=== PATIENT | female | born 1995 | race Caucasian/White ===

== ENCOUNTER 2016-08-13 12:28 | Outpatient (CLI) | payer OTHER ==
[2016-08-13 13:18] LABS: AMNISURE (ROM) NEGATIVE (NEGATIVE)
[2016-08-13 13:23] LABS: APPEARANCE,URINE CLEAR; BILIRUBIN,URINE NEGATIVE (NEGATIVE); GLUCOSE, URINE NEGATIVE (NEGATIVE); KETONES,URINE NEGATIVE (NEGATIVE); LEUKOCYTE ESTERASE,URINE NEGATIVE (NEGATIVE); NITRITE,URINE NEGATIVE (NEGATIVE); PROTEIN,URINE NEGATIVE (NEGATIVE); URINE SPECIFIC GRAVITY 1.002; UROBILINOGEN,URINE NEGATIVE mg/dL (<2.0)
[2016-08-13 13:41] LABS: URINE BARBITURATES SCREEN NEGATIVE; URINE METHADONE SCREEN NEGATIVE; URINE OPIATES LOW NEGATIVE; URINE PHENCYCLIDINE SCREEN NEGATIVE
--- NOTE | 2016-08-13 14:00 | L&D Flow Sheet ---
LD Flowsheet Datetime Report Generated by CPN: 08/13/2016 14:00 Datetime: 08/13/2016 13:30 Uterine Activity Monitor Mode: External; Palpation (Sydnee Baidy, RN) Frequency (min): none (Sydnee Baidy, RN) Assessment A Monitor Mode: External US (Sydnee Baidy, RN) FHR Baseline Rate : 150 (Sydnee Baidy, RN) Variability: Moderate 6-25 bpm (Sydnee Baidy, RN) Accelerations: 10X10 (Sydnee Baidy, RN) Decelerations: None (Sydnee Baidy, RN) Datetime: 08/13/2016 13:05 Vital Signs NBP Sys/Nikki/Mean (mmHg): 120 (QS system process) : 71 (QS system process) : 89 (QS system process) Pulse: 86 (QS system process) Datetime: 08/13/2016 13:02 Pain Pain Scale: 3 (Sydnee Baidy, RN) Pain Presence: Intermittent (Sydnee Baidy, RN) Pain Type: Cramping (Sydnee Baidy, RN) Pain Location: Abdomen; Back (Sydnee Baidy, RN) Pain Goal: 1 (Sydnee Baidy, RN) Vaginal Exam Vaginal Bleeding: None (Sydnee Baidy, RN) Maternal Assessment Level of Consciousness: Fully Conscious (Sydnee Eller, YUNG) DTR's/Clonus: DTRs 2+; No Clonus (Sydnee Eller, YUNG) Headache: Denies (Sydnee Eller, RN) Breath Sounds, Left: Clear and Equal (Sydnee Eller, RN) Breath Sounds, Right: Clear and Equal (Sydnee Eller, RN) Nausea/Vomiting: Denies (Sydnee Eller, YUNG) RUQ Epigastric Pain: Denies (Sydnee Eller, YUNG) Patient Care Patient Position/Activity: Semi-Fowlers (Sydnee Eller, YUNG) Teaching Instructional Method: Verbal; Patient Instructed; Verbalized Understanding (Sydnee Eller RN) Plan of Care: Plan of Care Discussed (Sydnee Eller RN) Unit Routine: [place] to Room; Call Wilde; Bed; Monitoring (Sydnee lEler RN) Datetime: 08/13/2016 12:51 Communication Communication Comments: Dr Todd notified of pt complaint of urge to push and possible srom. (Sydnee Eller RN)
--- NOTE | 2016-08-13 16:00 | L&D Flow Sheet ---
LD Flowsheet Datetime Report Generated by CPN: 08/13/2016 16:00 Datetime: 08/13/2016 15:26 Patient Care Comments: pt back from US, orders received for only toco to be reapplied. (Sydnee Baidy, RN) Datetime: 08/13/2016 14:37 Patient Care Comments: pt taken off monitor to go to US (Sydnee Baidy, RN) Datetime: 08/13/2016 14:30 Monitor Mode: External; Palpation (Sydnee Baidy, RN) Frequency (min): none (Sydnee Baidy, RN) Monitor Mode: External US (Sydnee Baidy, RN) FHR Baseline Rate : 145 (Sydnee Baidy, RN) Variability: Moderate 6-25 bpm (Sydnee Baidy, RN) Accelerations: 15X15 (Sydnee Baidy, RN) Decelerations: None (Sydnee Baidy, RN) Datetime: 08/13/2016 14:00 Monitor Mode: External; Palpation (Sydnee Baidy, RN) Frequency (min): none (Sydnee Baidy, RN) Monitor Mode: External US (Sydnee Baidy, RN) FHR Baseline Rate : 150 (Sydnee Baidy, RN) Variability: Moderate 6-25 bpm (Sydnee Baidy, RN) Accelerations: 15X15 (Sydnee Baidy, RN) Decelerations: None (Sydnee Baidy, RN)
[2016-08-13 16:02] LABS: CHLAM PCR NOT DETECTED (NOT DETECT)
== END 2016-08-13 17:30 | disposition home or self-care (01) ==
LOC: LC 12:28
PROVIDERS: ATTEND Student in an Organized Health Care Education/Training Program
PROC: 4A1HXCZ Monitoring of Products of Conception, Cardiac Rate, External Approach (ICD-10-PCS; principal; 2016-08-13)
DX: O47.1 False labor at or after 37 completed weeks of gestation (principal); Z3A.39 39 weeks gestation of pregnancy
CPT/HCPCS: 59025; 84112; 87086; 87210; 81001; 87081; 80307; 87491; 87591; 76815; Q0114

== ENCOUNTER 2016-09-03 20:02 | Outpatient (CLI) | payer OTHER ==
[2016-09-03 20:59] LABS: URINE BARBITURATES SCREEN NEGATIVE; URINE METHADONE SCREEN NEGATIVE; URINE OPIATES LOW NEGATIVE; URINE PHENCYCLIDINE SCREEN NEGATIVE
[2016-09-03 21:02] LABS: APPEARANCE,URINE SLIGHTLY-CLOUDY; BILIRUBIN,URINE NEGATIVE (NEGATIVE); CALCIUM OXALATE CRYSTALS,URINE FEW /HPF; GLUCOSE, URINE NEGATIVE (NEGATIVE); KETONES,URINE NEGATIVE (NEGATIVE); LEUKOCYTE ESTERASE,URINE TRACE (NEGATIVE); NITRITE,URINE NEGATIVE (NEGATIVE); PROTEIN,URINE NEGATIVE (NEGATIVE); URINE SPECIFIC GRAVITY 1.011; UROBILINOGEN,URINE NEGATIVE mg/dL (<2.0)
[2016-09-03] MEDS ORDERED: RINGERS SOLUTION,LACTATED 1,000 ML IV PRN (21:35)
[2016-09-03] MEDS ORDERED: ONDANSETRON HCL INJ/PF 4 MG/2 ML SDV IV ONE (21:35)
[2016-09-03] MEDS ORDERED: LOPERAMIDE HCL 2 MG CAPSULE PO ONE (21:35)
[2016-09-03] MEDS ORDERED: ONDANSETRON HCL INJ/PF 4 MG/2 ML SDV ONE (21:53)
[2016-09-03] MEDS ORDERED: LOPERAMIDE HCL 2 MG CAPSULE ONE (21:53)
--- NOTE | 2016-09-04 04:46 | L&D Admission Assessment ---
LD ADM ASMT Datetime Report Generated by CPN: 09/04/2016 04:45 PATIENT ASSESSMENT Assessment Type: Triage (09/03/2016 20:15:Rose Bacon RN) PAIN Pain Scale: patient states pain has improved but still uncomfortable at times especially when baby moves (09/03/2016 22:27:Rose Bacon RN) Pain Scale: 4 (09/03/2016 20:15:Rose Bacon RN) Pain Presence: Intermittent (09/03/2016 20:15:Rose Bacon RN) Pain Type: Contraction (09/03/2016 20:15:Rose Bacon RN) Pain Location: Abdomen; Other (Annotations: pelvis) (09/03/2016 20:15:Rose Bacon RN) Pain Related to Contraction: Yes (09/03/2016 20:15:Rose Bacon RN) CONTRACTIONS Frequency (min): uterine irritability (09/03/2016 22:49:Rose Bacon RN) Frequency (min): x1 with uterine irritability (09/03/2016 22:30:Rose Bacon RN) Frequency (min): none (09/03/2016 21:30:Rose Bacon RN) Frequency (min): irregular (09/03/2016 21:01:Rose Bacon RN) Frequency (min): q 10 minutes (09/03/2016 20:15:Rose Bacon RN) Duration (sec): 50 (09/03/2016 22:30:Rose Bacon RN) Duration (sec): 30-60 (09/03/2016 21:01:Rose Bacon RN) Quality: Mild (09/03/2016 22:30:Rose Bacon RN) Quality: Mild (09/03/2016 21:30:Rose Bacon RN) Quality: Mild (09/03/2016 21:01:Rose Bacon RN) Resting Tone [place]: Relaxed (09/03/2016 22:49:Roes Bacon RN) Resting Tone [place]: Relaxed (09/03/2016 22:30:Rose Bacon RN) Resting Tone Hercules: Relaxed (09/03/2016 21:30:Rose Bacon RN) Resting Tone Hercules: Relaxed (09/03/2016 21:01:Rose Bacon RN) VAGINAL EXAM Membranes Status: Intact (09/03/2016 20:15:Rose Bacon RN) NEURO Level of Consciousness: Fully Conscious (09/03/2016 20:15:Rose Bacon RN) DTR's/Clonus: DTRs 2+; No Clonus (09/03/2016 20:15:Rose Bacon RN) Headache: Denies (09/03/2016 20:15:Rose Bacon RN) Dizziness: No (09/03/2016 20:15:Rose Bacon RN) Blurred Vision: No (09/03/2016 20:15:Rose Bacon RN) Extremity Numbness/Tingling : None (09/03/2016 20:15:Rose Bacon RN) Extremity Movement: Full Range of Motion (09/03/2016 20:15:Rose Bacon RN) CARDIOVASCULAR Heart Rhythm: Regular (Annotations: normal s1s2 on auscultation with no evidence of murmur ) (09/03/2016 20:15:Rose Bacon RN) Nailbeds: [place] (09/03/2016 20:15:Rose Bacon RN) Capillary Refill: Less than 3 Seconds (09/03/2016 20:15:Rose Bacon RN) Lower Extremities Edema: None (09/03/2016 20:15:Rose Bacon RN) Lower Extremities Edema Degree: None (09/03/2016 20:15:Rose Bacon RN) Upper Extremities Edema: None (09/03/2016 20:15:Rose Bacon RN) Upper Extremities Edema Degree: None (09/03/2016 20:15:Rose Bacon RN) Facial Edema: None (09/03/2016 20:15:Rose Bacon RN) Umair's Sign Left Leg: Negative (09/03/2016 20:15:Rose Bacon RN) Umair's Sign Right Leg: Negative (09/03/2016 20:15:Rose Bacon RN) DVT RISK ASSESSMENT DVT Risk Age: Age less than 41 years (09/03/2016 20:15:Rose Bacon RN) DVT Risk BMI: BMI<31 (09/03/2016 20:15:Rose Bacon RN) DVT Risk Surgery: None Applicable (09/03/2016 20:15:Rose Bacon RN) DVT Risk Other: Women Only- or (<1 month) (09/03/2016 20:15:Rose Bacon RN) DVT Risk Total: 1 (09/03/2016 20:15:QS system process) DVT Risk Text: Low Risk (<10%) No specific measures, early ambulation (09/03/2016 20:15:QS system process) RESPIRATORY Respiratory Effort: Unlabored; Regular Rhythm; Equal Expansion (09/03/2016 20:15:Rose Bacon RN) Breath Sounds, Left: Clear and Equal (09/03/2016 20:15:Rose Bacon RN) Breath Sounds, Right: Clear and Equal (09/03/2016 20:15:Rose Bacon RN) Cough Productivity: None (09/03/2016 20:15:Rose Bacon RN) GASTROINTESTINAL Nausea/Vomiting: Present (Annotations: nausea) (09/03/2016 20:15:Rose Bacon RN) Bowel Sounds: Normoactive; All Quadrants (09/03/2016 20:15:Rose Bacon RN) RUQ Epigastric Pain: Denies (09/03/2016 20:15:Rose Bacon RN) Bowel Patterns: Diarrhea (Annotations: mutiple episodes ) (09/03/2016 20:15:Rose Bacon RN) Hemorrhoids: None (09/03/2016 20:15:Rose Bacon RN) Diet Type: Regular diet (09/03/2016 20:15:Rose Bacon RN) GENITOURINARY Bladder: Nondistended (09/03/2016 20:15:Rose Bacon RN) Frequency of Urination: No (09/03/2016 20:15:Rose Bacon RN) Urination Burning: Yes (Annotations: pressure when voiding ) (09/03/2016 20:15:Rose Bacon RN) CVA Tenderness: No (09/03/2016 20:15:Rose Bacon RN) Vaginal Bleeding: None (09/03/2016 20:15:Rose Bacon RN) Vaginal Discharge Amount: Small (09/03/2016 20:15:Rose Bacon RN) Vaginal Discharge Color: White (09/03/2016 20:15:Rose Bacon RN) Vaginal Discharge Odor: Non-Odorous (09/03/2016 20:15:Rose Bacon RN) Vaginal Discharge Character: Thin (09/03/2016 20:15:Rose Bacon RN) INTEGUMENTARY Skin Color: Normal for Race (09/03/2016 20:15:Rose Bacon RN) Skin Temperature: Warm (09/03/2016 20:15:Rose Bacon RN) Skin Moisture: Dry (09/03/2016 20:15:Rose Bacon RN) FRANK SKIN ASSESSMENT Frank Scale Sensory Perception: No Impairment- Responds to verbal commands. Has no sensory deficit which would limit ability to feel or voice pain or discomfort (09/03/2016 20:15:Rose Bacon RN) Frank Scale Moisture: Rarely Moist- Skin is usually dry. Linen only requires changing at routine intervals (09/03/2016 20:15:Rose Bacon RN) Frank Scale Activity: Walks Frequently- Walks outside the room at least twice a day and inside room at least every 2 hours during the day. (09/03/2016 20:15:Rose Bacon RN) Frank Scale Mobility: No Limitations- Makes major and frequent changes in position without assistance (09/03/2016 20:15:Rose Bacon RN) Frank Scale Nutrition: Excellent- Eats most of every meal. Never refuses a meal. Usually eats a total of 4 or more servings of meat and dairy products. Occasionally eats between meals. Does not require supplementation (09/03/2016 20:15:Rose Bacon RN) Frank Scale Friction and Shear: No Apparent Problem- Moves in bed and in chair independently and has sufficient muscle strength to lift up completely during move. Maintains good position in bed or chair at all times (09/03/2016 20:15:Rose Bacon RN) Frank Scale Total: 23 (09/03/2016 20:15:QS system process) Frank Scale Risk: No Risk of Pressure Ulcer Noted at this Time (09/03/2016 20:15:QS system process) SUPPORT Family Support: Significant Other supportive, at bedside frequently (09/03/2016 20:15:Rose Bacon RN) Emotional State: Calm/Relaxed (09/03/2016 20:15:Rose Bacon RN) SAFETY Call [place]de Within Reach: Yes (09/03/2016 20:15:Rose Bacon RN) Side Rails Up: Yes (09/03/2016 20:15:Rose Bacon RN) Bed Wheels Locked: Yes (09/03/2016 20:15:Rose Bacon RN) Arm Bands Present: Yes (09/03/2016 20:15:Rose Bacon RN) Isolation: [place] (09/03/2016 20:15:Rose Bacon RN) FALL SCREEN Fall Risk History of Falling: (0) No (09/03/2016 20:15:Rose Bacon RN) Fall Risk Secondary Diagnosis: (0) No (09/03/2016 20:15:Rose Baocn RN) Fall Risk Ambulatory Aid: (0) None/Bedrest/Wheelchair/Nurse Assist (09/03/2016 20:15:Rose Bacon RN) Fall Risk IV Therapy: (0) No (09/03/2016 20:15:Rose Bacon RN) Fall Risk Gait: (0) Normal/Bedrest/Immobile (09/03/2016 20:15:Rose Bacon RN) Fall Risk Mental Status: (0) Oriented to Own Ability (09/03/2016 20:15:Rose Bacon RN) Fall Risk Score: 0 (09/03/2016 20:15:QS system process) Fall Risk Score Definition: No Risk: No action required (09/03/2016 20:15:QS system process) RECENT TRAVEL/INFECTIOUS DISEASE Recent Exp Communicable Disease: No (09/03/2016 20:15:Rose Bacon RN) Cough or Fever: No (09/03/2016 20:15:Rose Bacon RN) Foreign Travel Past 10 Days: No (09/03/2016 20:15:Rose Bacon RN) Open Wounds or Sores: No (09/03/2016 20:15:Rose Bacon RN) Prior Antibiotic Resistance Tx: No (09/03/2016 20:15:Rose Bacon RN) Cultures Obtained: Not Applicable (09/03/2016 20:15:Rose Bacon RN) Isolation Initiated: No (09/03/2016 20:15:Rose Bacon RN) Pt/Family Education: Handwashing Hygiene (09/03/2016 20:15:Rose Bacon RN) BABY A FHR Baseline Rate (bpm) Baby A: 145 (09/03/2016 22:49:Rose Bacon RN) FHR Baseline Rate (bpm) Baby A: 150 (09/03/2016 22:30:Rose Bacon RN) FHR Baseline Rate (bpm) Baby A: 150 (09/03/2016 21:30:Rose Bacon RN) FHR Baseline Rate (bpm) Baby A: 150 (09/03/2016 21:01:Rose Bacon RN) Variability Baby A: Moderate 6-25 bpm (09/03/2016 22:49:Rose Bacon RN) Variability Baby A: Moderate 6-25 bpm (09/03/2016 22:30:Rose Bacon RN) Variability Baby A: Moderate 6-25 bpm (09/03/2016 21:30:Rose Bacon RN) Variability Baby A: Moderate 6-25 bpm (09/03/2016 21:01:Rose Bacon RN) Accelerations Baby A: 15X15 (09/03/2016 22:49:Rose Bacon RN) Accelerations Baby A: 10X10 (09/03/2016 22:30:Rose Bacon RN) Accelerations Baby A: 15X15 (09/03/2016 21:30:Rose Bacon RN) Decelerations Baby A: None (09/03/2016 22:49:Rose Bacon RN) Decelerations Baby A: None (09/03/2016 22:30:Rose Bacon RN) Decelerations Baby A: None (09/03/2016 21:30:Rose Bacon RN)
--- NOTE | 2016-09-04 04:46 | Antepartum Discharge Summary ---
Antepartum DC Datetime Report Generated by CPN: 09/04/2016 04:45 DIET/ACTIVITY/RESTRICTIONS Diet: Regular (09/03/2016 23:04:Rose Bacon, YUNG) Activity: Normal Activity (09/03/2016 23:04:Rose Bacon, RN) TEACHING/INSTRUCTIONS/REFERRALS Instructions Given To: patient and (09/03/2016 23:04:Rose Bacon RN) Instructions Understood: Patient Verbalized Understanding; Support Person Verbalized Understanding (09/03/2016 23:04:Rose Bacon RN) Referrals: None (09/03/2016 23:04:Rose Bacon RN) Educational Materials- Other: kick counts, labor signs, and wha approved meds (09/03/2016 23:04:Rose Bacon RN) DISCHARGE INFORMATION Discharged AMA: No (09/03/2016 23:04:Rose Bacon RN) Discharge Date/Time: 09/03/2016 23:04 (09/03/2016 23:04:Rose Bacon RN) Discharged To: Home (09/03/2016 23:04:Rose Bacon RN) Discharge Provider Name: Dr. Hines (09/03/2016 23:04:Rose Bacon RN) Accompanied By: (09/03/2016 23:04:Rose Bacon RN) Discharge Method: Ambulatory (09/03/2016 23:04:Rose Bacon RN) Condition: Stable (09/03/2016 23:04:Rose Bacon RN) FOLLOW UP INFORMATION Follow Up With: [facility] (09/03/2016 23:04:Rose Bacon RN) Follow Up On: As Scheduled (09/03/2016 23:04:Rose Bacon RN) Comments: patient has appt scheduled with sousa (09/03/2016 23:04:Rose Bacon RN)
--- NOTE | 2016-09-04 04:46 | L&D Discharge Summary ---
OB Discharge Summary Datetime Report Generated by CPN: 09/04/2016 04:45 DISCHARGE DIAGNOSIS Diagnosis/Symptoms: False Labor; Gastroenteritis Diagnoses/Symptoms Other: cramping Treatment/Procedures Other: cervical length Gestation: 29.2 Number of Babies in Womb: 1 Parity: 0 DIET/ACTIVITY/RESTRICTIONS Diet: Regular Activity: Normal Activity TEACHING/INSTRUCTIONS/REFERRALS Instructions Given To: patient and Instructions Understood: Patient Verbalized Understanding; Support Person Verbalized Understanding Referrals: None Educational Materials- Other: kick counts, labor signs, and wha approved meds DISCHARGE INFORMATION Discharged AMA: No Discharge Date/Time: 09/03/2016 23:04 Discharged To: Home Discharge Provider Name: Dr. Hines Accompanied By: Discharge Method: Ambulatory Condition: Stable FOLLOW UP INFORMATION Follow Up With: [facility] Follow Up On: As Scheduled Follow Up Phone Number: [facility] - Comments: patient has appt scheduled with merry
--- NOTE | 2016-09-04 04:46 | L&D Flow Sheet ---
LD Flowsheet Datetime Report Generated by CPN: 09/04/2016 04:45 Datetime: 09/03/2016 23:04 Communication Additional Nursing Comments: discharged home in stable condition (Rose Kossmann, RN) Datetime: 09/03/2016 22:49 Uterine Activity Monitor Mode: External; Palpation (Rose Bacon RN) Frequency (min): uterine irritability (Rose Bacon RN) Resting Tone (Palpate): Relaxed (Rose Bacon, YUNG) Assessment A Monitor Mode: External US (Rose Bacon RN) FHR Baseline Rate : 145 (Rose Bacon RN) Variability: Moderate 6-25 bpm (Rose Bacon RN) Accelerations: 15X15 (Rose Bacon, YUNG) Decelerations: None (Rose Bacon RN) Comments: AGA (Rose Bacon RN) Datetime: 09/03/2016 22:30 Uterine Activity Monitor Mode: External; Palpation (Rose Isamarann, RN) Frequency (min): x1 with uterine irritability (Rose Bacon, RN) Quality: Mild (Rose Isamarann, RN) Duration (sec): 50 (Rose Isamarann, RN) Resting Tone (Palpate): Relaxed (Rose Jessysmann, RN) Assessment A Monitor Mode: External US (Rose Bacon, RN) FHR Baseline Rate : 150 (Rose Bacon, RN) Variability: Moderate 6-25 bpm (Rose Bacon, RN) Accelerations: 10X10 (Rose Bacon, RN) Decelerations: None (Rose Bacon, RN) Comments: AGA (Rose Bacon, RN) Datetime: 09/03/2016 22:27 NBP Sys/Nikki/Mean (mmHg): 119 (QS system process) : 59 (QS system process) : 82 (QS system process) Pulse: 86 (QS system process) Respirations: 16 (Rose Jessysully, RN) Pain Pain Scale: patient states pain has improved but still uncomfortable at times especially when baby moves (Rose Bacon, YUNG) LaborFlag: Labor (QS system process) Datetime: 09/03/2016 22:25 Communication Comments: Dr. Hines aware of cervical length 2.8cm. Orders received to discharge home to followup in office. (Rose Bacon, RN) Datetime: 09/03/2016 22:03 Medications Antiemetics/Antacids: Zofran IV (mg) @; Other Antiemetic/Antacid @ (Annotations: imodium 2mg po, zofran 4mg sivp) (Rose Bacon RN) Datetime: 09/03/2016 21:58 Patient Care IV/Blood Work: IV Started; IV Infusing per Order (Rose Kossmann, RN) Datetime: 09/03/2016 21:55 Patient Care Comments: arrived back on unit from ultrasound, awaiting results. (Rose Kossmann, RN) Datetime: 09/03/2016 21:33 Patient Care Comments: to ultrasound (Rose Kossmann, RN) Datetime: 09/03/2016 21:31 NBP Sys/Nikki/Mean (mmHg): 110 (QS system process) : 70 (QS system process) : 86 (QS system process) Pulse: 94 (QS system process) LaborFlag: Labor (QS system process) Datetime: 09/03/2016 21:30 Uterine Activity Monitor Mode: External; Palpation (Rose Bacon, RN) Frequency (min): none (Rose Pennann, RN) Quality: Mild (Rose Jessysmann, RN) Resting Tone (Palpate): Relaxed (Rose Jessysmann, RN) Assessment A Monitor Mode: External US (Rose Bacon, RN) FHR Baseline Rate : 150 (Rose Pennann, RN) Variability: Moderate 6-25 bpm (Rose Kossmann, RN) Accelerations: 15X15 (Rose Kossmann, RN) Decelerations: None (Rose Jessysmann, RN) Comments: AGA (Rose Jessysmann, RN) Datetime: 09/03/2016 21:15 Communication Comments: Discussed POC with Dr. Hines regarding patient history, urine results, monitoring. Orders for cervical length, lr bolus x 1 liter, zofran 4mg sivp, and imodium 2mg tab po. (Rose Bacon, RN) Datetime: 09/03/2016 21:01 NBP Sys/Nikki/Mean (mmHg): 122 (QS system process) : 80 (QS system process) : 95 (QS system process) Pulse: 96 (QS system process) Uterine Activity Monitor Mode: External; Palpation (Rose Bacon RN) Frequency (min): irregular (Rose Bacon RN) Quality: Mild (Rose Bacon RN) Duration (sec): 30-60 (Rose Bacon RN) Resting Tone (Palpate): Relaxed (Rose Bacon, YUNG) Assessment A Monitor Mode: External US (Rose Bacon RN) FHR Baseline Rate : 150 (Rose Bacon RN) Variability: Moderate 6-25 bpm (Rose Bacon RN) Comments: broken tracing due to movement that was palpated and audible. scant tracing of heart rate found to be 150 and aga (Rose Bacon RN) LaborFlag: Labor (QS system process) Datetime: 09/03/2016 20:58 Patient Position/Activity: Left Lateral (Dunia Andreas, RN) Datetime: 09/03/2016 20:52 Comments: RN at bedside (Dunia Andreas, RN) Datetime: 09/03/2016 20:31 NBP Sys/Nikki/Mean (mmHg): 119 (QS system process) : 69 (QS system process) : 87 (QS system process) Pulse: 90 (QS system process) LaborFlag: Labor (QS system process) Datetime: 09/03/2016 20:15 Vital Signs Stage of : Labor (Rose Jessysmann, RN) Frequency (min): q 10 minutes (Rose Isamarann, RN) Pain Pain Scale: 4 (Rose Bacon, YUNG) Pain Presence: Intermittent (Rose Bacon, YUNG) Pain Type: Contraction (Rose Bacon, YUNG) Pain Location: Abdomen; Other (Annotations: pelvis) (Rose Bacon, YUNG) Pain Coping: Talking Through Contractions; Breathing Through Contractions (Rose Bacon, YUNG) Vaginal Exam Membrane Status: Intact (Rose Bacon, YUNG) Vaginal Bleeding: None (Rose Bacon, YUNG) Maternal Assessment Level of Consciousness: Fully Conscious (Rose Bacon, YUNG) DTR's/Clonus: DTRs 2+; No Clonus (Rose Bacon, YUNG) Headache: Denies (Rose Bacon RN) Breath Sounds, Left: Clear and Equal (Rose Bacon RN) Breath Sounds, Right: Clear and Equal (Rose Bacon RN) Nausea/Vomiting: Present (Annotations: nausea) (Rose Bacon RN) RUQ Epigastric Pain: Denies (Rose Bacon RN) LaborFlag: Labor (QS system process)
--- NOTE | 2016-09-04 04:46 | L&D Current Admission ---
Current Admit Datetime Report Generated by CPN: 09/04/2016 04:45 ADMISSION INFORMATION Chief Complaint: Contractions; Pain on Urination; Nausea; Other (Annotations: diarrhea frequently ) (09/03/2016 20:15:Rose Bacon RN) Chief Complaint: Uterine Cramping; Other (08/13/2016 13:02:Sydnee Eller RN)
--- NOTE | 2016-09-04 04:46 | L&D General Admission ---
General Admit Datetime Report Generated by CPN: 09/04/2016 04:45 INFORMATION Patient Age: 20 (08/13/2016 12:28:QS system process) EDC: 11/17/2016 00:00 (08/13/2016 12:43:Sydnee Eller RN) : 1 (08/13/2016 12:43:Sydnee Eller RN) Para: 0 (08/13/2016 17:32:Sydnee Eller RN) Para: 0 (08/13/2016 12:43:Sydnee Eller RN) Term: 0 (08/13/2016 12:43:Sydnee Eller RN) : 0 (08/13/2016 12:43:Sydnee Eller RN) Spontaneous Abortions: 0 (08/13/2016 12:43:Sydnee Eller RN) Induced Abortions: 0 (08/13/2016 12:43:Sydnee Eller RN) Livin (08/13/2016 12:43:Sydnee Eller RN) Cesareans: 0 (08/13/2016 12:43:Sydnee Eller RN) VBACs: 0 (08/13/2016 12:43:Sydnee Eller RN) Ectopic: 0 (08/13/2016 12:43:Sydnee Eller RN) Multiple Births: 0 (08/13/2016 12:43:Sydnee Eller RN) Baby, Number in Womb: 1 (08/13/2016 17:32:Sydnee Eller RN) Baby, Number in Womb: 1 (08/13/2016 12:43:Sydnee Eller RN) CARE Primary Design Engineering Specialist: [facility] (08/13/2016 12:43:Sydnee Eller RN) Prepregnancy Weight (lb): 138 (Annotations: Data stored by CPN on behalf of user) (08/13/2016 12:43:Sydnee Eller RN) Prepregnancy Weight (kg): 62.7 (08/13/2016 12:43:QS system process) Height (in): 64 (08/13/2016 12:57:QS system process) ALLERGIES Medication Allergy: No (08/13/2016 12:43:Sydnee Eller RN) Medication Allergies: No Known Allergies (08/13/2016) (08/13/2016 12:56:QS system process) Latex Allergy: No Latex Allergies (08/13/2016 12:43:Sydnee Eller RN) Food Allergies: n/a (08/13/2016 12:43:Sydnee Eller RN) Environmental Allergies: n/a (08/13/2016 12:43:Sydnee Eller RN) COMMUNICATION Primary Language: Swedish (08/13/2016 12:43:Sydnee Eller RN) Medical Tx Preferred Language: Swedish (08/13/2016 12:43:Sydnee Eller RN) Communication Barrier(s): None (08/13/2016 12:43:Sydnee Eller RN) DEMOGRAPHICS Address: [address] [place] [address] (08/13/2016 12:28:QS system process) Zipcode: [address] (08/13/2016 12:28:QS system process) Home (08/13/2016 12:28:QS system process) SSN: [id number] (08/13/2016 12:28:QS system process) Next of Kin Name: REYES STEVE (08/13/2016 12:28:QS system process) Next of Kin (08/13/2016 12:28:QS system process) Next of Kin Relationship: SPO (08/13/2016 12:28:QS system process) Date of : 1995 (08/13/2016 12:28:QS system process) Marital Status: (08/13/2016 12:28:QS system process) Sex: Female (08/13/2016 12:28:QS system process) Race: (08/13/2016 12:28:QS system process) Ethnicity: Non- or (08/13/2016 12:28:QS system process) Worship: None (08/13/2016 12:28:QS system process) DRUG AND ALCOHOL USE Alcohol: No (08/13/2016 12:43:Sydnee Eller RN) Cigarettes: Never Smoker. [id number] (08/13/2016 12:43:Sydnee Eller RN) Marijuana: No (08/13/2016 12:43:Sydnee Eller RN) Cocaine: No (08/13/2016 12:43:Sydnee Eller RN) Other Illicit Drugs: No (08/13/2016 12:43:Sydnee Eller RN) VACCINE HISTORY Influenza Vaccine: Yes (08/13/2016 12:43:Sydnee Eller RN) Influenza Date: 01/2016 (08/13/2016 12:43:Sydnee Eller RN) Pneumococcal Vaccine: No (08/13/2016 12:43:Sydnee Eller RN) Tetanus Vaccine: Uncertain (08/13/2016 12:43:Sydnee Eller RN) Tdap Vaccine: Uncertain (08/13/2016 12:43:Sydnee Eller RN) Hepatitis B Vaccine: Uncertain (08/13/2016 12:43:Sydnee Eller RN) Feeding Preference: Breast (08/13/2016 12:43:Sydnee Eller RN) Circumcision: N/A (08/13/2016 12:43:Rose Bacon RN) Classes Attended: Yes (08/13/2016 12:43:Rose Bacno RN) Tubal Ligation: No (08/13/2016 12:43:Rose Bacon RN) Tubal Authorization Signed: N/A (08/13/2016 12:43:Rose Bacon RN) Consent: N/A (08/13/2016 12:43:Rose Kossmann, RN) Consent Signed: N/A (08/13/2016 12:43:Rose Bacon RN) Pain Management Plans: Spinal (08/13/2016 12:43:Rose Bacon RN) Other Pain Management Plans: scheduled for csection (08/13/2016 12:43:Rose Bacon RN) Plans for Labor and Delivery: None (08/13/2016 12:43:Rose Bacon RN) Support Person: reyes (08/13/2016 12:43:Rose Bacon RN) Support Person Relationship: (08/13/2016 12:43:Rose Bacon RN) Cultural/Spritual Practice: Eliana (08/13/2016 12:43:Rose Bacon RN) Spir/Cult Dietary Needs: No (08/13/2016 12:43:Rose Bacon RN) LIVING SITUATION/DISCHARGE PLAN Living Arrangements: House (08/13/2016 12:43:Rose Bacon RN) Adequate Access to:: Electric; Heat; Refrigeration; Plumbing/Running water; Phone; Transportation (08/13/2016 12:43:Rose Bacon RN) WIC Program: Needs referral (08/13/2016 12:43:Rose aBcon RN) Discharge Vulcanized Fiber Unit Operator Person: reyes (08/13/2016 12:43:Rose Bacon RN) Person to Help after Discharge: reyes (08/13/2016 12:43:Rose Bacon RN) Currently Using Commun Resources: Eliana (08/13/2016 12:43:Rose Bacon RN) Outside Agency/Oceanographic Meteorologist: No (08/13/2016 12:43:Rose Bacon RN) Car Seat for Discharge: Yes (08/13/2016 12:43:Rose Bacon RN) Adoption Requested: No (08/13/2016 12:43:Rose Bacon RN) Pt Contact w/ Post : N/A (08/13/2016 12:43:Rose Bacon RN) LABS Blood Type: O Positive (08/13/2016 12:43:Rose Bacon RN) Group Beta Strep: postive (08/13/2016 13:35:Aisha Encinas RN) Gonorrhea: Negative (08/13/2016 12:43:Aisha Encinas RN) Chlamydia: Negative (08/13/2016 12:43:Aisha Encinas RN) RPR/VDRL: Nonreactive (Annotations: Data stored by N on behalf of user) (08/13/2016 12:43:Rose Bacon RN) HIV Results: negative (08/13/2016 12:43:Rose Bacon RN) Hepatitis B: Negative (08/13/2016 12:43:Rose Bacon RN) Rubella: Immune (08/13/2016 12:43:Rose Bacon RN) OB/PREVIOUS HISTORY Current Procedures: Ultrasound (08/13/2016 12:43:Sydnee Eller RN) History of Previous : No (08/13/2016 12:43:Sydnee Eller RN) History of Gestational Diabetes: No (08/13/2016 12:43:Sydnee Eller RN) History of PIH: No (08/13/2016 12:43:Sydnee Eller RN) History of Incompetent Cervix: No (08/13/2016 12:43:Sydnee Eller RN) History of Placenta Previa/Abrup: No (08/13/2016 12:43:Sydnee Eller RN) History of Macrosomia: No (08/13/2016 12:43:Sydnee Eller RN) History of IUGR: No (08/13/2016 12:43:Sydnee Eller RN) History of Hemorrhage: No (08/13/2016 12:43:Sydnee Eller RN) History of Loss/Stillborn: No (08/13/2016 12:43:Sydnee Eller RN) History of : No (08/13/2016 12:43:Sydnee Eller RN) History of D (Rh) Sensitization: No (08/13/2016 12:43:Sydnee Eller RN) History Recurrent Loss/Stillborn: No (08/13/2016 12:43:Sydnee Eller RN) History Depression/PP Depression: No (08/13/2016 12:43:Sydnee Eller RN) History of Uterine Anomaly/ROSIO: No (08/13/2016 12:43:Sydnee Eller RN) History of Infertility: No (08/13/2016 12:43:Sydnee Eller RN) History of ART Treatment: No (08/13/2016 12:43:Sydnee Eller RN) History of ROSIO: No (08/13/2016 12:43:Sydnee Eller RN) Comments Obstetrical History: G1 current will have to deliver at [place] 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), GDM diet controlled (08/13/2016 12:43:Rose Bacon RN) MEDICAL HISTORY Med Hx Diabetes: Yes (08/13/2016 12:43:Rose Bacon RN) Diabetes Type: Gestational Diabetes (08/13/2016 12:43:Rose Bacon RN) Med Hx Hypertension: No (08/13/2016 12:43:Sydnee Eller RN) Med Hx Heart Disease: No (08/13/2016 12:43:Sydnee Eller RN) Med Hx Autoimmune Disorder: No (08/13/2016 12:43:Sydnee Eller RN) Med Hx Kidney Disease/UTI: No (08/13/2016 12:43:Sydnee Eller RN) Med Hx Neurologic/Epilepsy: No (08/13/2016 12:43:Sydnee Eller RN) Med Hx Psychiatric Disorders: No (08/13/2016 12:43:Sydnee Eller RN) Med Hx Hepatitis/Liver Disease: No (08/13/2016 12:43:Sydnee Eller RN) Med Hx Varicosities/Phlebitis: No (08/13/2016 12:43:Sydnee Eller RN) Med Hx Thyroid Dysfunction: No (08/13/2016 12:43:Sydnee Eller RN) Med Hx Trauma/Violence: No (08/13/2016 12:43:Sydnee Eller RN) Med Hx Blood Transfusion: No (08/13/2016 12:43:Sydnee Eller RN) Med Hx Pulmonary (Asthma,TB): No (08/13/2016 12:43:Sydnee Eller RN) Med Hx Breast: No (08/13/2016 12:43:Sydnee Eller RN) Med Hx SPORTS BOOK SERVER Surgery: No (08/13/2016 12:43:Sydnee Eller RN) Med Hx Hospitalization/Surgery: No (08/13/2016 12:43:Sydnee Eller RN) Med Hx Anesthetic Complications: No (08/13/2016 12:43:Sydnee Eller RN) Med Hx Abnormal Pap Smear: No (08/13/2016 12:43:Sydnee Eller RN) Other Medical Diseases: No (08/13/2016 12:43:Sydnee Eller RN) Med Hx Significant Family Hx: No (08/13/2016 12:43:Sydnee Eller RN) 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 (08/13/2016 12:43:Rose Bacon RN) INFECTIOUS HISTORY Inf Hx Gonorrhea: No (08/13/2016 12:43:Sydnee Eller RN) Inf Hx Chlamydia: No (08/13/2016 12:43:Sydnee Eller RN) Inf Hx Syphilis: No (08/13/2016 12:43:Sydnee Eller RN) Inf Hx HIV/AIDS: No (08/13/2016 12:43:Sydnee Eller RN) Inf Hx Human Papilloma Virus: No (08/13/2016 12:43:Sydnee Eller RN) Inf Hx Pt/Partner Genital Herpes: No (08/13/2016 12:43:Sydnee Eller RN) Inf Hx Tuberculosis/Exposure: No (08/13/2016 12:43:Sydnee Eller RN) Inf Hx Hepatitis B,C: No (08/13/2016 12:43:Sydnee Eller RN) Inf Hx Rash or Viral Illness: No (08/13/2016 12:43:Sydnee Eller RN) GENETIC HISTORY Gen Hx Age >=35 at HAO: No (08/13/2016 12:43:Sydnee Eller RN) Gen Hx Thalassemia: Yes (08/13/2016 12:43:Rose Bacon RN) Gen Hx Congenital Heart Defect: No (08/13/2016 12:43:Sydnee Eller RN) Gen Hx Neural Tube Defect: Yes (08/13/2016 12:43:Sydnee Eller RN) Gen Hx Down's Syndrome: No (08/13/2016 12:43:Sydnee Eller RN) Gen Hx Marcial-Sachs: No (08/13/2016 12:43:Sydnee Eller RN) Gen Hx Abbey: No (08/13/2016 12:43:Sydnee Eller RN) Gen Hx Familial Dysautonomia: No (08/13/2016 12:43:Sydnee Eller RN) Gen Hx Sickle Cell Disease/Trait: No (08/13/2016 12:43:Sydnee Eller RN) Gen Hx Hemophilia/Blood Disorder: No (08/13/2016 12:43:Rose Bacon RN) Gen Hx Muscular Dystrophy: No (08/13/2016 12:43:Sydnee Eller RN) Gen Hx Cystic Fibrosis: No (08/13/2016 12:43:Sydnee Eller RN) Gen Hx Huntingtons Chorea: No (08/13/2016 12:43:Sydnee Eller RN) Gen Hx Mental Retardation/Autism: No (08/13/2016 12:43:Sydnee Eller RN) Gen Hx Tested for Fragile X: No (08/13/2016 12:43:Sydnee Eller RN) Gen Hx Other Inher/Chromosomal: No (08/13/2016 12:43:Sydnee Eller RN) Gen Hx Maternal Metabolic DO: No (08/13/2016 12:43:Sydnee Eller RN) Gen Hx Pt Father or FOB Defect: No (08/13/2016 12:43:Sydnee Eller RN) Gen Hx Other Genetic History: No (08/13/2016 12:43:Sydnee Eller RN) Gen Hx Drugs/Meds since LMP: No (08/13/2016 12:43:Sydnee Eller RN) Gen Hx Medications: vitamins (08/13/2016 12:43:Rose Bacon RN) Details of Genetic History: mother is carrier of SMA, baby has spina bifida, beta thal minor fob has normal electrophoresis (08/13/2016 12:43:Rose Bacon RN)
== END 2016-09-03 23:04 | disposition home or self-care (01) ==
LOC: LC 20:02
PROVIDERS: ATTEND Obstetrics & Gynecology
PROC: 4A1HXCZ Monitoring of Products of Conception, Cardiac Rate, External Approach (ICD-10-PCS; principal; 2016-09-03)
DX: O47.03 False labor before 37 completed weeks of gestation, third trimester (principal); Z3A.29 29 weeks gestation of pregnancy
CPT/HCPCS: 59899; 81001; 80307; 76815; J2405

== ENCOUNTER 2016-09-22 10:50 | Outpatient (CLI) | payer OTHER ==
[2016-09-22] MEDS ORDERED: TERBUTALINE SULFATE INJ/PF 1 MG/1 ML SDV SUBCUT ONE (11:52)
[2016-09-22] MEDS ORDERED: TERBUTALINE SULFATE INJ/PF 1 MG/1 ML SDV ONE (11:53)
--- NOTE | 2016-09-22 12:40 | Non Stress Test Report ---
Non Stress Test Datetime Report Generated by CPN: 09/22/2016 12:40 DEMOGRAPHIC EGA NST: 32.0 INDICATION Indication for Study: Ordered by Provider Indication for Study (NST) Other: repeat NST MONITORING Monitor Explained: Monitor Explained; Test Explained; Patient Verbalized Understanding Time on Monitor: 09/22/2016 11:04 Time off Monitor: 09/22/2016 12:37 NST Duration: 93 NST INTERVENTIONS NST Interventions: Reposition Patient BABY A: [id number] BABY A Movement : Present FHR Baseline : 155 Accelerations : 15X15 Decelerations : None Variability : Moderate 6-25bpm NST Review: Meets Criteria for Reactive NST NST Review and Verified By : D Bellavance RNC NST Results: Reactive NST REPORT Report Trigger: Send Report
--- NOTE | 2016-09-22 15:46 | L&D Discharge Summary ---
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 Treatment/Procedures Other: cervical length Gestation: 31.6 Number of Babies in Womb: 1 Parity: 0 DIET/ACTIVITY/RESTRICTIONS Diet: Regular Activity: Normal Activity TEACHING/INSTRUCTIONS/REFERRALS Instructions Given To: patient Instructions Understood: Patient Verbalized Understanding Referrals: None Educational Materials- Other: kick counts and work note for DISCHARGE INFORMATION Discharged AMA: No Discharge Date/Time: 09/22/2016 12:37 Discharged To: Home Discharge Provider Name: Dr Farrell Accompanied By: self Discharge Method: Ambulatory Condition: Stable FOLLOW UP INFORMATION Follow Up With: [facility] Follow Up On: As Scheduled Follow Up Phone Number: [facility] - Comments: patient has appt scheduled with sousa
== END 2016-09-22 12:46 | disposition home or self-care (01) ==
LOC: LC 10:50
PROVIDERS: ATTEND Obstetrics & Gynecology
PROC: 4A1HXCZ Monitoring of Products of Conception, Cardiac Rate, External Approach (ICD-10-PCS; principal; 2016-09-22)
DX: Z34.93 Encounter for supervision of normal pregnancy, unspecified, third trimester (principal); Z36 Encounter for antenatal screening of mother; Z3A.31 31 weeks gestation of pregnancy
CPT/HCPCS: 59025; J3105

== ENCOUNTER 2016-09-25 11:48 | Outpatient (CLI) | payer OTHER ==
[2016-09-25 13:08] LABS: APPEARANCE,URINE SLIGHTLY-CLOUDY; BILIRUBIN,URINE NEGATIVE (NEGATIVE); GLUCOSE, URINE NEGATIVE (NEGATIVE); KETONES,URINE NEGATIVE (NEGATIVE); LEUKOCYTE ESTERASE,URINE TRACE (NEGATIVE); NITRITE,URINE NEGATIVE (NEGATIVE); PROTEIN,URINE NEGATIVE (NEGATIVE); URINE SPECIFIC GRAVITY 1.006; UROBILINOGEN,URINE NEGATIVE mg/dL (<2.0)
--- NOTE | 2016-09-25 13:10 | Non Stress Test Report ---
Non Stress Test Datetime Report Generated by CPN: 09/25/2016 13:09 DEMOGRAPHIC EGA NST: 32.3 INDICATION Indication for Study: Diabetes Mellitus; Ordered by Provider MONITORING Monitor Explained: Monitor Explained; Test Explained; Patient Verbalized Understanding Time on Monitor: 09/25/2016 12:34 Time off Monitor: 09/25/2016 13:01 NST Duration: 27 NST INTERVENTIONS NST Interventions: PO Hydration; Reposition Patient Physician Notified NST: H MYNOR, CNM BABY A Movement : Present Contraction Frequency : NONE FHR Baseline : 145 Accelerations : 15X15 Decelerations : None Variability : Moderate 6-25bpm NST Review: Meets Criteria for Reactive NST NST Review and Verified By : YUNG Yang Results: Reactive NST REPORT Report Trigger: Send Report
[2016-09-25 13:32] LABS: URINE BARBITURATES SCREEN NEGATIVE; URINE METHADONE SCREEN NEGATIVE; URINE OPIATES LOW NEGATIVE; URINE PHENCYCLIDINE SCREEN NEGATIVE
--- NOTE | 2016-09-25 16:12 | L&D Discharge Summary ---
OB Discharge Summary Datetime Report Generated by CPN: 09/25/2016 16:12 DISCHARGE DIAGNOSIS Diagnosis/Symptoms: Reassuring Surveillance - Annotate Details; Other Diagnoses/Symptoms Other: REACTIVE NST- GDM Treatment/Procedures Other: cervical length Gestation: 32.0 Number of Babies in Womb: 1 Parity: 0 DIET/ACTIVITY/RESTRICTIONS Diet: Regular Activity: Normal Activity TEACHING/INSTRUCTIONS/REFERRALS Instructions Given To: patient Instructions Understood: Patient Verbalized Understanding; Support Person Verbalized Understanding Referrals: None Educational Materials- Other: REVIEWED KICK COUNTS CARE NOTES RECEIVED @ PRIOR VISIT- PT HAD NO QUESTIONS. DISCHARGE INFORMATION Discharged AMA: No Discharge Date/Time: 09/25/2016 13:05 Discharged To: Home Discharge Provider Name: Alfonzo LOWE CNDestiny Accompanied By: FOB Discharge Method: Ambulatory Condition: Stable FOLLOW UP INFORMATION Follow Up With: [facility] Follow Up On: As Scheduled Follow Up Phone Number: [facility] - Comments: patient has appt scheduled with sousa
--- NOTE | 2016-09-27 22:48 | Antepartum Discharge Summary ---
Antepartum DC Datetime Report Generated by CPN: 09/27/2016 22:45 Diet: Regular (09/25/2016 13:05:Cindy Mackay RN) Activity: Normal Activity (09/25/2016 13:05:Cindy Mackay RN) Instructions Understood: Patient Verbalized Understanding; Support Person Verbalized Understanding (09/25/2016 13:05:Cindy Mackay RN) Referrals: None (09/25/2016 13:05:Cindy Mackay RN) Educational Materials- Other: REVIEWED KICK COUNTS CARE NOTES RECEIVED @ PRIOR VISIT- PT HAD NO QUESTIONS. (09/25/2016 13:05:Cindy Mackay RN) Discharged AMA: No (09/25/2016 13:05:Cindy Mackay RN) Discharge Date/Time: 09/25/2016 13:05 (09/25/2016 13:05:Cindy Mackay RN) Discharged To: Home (09/25/2016 13:05:Cindy Mackay RN) Discharge Provider Name: Alfonzo LOWE CNM (09/25/2016 13:05:Cindy Mackay RN) Accompanied By: LENNY (09/25/2016 13:05:Cindy Mackay RN) Discharge Method: Ambulatory (09/25/2016 13:05:Cindy Mackay RN) Condition: Stable (09/25/2016 13:05:Cindy Mackay RN) Follow Up With: [facility] (09/25/2016 13:05:Cindy Mackay RN) Follow Up On: As Scheduled (09/25/2016 13:05:Cindy Mackay RN) Follow Up Phone Number: [facility] - (09/25/2016 13:05:Cindy Mackay RN)
--- NOTE | 2016-09-27 22:48 | L&D General Admission ---
General Admit Datetime Report Generated by CPN: 09/27/2016 22:45 INFORMATION Patient Age: 20 (08/13/2016 12:28:QS system process) EDC: 11/17/2016 00:00 (08/13/2016 12:43:Sydnee Eller RN) : 1 (08/13/2016 12:43:Sydnee Eller RN) Para: 0 (08/13/2016 17:32:Sydnee Eller RN) Para: 0 (08/13/2016 12:43:Sydnee Eller RN) Term: 0 (08/13/2016 12:43:Sydnee Eller RN) : 0 (08/13/2016 12:43:Sydnee Eller RN) Spontaneous Abortions: 0 (08/13/2016 12:43:Sydnee Eller RN) Induced Abortions: 0 (08/13/2016 12:43:Sydnee Eller RN) Livin (08/13/2016 12:43:Sydnee Eller RN) Cesareans: 0 (08/13/2016 12:43:Sydnee Eller RN) VBACs: 0 (08/13/2016 12:43:Sydnee Eller RN) Ectopic: 0 (08/13/2016 12:43:Sydnee Eller RN) Multiple Births: 0 (08/13/2016 12:43:Sydnee Eller RN) Baby, Number in Womb: 1 (08/13/2016 17:32:Sydnee Eller RN) Baby, Number in Womb: 1 (08/13/2016 12:43:Sydnee Eller RN) CARE Primary Voice Writing Reporter: [facility] (08/13/2016 12:43:Sydnee Eller RN) Prepregnancy Weight (lb): 138 (Annotations: Data stored by CPN on behalf of user) (08/13/2016 12:43:Sydnee Eller RN) Prepregnancy Weight (kg): 62.7 (08/13/2016 12:43:QS system process) Height (in): 64 (09/25/2016 11:58:QS system process) Height (in): 64 (09/22/2016 12:44:QS system process) Height (in): 64 (08/13/2016 12:57:QS system process) ALLERGIES Medication Allergy: No (08/13/2016 12:43:Sydnee Eller RN) Medication Allergies: No Known Allergies (08/13/2016) (08/13/2016 12:56:QS system process) Latex Allergy: No Latex Allergies (08/13/2016 12:43:Sydnee Eller RN) Food Allergies: n/a (08/13/2016 12:43:Sydnee Eller RN) Environmental Allergies: n/a (08/13/2016 12:43:Sydnee Eller RN) COMMUNICATION Primary Language: Ivorian (08/13/2016 12:43:Sydnee Eller RN) Medical Tx Preferred Language: Ivorian (08/13/2016 12:43:Sydnee Eller RN) Communication Barrier(s): None (08/13/2016 12:43:Sydnee Eller RN) DEMOGRAPHICS Address: [address] [place] [id number] (08/13/2016 12:28:QS system process) Zipcode: [address] (08/13/2016 12:28:QS system process) Home (08/13/2016 12:28:QS system process) SSN: [id number] (08/13/2016 12:28:QS system process) Next of Kin Name: REYES STEVE (08/13/2016 12:28:QS system process) Next of Kin (08/13/2016 12:28:QS system process) Next of Kin Relationship: SPO (08/13/2016 12:28:QS system process) Date of : 1995 (08/13/2016 12:28:QS system process) Marital Status: (08/13/2016 12:28:QS system process) Sex: Female (08/13/2016 12:28:QS system process) Race: (08/13/2016 12:28:QS system process) Ethnicity: Non- or (08/13/2016 12:28:QS system process) Restorationism: None (08/13/2016 12:28:QS system process) DRUG AND ALCOHOL USE Alcohol: No (08/13/2016 12:43:Sydnee Eller RN) Cigarettes: Never Smoker. [id number] (08/13/2016 12:43:Sydnee Eller RN) Marijuana: No (08/13/2016 12:43:Sydnee Eller RN) Cocaine: No (08/13/2016 12:43:Sydnee Eller RN) Other Illicit Drugs: No (08/13/2016 12:43:Sydnee Eller RN) VACCINE HISTORY Influenza Vaccine: Yes (08/13/2016 12:43:Sydnee Eller RN) Influenza Date: 01/2016 (08/13/2016 12:43:Sydnee Eller RN) Pneumococcal Vaccine: No (08/13/2016 12:43:Sydnee Eller RN) Tetanus Vaccine: Uncertain (08/13/2016 12:43:Sydnee Eller RN) Tdap Vaccine: Uncertain (08/13/2016 12:43:Sydnee Eller RN) Hepatitis B Vaccine: Uncertain (08/13/2016 12:43:Sydnee Eller RN) Feeding Preference: Breast (08/13/2016 12:43:Sydnee Eller RN) Circumcision: N/A (08/13/2016 12:43:Rose Bacon RN) Classes Attended: Yes (08/13/2016 12:43:Rose Bacon RN) Tubal Ligation: No (08/13/2016 12:43:Rose Bacon RN) Tubal Authorization Signed: N/A (08/13/2016 12:43:Rose Bacon RN) Consent: N/A (08/13/2016 12:43:Rose Bacon RN) Consent Signed: N/A (08/13/2016 12:43:Rose Bacon RN) Pain Management Plans: Spinal (08/13/2016 12:43:Rose Bacon RN) Other Pain Management Plans: scheduled for csection (08/13/2016 12:43:Rose Bacon RN) Plans for Labor and Delivery: None (08/13/2016 12:43:Rose Bacon RN) Support Person: reyes (08/13/2016 12:43:Rose Bacon RN) Support Person Relationship: (08/13/2016 12:43:Rose Bacon RN) Cultural/Spritual Practice: No (08/13/2016 12:43:Rose Bacon RN) Spir/Cult Dietary Needs: No (08/13/2016 12:43:Rose Bacon RN) LIVING SITUATION/DISCHARGE PLAN Living Arrangements: House (08/13/2016 12:43:Rose Bacon RN) Adequate Access to:: Electric; Heat; Refrigeration; Plumbing/Running water; Phone; Transportation (08/13/2016 12:43:Rose Bacon RN) WIC Program: Needs referral (08/13/2016 12:43:Rose Bacon RN) Discharge Mold Stacker Person: reyes (08/13/2016 12:43:Rose Bacon RN) Person to Help after Discharge: reyes (08/13/2016 12:43:Rose Bacon RN) Currently Using Commun Resources: No (08/13/2016 12:43:Rose Bacon RN) Outside Agency/Scale Technician: No (08/13/2016 12:43:Rose Bacon RN) Car Seat for Discharge: Yes (08/13/2016 12:43:Rose Bacon RN) Adoption Requested: No (08/13/2016 12:43:Rose Bacon RN) Pt Contact w/ Post : N/A (08/13/2016 12:43:Rose Bacon RN) LABS Blood Type: O Positive (08/13/2016 12:43:Rose Bacon RN) Group Beta Strep: postive (08/13/2016 13:35:Aisha Encinas RN) Gonorrhea: Negative (08/13/2016 12:43:Aisha Encinas RN) Chlamydia: Negative (08/13/2016 12:43:Aisha Encinas RN) RPR/VDRL: Nonreactive (Annotations: Data stored by Patti on behalf of user) (08/13/2016 12:43:Rose Bacon RN) HIV Results: negative (08/13/2016 12:43:Rose Bacon RN) Hepatitis B: Negative (08/13/2016 12:43:Rose Bacon RN) Rubella: Immune (08/13/2016 12:43:Rose Bacon RN) OB/PREVIOUS HISTORY Current Procedures: Ultrasound (08/13/2016 12:43:Sydnee Eller RN) History of Previous : No (08/13/2016 12:43:Sydnee Eller RN) History of Gestational Diabetes: No (08/13/2016 12:43:Sydnee Eller RN) History of PIH: No (08/13/2016 12:43:Sydnee Eller RN) History of Incompetent Cervix: No (08/13/2016 12:43:Sydnee Eller RN) History of Placenta Previa/Abrup: No (08/13/2016 12:43:Sydnee Eller RN) History of Macrosomia: No (08/13/2016 12:43:Sydnee Eller RN) History of IUGR: No (08/13/2016 12:43:Sydnee Eller RN) History of Hemorrhage: No (08/13/2016 12:43:Sydnee Eller RN) History of Loss/Stillborn: No (08/13/2016 12:43:Sydnee Eller RN) History of : No (08/13/2016 12:43:Sydnee Eller RN) History of D (Rh) Sensitization: No (08/13/2016 12:43:Sydnee Eller RN) History Recurrent Loss/Stillborn: No (08/13/2016 12:43:Sydnee Eller RN) History Depression/PP Depression: No (08/13/2016 12:43:Sydnee Eller RN) History of Uterine Anomaly/ROSIO: No (08/13/2016 12:43:Sydnee Eller RN) History of Infertility: No (08/13/2016 12:43:Sydnee Eller RN) History of ART Treatment: No (08/13/2016 12:43:Sydnee Eller RN) History of ROSIO: No (08/13/2016 12:43:Sydnee Eller RN) Comments Obstetrical History: G1 current will have to deliver at [place] 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), GDM diet controlled (08/13/2016 12:43:Rose Bacon RN) MEDICAL HISTORY Med Hx Diabetes: Yes (08/13/2016 12:43:Rose Bacon RN) Diabetes Type: Gestational Diabetes (08/13/2016 12:43:Rose Bacon RN) Med Hx Hypertension: No (08/13/2016 12:43:Sydnee Eller RN) Med Hx Heart Disease: No (08/13/2016 12:43:Sydnee Eller RN) Med Hx Autoimmune Disorder: No (08/13/2016 12:43:Sydnee Eller RN) Med Hx Kidney Disease/UTI: No (08/13/2016 12:43:Sydnee Eller RN) Med Hx Neurologic/Epilepsy: No (08/13/2016 12:43:Sydnee Eller RN) Med Hx Psychiatric Disorders: No (08/13/2016 12:43:Sydnee Eller RN) Med Hx Hepatitis/Liver Disease: No (08/13/2016 12:43:Sydnee Eller RN) Med Hx Varicosities/Phlebitis: No (08/13/2016 12:43:Sydnee Eller RN) Med Hx Thyroid Dysfunction: No (08/13/2016 12:43:Sydnee Eller RN) Med Hx Trauma/Violence: No (08/13/2016 12:43:Sydnee Eller RN) Med Hx Blood Transfusion: No (08/13/2016 12:43:Sydnee Eller RN) Med Hx Pulmonary (Asthma,TB): No (08/13/2016 12:43:Sydnee Eller RN) Med Hx Breast: No (08/13/2016 12:43:Sydnee Eller RN) Med Hx EDUCATIONAL THERAPY TEACHER Surgery: No (08/13/2016 12:43:Sydnee Eller RN) Med Hx Hospitalization/Surgery: No (08/13/2016 12:43:Sydnee Eller RN) Med Hx Anesthetic Complications: No (08/13/2016 12:43:Sydnee Eller RN) Med Hx Abnormal Pap Smear: No (08/13/2016 12:43:Sydnee Eller RN) Other Medical Diseases: No (08/13/2016 12:43:Sydnee Eller RN) Med Hx Significant Family Hx: No (08/13/2016 12:43:Sydnee Eller RN) 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 (08/13/2016 12:43:Rose Bacon RN) INFECTIOUS HISTORY Inf Hx Gonorrhea: No (08/13/2016 12:43:Sydnee Eller RN) Inf Hx Chlamydia: No (08/13/2016 12:43:Sydnee Eller RN) Inf Hx Syphilis: No (08/13/2016 12:43:Sydnee Eller RN) Inf Hx HIV/AIDS: No (08/13/2016 12:43:Sydnee Eller RN) Inf Hx Human Papilloma Virus: No (08/13/2016 12:43:Sydnee Eller RN) Inf Hx Pt/Partner Genital Herpes: No (08/13/2016 12:43:Sydnee Eller RN) Inf Hx Tuberculosis/Exposure: No (08/13/2016 12:43:Sydnee Eller RN) Inf Hx Hepatitis B,C: No (08/13/2016 12:43:Sydnee Eller RN) Inf Hx Rash or Viral Illness: No (08/13/2016 12:43:Sydnee Eller RN) GENETIC HISTORY Gen Hx Age >=35 at HAO: No (08/13/2016 12:43:Sydnee Eller RN) Gen Hx Thalassemia: Yes (08/13/2016 12:43:Rose Bacon RN) Gen Hx Congenital Heart Defect: No (08/13/2016 12:43:Sydnee Eller RN) Gen Hx Neural Tube Defect: Yes (08/13/2016 12:43:Sydnee Eller RN) Gen Hx Down's Syndrome: No (08/13/2016 12:43:Sydnee Eller RN) Gen Hx Marcial-Sachs: No (08/13/2016 12:43:Sydnee Eller RN) Gen Hx Abbey: No (08/13/2016 12:43:Sydnee Eller RN) Gen Hx Familial Dysautonomia: No (08/13/2016 12:43:Sydnee Eller RN) Gen Hx Sickle Cell Disease/Trait: No (08/13/2016 12:43:Sydnee Eller RN) Gen Hx Hemophilia/Blood Disorder: No (08/13/2016 12:43:Rose Bacon RN) Gen Hx Muscular Dystrophy: No (08/13/2016 12:43:Sydnee Eller RN) Gen Hx Cystic Fibrosis: No (08/13/2016 12:43:Sydnee Eller RN) Gen Hx Huntingtons Chorea: No (08/13/2016 12:43:Sydnee Eller RN) Gen Hx Mental Retardation/Autism: No (08/13/2016 12:43:Sydnee Eller RN) Gen Hx Tested for Fragile X: No (08/13/2016 12:43:Sydnee Eller RN) Gen Hx Other Inher/Chromosomal: No (08/13/2016 12:43:Sydnee Eller RN) Gen Hx Maternal Metabolic DO: No (08/13/2016 12:43:Sydnee Eller RN) Gen Hx Pt Father or FOB Defect: No (08/13/2016 12:43:Sydnee Eller RN) Gen Hx Other Genetic History: No (08/13/2016 12:43:Sydnee Eller RN) Gen Hx Drugs/Meds since LMP: No (08/13/2016 12:43:Sydnee Eller RN) Gen Hx Medications: vitamins (08/13/2016 12:43:Rose Bacon RN) Details of Genetic History: mother is carrier of SMA, baby has spina bifida, beta thal minor fob has normal electrophoresis (08/13/2016 12:43:Rose Bacon RN)
--- NOTE | 2016-09-27 22:48 | L&D Discharge Summary ---
OB Discharge Summary Datetime Report Generated by CPN: 09/27/2016 22:45 DISCHARGE DIAGNOSIS Diagnosis/Symptoms: Reassuring Surveillance - Annotate Details; Other Diagnoses/Symptoms Other: REACTIVE NST- GDM Treatment/Procedures Other: cervical length Gestation: 32.3 Number of Babies in Womb: 1 Parity: 0 DIET/ACTIVITY/RESTRICTIONS Diet: Regular Activity: Normal Activity TEACHING/INSTRUCTIONS/REFERRALS Instructions Given To: patient Instructions Understood: Patient Verbalized Understanding; Support Person Verbalized Understanding Referrals: None Educational Materials- Other: REVIEWED KICK COUNTS CARE NOTES RECEIVED @ PRIOR VISIT- PT HAD NO QUESTIONS. DISCHARGE INFORMATION Discharged AMA: No Discharge Date/Time: 09/25/2016 13:05 Discharged To: Home Discharge Provider Name: Alfonzo LOWE CNDestiny Accompanied By: FOB Discharge Method: Ambulatory Condition: Stable FOLLOW UP INFORMATION Follow Up With: [facility] Follow Up On: As Scheduled Follow Up Phone Number: [facility] - Comments: patient has appt scheduled with sousa
--- NOTE | 2016-09-27 22:48 | L&D Current Admission ---
Current Admit Datetime Report Generated by CPN: 09/27/2016 22:45 ADMISSION INFORMATION Chief Complaint: Contractions; Pain on Urination; Nausea; Other (Annotations: diarrhea frequently ) (09/03/2016 20:15:Rose Bacon RN) Chief Complaint: Uterine Cramping; Other (08/13/2016 13:02:Sydnee Eller RN)
--- NOTE | 2016-09-28 04:47 | L&D General Admission ---
General Admit Datetime Report Generated by CPN: 09/28/2016 04:46 CARE Height (in): 64 (09/25/2016 11:58:QS system process) Height (in): 64 (09/22/2016 12:44:QS system process)
--- NOTE | 2016-09-28 04:47 | Antepartum Discharge Summary ---
Antepartum DC Datetime Report Generated by CPN: 09/28/2016 04:46 Diet: Regular (09/25/2016 13:05:Cindy Mackay RN) Activity: Normal Activity (09/25/2016 13:05:Cindy Mackay RN) Instructions Understood: Patient Verbalized Understanding; Support Person Verbalized Understanding (09/25/2016 13:05:Cindy Mackay RN) Referrals: None (09/25/2016 13:05:Cindy Mackay RN) Educational Materials- Other: REVIEWED KICK COUNTS CARE NOTES RECEIVED @ PRIOR VISIT- PT HAD NO QUESTIONS. (09/25/2016 13:05:Cindy Mackay RN) Discharged AMA: No (09/25/2016 13:05:Cindy Mackay RN) Discharge Date/Time: 09/25/2016 13:05 (09/25/2016 13:05:Cindy Mackay RN) Discharged To: Home (09/25/2016 13:05:Cindy Mackay RN) Discharge Provider Name: Alfonzo LOWE CNM (09/25/2016 13:05:Cindy Mackay RN) Accompanied By: LENNY (09/25/2016 13:05:Cindy Mackay RN) Discharge Method: Ambulatory (09/25/2016 13:05:Cindy Mackay RN) Condition: Stable (09/25/2016 13:05:Cindy Mackay RN) Follow Up With: [facility] (09/25/2016 13:05:Cindy Mackay RN) Follow Up On: As Scheduled (09/25/2016 13:05:Cindy Mackay RN) Follow Up Phone Number: [facility] - (09/25/2016 13:05:Cindy Mackay RN)
--- NOTE | 2016-09-28 04:47 | L&D Discharge Summary ---
OB Discharge Summary Datetime Report Generated by CPN: 09/28/2016 04:46 DISCHARGE DIAGNOSIS Diagnosis/Symptoms: Reassuring Surveillance - Annotate Details; Other Diagnoses/Symptoms Other: REACTIVE NST- GDM Treatment/Procedures Other: cervical length Gestation: 32.3 Number of Babies in Womb: 1 Parity: 0 DIET/ACTIVITY/RESTRICTIONS Diet: Regular Activity: Normal Activity TEACHING/INSTRUCTIONS/REFERRALS Instructions Given To: patient Instructions Understood: Patient Verbalized Understanding; Support Person Verbalized Understanding Referrals: None Educational Materials- Other: REVIEWED KICK COUNTS CARE NOTES RECEIVED @ PRIOR VISIT- PT HAD NO QUESTIONS. DISCHARGE INFORMATION Discharged AMA: No Discharge Date/Time: 09/25/2016 13:05 Discharged To: Home Discharge Provider Name: Alfonzo LOWE CNDestiny Accompanied By: FOB Discharge Method: Ambulatory Condition: Stable FOLLOW UP INFORMATION Follow Up With: [facility] Follow Up On: As Scheduled Follow Up Phone Number: [facility] - Comments: patient has appt scheduled with sousa
--- NOTE | 2016-09-28 10:47 | L&D Discharge Summary ---
OB Discharge Summary Datetime Report Generated by CPN: 09/28/2016 10:45 DISCHARGE DIAGNOSIS Diagnosis/Symptoms: Reassuring Surveillance - Annotate Details; Other Diagnoses/Symptoms Other: REACTIVE NST- GDM Treatment/Procedures Other: cervical length Gestation: 32.3 Number of Babies in Womb: 1 Parity: 0 DIET/ACTIVITY/RESTRICTIONS Diet: Regular Activity: Normal Activity TEACHING/INSTRUCTIONS/REFERRALS Instructions Given To: patient Instructions Understood: Patient Verbalized Understanding; Support Person Verbalized Understanding Referrals: None Educational Materials- Other: REVIEWED KICK COUNTS CARE NOTES RECEIVED @ PRIOR VISIT- PT HAD NO QUESTIONS. DISCHARGE INFORMATION Discharged AMA: No Discharge Date/Time: 09/25/2016 13:05 Discharged To: Home Discharge Provider Name: Alfonzo LOWE CNDestiny Accompanied By: FOB Discharge Method: Ambulatory Condition: Stable FOLLOW UP INFORMATION Follow Up With: [facility] Follow Up On: As Scheduled Follow Up Phone Number: [facility] - Comments: patient has appt scheduled with sousa
--- NOTE | 2016-09-28 10:47 | L&D Current Admission ---
Current Admit Datetime Report Generated by CPN: 09/28/2016 10:45 ADMISSION INFORMATION Chief Complaint: Contractions; Pain on Urination; Nausea; Other (Annotations: diarrhea frequently ) (09/03/2016 20:15:Rose Bacon RN) Chief Complaint: Uterine Cramping; Other (08/13/2016 13:02:Sydnee Eller RN)
--- NOTE | 2016-09-28 10:47 | Antepartum Discharge Summary ---
Antepartum DC Datetime Report Generated by CPN: 09/28/2016 10:45 Diet: Regular (09/25/2016 13:05:Cindy Mackay RN) Activity: Normal Activity (09/25/2016 13:05:Cindy Mackay RN) Instructions Understood: Patient Verbalized Understanding; Support Person Verbalized Understanding (09/25/2016 13:05:Cindy Mackay RN) Referrals: None (09/25/2016 13:05:Cindy Mackay RN) Educational Materials- Other: REVIEWED KICK COUNTS CARE NOTES RECEIVED @ PRIOR VISIT- PT HAD NO QUESTIONS. (09/25/2016 13:05:Cindy Mackay RN) Discharged AMA: No (09/25/2016 13:05:Cindy Mackay RN) Discharge Date/Time: 09/25/2016 13:05 (09/25/2016 13:05:Cindy Mackay RN) Discharged To: Home (09/25/2016 13:05:Cindy Mackay RN) Discharge Provider Name: Alfonzo LOWE CNM (09/25/2016 13:05:Cindy Mackay RN) Accompanied By: LENNY (09/25/2016 13:05:Cindy Mackay RN) Discharge Method: Ambulatory (09/25/2016 13:05:Cindy Mackay RN) Condition: Stable (09/25/2016 13:05:Cindy Mackay RN) Follow Up With: [facility] (09/25/2016 13:05:Cindy Mackay RN) Follow Up On: As Scheduled (09/25/2016 13:05:Cindy Mackay RN) Follow Up Phone Number: [facility] - (09/25/2016 13:05:Cindy Mackay RN)
--- NOTE | 2016-09-28 10:47 | L&D General Admission ---
General Admit Datetime Report Generated by CPN: 09/28/2016 10:45 INFORMATION Patient Age: 20 (08/13/2016 12:28:QS system process) EDC: 11/17/2016 00:00 (08/13/2016 12:43:Sydnee Eller RN) : 1 (08/13/2016 12:43:Sydnee Eller RN) Para: 0 (08/13/2016 17:32:Sydnee Eller RN) Para: 0 (08/13/2016 12:43:Sydnee Eller RN) Term: 0 (08/13/2016 12:43:Sydnee Eller RN) : 0 (08/13/2016 12:43:Sydnee Eller RN) Spontaneous Abortions: 0 (08/13/2016 12:43:Sydnee Eller RN) Induced Abortions: 0 (08/13/2016 12:43:Sydnee Eller RN) Livin (08/13/2016 12:43:Sydnee Eller RN) Cesareans: 0 (08/13/2016 12:43:Sydnee Eller RN) VBACs: 0 (08/13/2016 12:43:Sydnee Eller RN) Ectopic: 0 (08/13/2016 12:43:Sydnee Eller RN) Multiple Births: 0 (08/13/2016 12:43:Sydnee Eller RN) Baby, Number in Womb: 1 (08/13/2016 17:32:Sydnee Eller RN) Baby, Number in Womb: 1 (08/13/2016 12:43:Sydnee Eller RN) CARE Primary 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 Shop Supervisor: [facility] (08/13/2016 12:43:Sydnee Eller RN) Prepregnancy Weight (lb): 138 (Annotations: Data stored by CPN on behalf of user) (08/13/2016 12:43:Sydnee Eller RN) Prepregnancy Weight (kg): 62.7 (08/13/2016 12:43:QS system process) Height (in): 64 (09/25/2016 11:58:QS system process) Height (in): 64 (09/22/2016 12:44:QS system process) Height (in): 64 (08/13/2016 12:57:QS system process) ALLERGIES Medication Allergy: No (08/13/2016 12:43:Sydnee Eller RN) Medication Allergies: No Known Allergies (08/13/2016) (08/13/2016 12:56:QS system process) Latex Allergy: No Latex Allergies (08/13/2016 12:43:Sydnee Eller RN) Food Allergies: n/a (08/13/2016 12:43:Sydnee Eller RN) Environmental Allergies: n/a (08/13/2016 12:43:Sydnee Eller RN) COMMUNICATION Primary Language: Latvian (08/13/2016 12:43:Sydnee Eller RN) Medical Tx Preferred Language: Latvian (08/13/2016 12:43:Sydnee Eller RN) Communication Barrier(s): None (08/13/2016 12:43:Sydnee Eller RN) DEMOGRAPHICS Address: [address] [place] [id number] (08/13/2016 12:28:QS system process) Zipcode: [id number] (08/13/2016 12:28:QS system process) Home (08/13/2016 12:28:QS system process) SSN: [id number] (08/13/2016 12:28:QS system process) Next of Kin Name: REYES STEVE (08/13/2016 12:28:QS system process) Next of Kin (08/13/2016 12:28:QS system process) Next of Kin Relationship: SPO (08/13/2016 12:28:QS system process) Date of : 1995 (08/13/2016 12:28:QS system process) Marital Status: (08/13/2016 12:28:QS system process) Sex: Female (08/13/2016 12:28:QS system process) Race: (08/13/2016 12:28:QS system process) Ethnicity: Non- or (08/13/2016 12:28:QS system process) Presybeterian: None (08/13/2016 12:28:QS system process) DRUG AND ALCOHOL USE Alcohol: No (08/13/2016 12:43:Sydnee Eller RN) Cigarettes: Never Smoker. [id number] (08/13/2016 12:43:Sydnee Eller RN) Marijuana: No (08/13/2016 12:43:Sydnee Eller RN) Cocaine: No (08/13/2016 12:43:Sydnee Eller RN) Other Illicit Drugs: No (08/13/2016 12:43:Sydnee Eller RN) VACCINE HISTORY Influenza Vaccine: Yes (08/13/2016 12:43:Sydnee Eller RN) Influenza Date: 01/2016 (08/13/2016 12:43:Sydnee Eller RN) Pneumococcal Vaccine: No (08/13/2016 12:43:Sydnee Eller RN) Tetanus Vaccine: Uncertain (08/13/2016 12:43:Sydnee Eller RN) Tdap Vaccine: Uncertain (08/13/2016 12:43:Sydnee Eller RN) Hepatitis B Vaccine: Uncertain (08/13/2016 12:43:Sydnee Eller RN) Feeding Preference: Breast (08/13/2016 12:43:Sydnee Eller RN) Circumcision: N/A (08/13/2016 12:43:Rose Bacon RN) Classes Attended: Yes (08/13/2016 12:43:Rose Bacon RN) Tubal Ligation: No (08/13/2016 12:43:Rose Bacon RN) Tubal Authorization Signed: N/A (08/13/2016 12:43:Rose Bacon RN) Consent: N/A (08/13/2016 12:43:Rose Bacon RN) Consent Signed: N/A (08/13/2016 12:43:Rose Bacon RN) Pain Management Plans: Spinal (08/13/2016 12:43:Rose Bacon RN) Other Pain Management Plans: scheduled for csection (08/13/2016 12:43:Rose Bacon RN) Plans for Labor and Delivery: None (08/13/2016 12:43:Rose Bacon RN) Support Person: reyes (08/13/2016 12:43:Rose Bacon RN) Support Person Relationship: (08/13/2016 12:43:Rose Bacon RN) Cultural/Spritual Practice: No (08/13/2016 12:43:Rose Bacon RN) Spir/Cult Dietary Needs: No (08/13/2016 12:43:Rose Bacon RN) LIVING SITUATION/DISCHARGE PLAN Living Arrangements: House (08/13/2016 12:43:Rose Bacon RN) Adequate Access to:: Electric; Heat; Refrigeration; Plumbing/Running water; Phone; Transportation (08/13/2016 12:43:Rose Bacon RN) WIC Program: Needs referral (08/13/2016 12:43:Rose Bacon RN) 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: reyes (08/13/2016 12:43:Rose Bacon RN) Person to Help after Discharge: reyes (08/13/2016 12:43:Rose Bacon RN) Currently Using Commun Resources: No (08/13/2016 12:43:Rose Bacon RN) Outside Agency/Business Transformation Manager: No (08/13/2016 12:43:Rose Bacon RN) Car Seat for Discharge: Yes (08/13/2016 12:43:Rose Bacon RN) Adoption Requested: No (08/13/2016 12:43:Rose Bacon RN) Pt Contact w/ Post : N/A (08/13/2016 12:43:Rose Bacon RN) LABS Blood Type: O Positive (08/13/2016 12:43:Rose Bacon RN) Group Beta Strep: postive (08/13/2016 13:35:Aisha Encinas RN) Gonorrhea: Negative (08/13/2016 12:43:Aisha Encinas RN) Chlamydia: Negative (08/13/2016 12:43:Aisha Encinas RN) RPR/VDRL: Nonreactive (Annotations: Data stored by Patti on behalf of user) (08/13/2016 12:43:Rose Bacon RN) HIV Results: negative (08/13/2016 12:43:Rose Bacon RN) Hepatitis B: Negative (08/13/2016 12:43:Rose Bacon RN) Rubella: Immune (08/13/2016 12:43:Rose Bacon RN) OB/PREVIOUS HISTORY Current Procedures: Ultrasound (08/13/2016 12:43:Sydnee Eller RN) History of Previous : No (08/13/2016 12:43:Sydnee Eller RN) History of Gestational Diabetes: No (08/13/2016 12:43:Sydnee Eller RN) History of PIH: No (08/13/2016 12:43:Sydnee Eller RN) History of Incompetent Cervix: No (08/13/2016 12:43:Sydnee Eller RN) History of Placenta Previa/Abrup: No (08/13/2016 12:43:Sydnee Eller RN) History of Macrosomia: No (08/13/2016 12:43:Sydnee Eller RN) History of IUGR: No (08/13/2016 12:43:Sydnee Eller RN) History of Hemorrhage: No (08/13/2016 12:43:Sydnee Eller RN) History of Loss/Stillborn: No (08/13/2016 12:43:Sydnee Eller RN) History of : No (08/13/2016 12:43:Sydnee Eller RN) History of D (Rh) Sensitization: No (08/13/2016 12:43:Sydnee Eller RN) History Recurrent Loss/Stillborn: No (08/13/2016 12:43:Sydnee Eller RN) History Depression/PP Depression: No (08/13/2016 12:43:Sydnee Eller RN) History of Uterine Anomaly/ROSIO: No (08/13/2016 12:43:Sydnee Eller RN) History of Infertility: No (08/13/2016 12:43:Sydnee Eller RN) History of ART Treatment: No (08/13/2016 12:43:Sydnee Eller RN) History of ROSIO: No (08/13/2016 12:43:Sydnee Eller RN) Comments Obstetrical History: G1 current will have to deliver at [place] [place] 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), GDM diet controlled (08/13/2016 12:43:Rose Bacon RN) MEDICAL HISTORY Med Hx Diabetes: Yes (08/13/2016 12:43:Rose Bacon RN) Diabetes Type: Gestational Diabetes (08/13/2016 12:43:Rose Bacon RN) Med Hx Hypertension: No (08/13/2016 12:43:Sydnee Eller RN) Med Hx Heart Disease: No (08/13/2016 12:43:Sydnee Eller RN) Med Hx Autoimmune Disorder: No (08/13/2016 12:43:Sydnee Eller RN) Med Hx Kidney Disease/UTI: No (08/13/2016 12:43:Sydnee Eller RN) Med Hx Neurologic/Epilepsy: No (08/13/2016 12:43:Sydnee Eller RN) Med Hx Psychiatric Disorders: No (08/13/2016 12:43:Sydnee Eller RN) Med Hx Hepatitis/Liver Disease: No (08/13/2016 12:43:Sydnee Eller RN) Med Hx Varicosities/Phlebitis: No (08/13/2016 12:43:Sydnee Eller RN) Med Hx Thyroid Dysfunction: No (08/13/2016 12:43:Sydnee Eller RN) Med Hx Trauma/Violence: No (08/13/2016 12:43:Sydnee Eller RN) Med Hx Blood Transfusion: No (08/13/2016 12:43:Sydnee Eller RN) Med Hx Pulmonary (Asthma,TB): No (08/13/2016 12:43:Sydnee Eller RN) Med Hx Breast: No (08/13/2016 12:43:Sydnee Eller RN) Med Hx 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 Surgery: No (08/13/2016 12:43:ySdnee Eller RN) Med Hx Hospitalization/Surgery: No (08/13/2016 12:43:Sydnee Eller RN) Med Hx Anesthetic Complications: No (08/13/2016 12:43:Sydnee Eller RN) Med Hx Abnormal Pap Smear: No (08/13/2016 12:43:Sydnee Eller RN) Other Medical Diseases: No (08/13/2016 12:43:Sydnee Eller RN) Med Hx Significant Family Hx: No (08/13/2016 12:43:Sydnee Eller RN) 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 (08/13/2016 12:43:Rose Bacon RN) INFECTIOUS HISTORY Inf Hx Gonorrhea: No (08/13/2016 12:43:Sydnee Eller RN) Inf Hx Chlamydia: No (08/13/2016 12:43:Sydnee Eller RN) Inf Hx Syphilis: No (08/13/2016 12:43:Sydnee Eller RN) Inf Hx HIV/AIDS: No (08/13/2016 12:43:Sydnee Eller RN) Inf Hx Human Papilloma Virus: No (08/13/2016 12:43:Sydnee Eller RN) Inf Hx Pt/Partner Genital Herpes: No (08/13/2016 12:43:Sydnee Eller RN) Inf Hx Tuberculosis/Exposure: No (08/13/2016 12:43:Sydnee Eller RN) Inf Hx Hepatitis B,C: No (08/13/2016 12:43:Sydnee Eller RN) Inf Hx Rash or Viral Illness: No (08/13/2016 12:43:Sydnee Eller RN) GENETIC HISTORY Gen Hx Age >=35 at HAO: No (08/13/2016 12:43:Sydnee Eller RN) Gen Hx Thalassemia: Yes (08/13/2016 12:43:Rose Bacon RN) Gen Hx Congenital Heart Defect: No (08/13/2016 12:43:Sydnee Eller RN) Gen Hx Neural Tube Defect: Yes (08/13/2016 12:43:Sydnee Eller RN) Gen Hx Down's Syndrome: No (08/13/2016 12:43:Sydnee Eller RN) Gen Hx Marcial-Sachs: No (08/13/2016 12:43:Sydnee Eller RN) Gen Hx Abbey: No (08/13/2016 12:43:Sydnee Eller RN) Gen Hx Familial Dysautonomia: No (08/13/2016 12:43:Sydnee Eller RN) Gen Hx Sickle Cell Disease/Trait: No (08/13/2016 12:43:Sydnee Eller RN) Gen Hx Hemophilia/Blood Disorder: No (08/13/2016 12:43:Rose Bacon RN) Gen Hx Muscular Dystrophy: No (08/13/2016 12:43:Sydnee Eller RN) Gen Hx Cystic Fibrosis: No (08/13/2016 12:43:Sydnee Eller RN) Gen Hx Huntingtons Chorea: No (08/13/2016 12:43:Sydnee Eller RN) Gen Hx Mental Retardation/Autism: No (08/13/2016 12:43:Sydnee Eller RN) Gen Hx Tested for Fragile X: No (08/13/2016 12:43:Sydnee Eller RN) Gen Hx Other Inher/Chromosomal: No (08/13/2016 12:43:Sydnee Eller RN) Gen Hx Maternal Metabolic DO: No (08/13/2016 12:43:Sydnee Eller RN) Gen Hx Pt Father or FOB Defect: No (08/13/2016 12:43:Sydnee Eller RN) Gen Hx Other Genetic History: No (08/13/2016 12:43:Sydnee Eller RN) Gen Hx Drugs/Meds since LMP: No (08/13/2016 12:43:Sydnee Eller RN) Gen Hx Medications: vitamins (08/13/2016 12:43:Rose Bacon RN) Details of Genetic History: mother is carrier of SMA, baby has spina bifida, beta thal minor fob has normal electrophoresis (08/13/2016 12:43:Rose Bacon RN)
== END 2016-09-25 13:05 | disposition home or self-care (01) ==
LOC: LC 11:48
PROVIDERS: ATTEND Obstetrics & Gynecology
PROC: 4A1HXCZ Monitoring of Products of Conception, Cardiac Rate, External Approach (ICD-10-PCS; principal; 2016-09-25)
DX: O24.419 Gestational diabetes mellitus in pregnancy, unspecified control (principal); Z3A.32 32 weeks gestation of pregnancy
CPT/HCPCS: 59025; 80307; 81001

== ENCOUNTER 2016-09-28 19:32 | Outpatient (CLI) | payer OTHER ==
--- NOTE | 2016-09-28 20:00 | L&D Flow Sheet ---
LD Flowsheet Datetime Report Generated by CPN: 09/28/2016 20:00 Datetime: 09/28/2016 19:49 NBP Sys/Nikki/Mean (mmHg): 119 (QS system process) : 71 (QS system process) : 88 (QS system process) Pulse: 85 (QS system process) LaborFlag: Labor (QS system process) Datetime: 09/28/2016 19:44 Frequency (min): per patient every 2 minutes (Aisha Encinas, RN) Pain Scale: 4 (Aisha Encinas, RN) Pain Presence: Intermittent (Aisha Encinas RN) Pain Type: Contraction (Aisha Encinas RN) Pain Location: Abdomen; Back (Aisha Encinas RN) Pain Goal: 1 (Aisha Encinas RN) Vaginal Bleeding: None (Aisha Encinas RN) Level of Consciousness: Fully Conscious (iAsha Encinas RN) DTR's/Clonus: DTRs 1+; No Clonus (Aisha Encinas RN) Headache: Denies (Aisha Encinas RN) Breath Sounds, Left: Clear and Equal (Aisha Encinas RN) Breath Sounds, Right: Clear and Equal (Aisha Encinas RN) Nausea/Vomiting: Present (Annotations: currently nauseated, 2 episodes of emesis today) (Aisha Encinas RN) RUQ Epigastric Pain: Denies (Aisha Encinas RN) LaborFlag: Labor (QS system process)
--- NOTE | 2016-09-28 20:00 | L&D Flow Sheet ---
LD Flowsheet Datetime Report Generated by CPN: 09/28/2016 20:00 Datetime: 09/28/2016 19:49 NBP Sys/Nikki/Mean (mmHg): 119 (QS system process) : 71 (QS system process) : 88 (QS system process) Pulse: 85 (QS system process) LaborFlag: Labor (QS system process) Datetime: 09/28/2016 19:44 Frequency (min): per patient every 2 minutes (Aisha Encinas, RN) Pain Scale: 4 (Aisha Encinas, RN) Pain Presence: Intermittent (Aisha Encinas RN) Pain Type: Contraction (Aisha Encinas RN) Pain Location: Abdomen; Back (Aisha Encinas RN) Pain Goal: 1 (Aisha Encinas RN) Vaginal Bleeding: None (Aisha Encinas RN) Level of Consciousness: Fully Conscious (Aisha Encinas RN) DTR's/Clonus: DTRs 1+; No Clonus (Aisha Encinas RN) Headache: Denies (Aisha Encinas RN) Breath Sounds, Left: Clear and Equal (Aisha Encinas RN) Breath Sounds, Right: Clear and Equal (Aisha Encinas RN) Nausea/Vomiting: Present (Annotations: currently nauseated, 2 episodes of emesis today) (Aisha Encinas RN) RUQ Epigastric Pain: Denies (Aisha Encinas RN) LaborFlag: Labor (QS system process)
[2016-09-28 20:03] LABS: APPEARANCE,URINE SLIGHTLY-CLOUDY; BILIRUBIN,URINE NEGATIVE (NEGATIVE); CALCIUM OXALATE CRYSTALS,URINE MODERATE /HPF; GLUCOSE, URINE NEGATIVE (NEGATIVE); KETONES,URINE TRACE mg/dL (NEGATIVE); LEUKOCYTE ESTERASE,URINE TRACE (NEGATIVE); NITRITE,URINE NEGATIVE (NEGATIVE); PROTEIN,URINE 30 mg/dL (NEGATIVE); URINE SPECIFIC GRAVITY 1.017; UROBILINOGEN,URINE NEGATIVE mg/dL (<2.0)
[2016-09-28 20:13] LABS: URINE BARBITURATES SCREEN NEGATIVE; URINE METHADONE SCREEN NEGATIVE; URINE OPIATES LOW NEGATIVE; URINE PHENCYCLIDINE SCREEN NEGATIVE
[2016-09-28] MEDS ORDERED: HYDROXYZINE PAMOATE 50 MG CAPSULE PO ONE (20:38)
[2016-09-28] MEDS ORDERED: HYDROXYZINE PAMOATE 50 MG CAPSULE ONE (20:45)
== END 2016-09-28 20:55 | disposition home or self-care (01) ==
LOC: LC 19:32
PROVIDERS: ATTEND Obstetrics & Gynecology
PROC: 4A1HXCZ Monitoring of Products of Conception, Cardiac Rate, External Approach (ICD-10-PCS; principal; 2016-09-28)
DX: O47.03 False labor before 37 completed weeks of gestation, third trimester (principal); Z3A.32 32 weeks gestation of pregnancy
CPT/HCPCS: 59025; 80307; 81001

== ENCOUNTER 2016-10-02 14:17 | Outpatient (CLI) | payer OTHER ==
--- NOTE | 2016-10-02 15:37 | Non Stress Test Report ---
Non Stress Test Datetime Report Generated by CPN: 10/02/2016 15:36 DEMOGRAPHIC EGA NST: 33.3 EGA NST: 32.6 INDICATION Indication for Study: Ordered by Provider Indication for Study: Ordered by Provider VITAL SIGNS Temperature - NST: 98.3 Pulse - NST: 95 RESP - NST: 20 NBPSYS NST: 117 NBPDIA NST: 57 MONITORING Monitor Explained: Monitor Explained; Test Explained; Patient Verbalized Understanding Monitor Explained: Monitor Explained; Test Explained; Patient Verbalized Understanding Time on Monitor: 10/02/2016 14:28 Time on Monitor: 09/28/2016 19:48 Time off Monitor: 10/02/2016 14:53 Time off Monitor: 09/28/2016 20:40 NST Duration: 25 NST Duration: 52 NST INTERVENTIONS NST Interventions: PO Hydration; Reposition Patient NST Interventions: PO Hydration Physician Notified NST: Rj Navarro CNM Physician Notified NST: Farrell BABY A: [id number] BABY A Movement : Present Movement : Present Contraction Frequency : irregular Contraction Frequency : 1-9 FHR Baseline : 140 Accelerations : 15X15 Accelerations : 15X15 Decelerations : None Decelerations : None Variability : Moderate 6-25bpm Variability : Moderate 6-25bpm NST Review: Meets Criteria for Reactive NST NST Review: Meets Criteria for Reactive NST NST Review and Verified By : Malissa Goff [facility] NST Results: Reactive NST Results: Reactive NST REPORT Report Trigger: Send Report
== END 2016-10-02 15:00 | disposition home or self-care (01) ==
LOC: LC 14:17
PROVIDERS: ATTEND Obstetrics & Gynecology
PROC: 4A1HXCZ Monitoring of Products of Conception, Cardiac Rate, External Approach (ICD-10-PCS; principal; 2016-10-02)
DX: O24.419 Gestational diabetes mellitus in pregnancy, unspecified control (principal); Z3A.33 33 weeks gestation of pregnancy
CPT/HCPCS: 59025

== ENCOUNTER 2016-10-07 00:17 | Observation (INO) | payer OTHER ==
[2016-10-07 00:49] LABS: APPEARANCE,URINE CLEAR; BILIRUBIN,URINE NEGATIVE (NEGATIVE); GLUCOSE, URINE NEGATIVE (NEGATIVE); KETONES,URINE NEGATIVE (NEGATIVE); LEUKOCYTE ESTERASE,URINE NEGATIVE (NEGATIVE); NITRITE,URINE NEGATIVE (NEGATIVE); PROTEIN,URINE NEGATIVE (NEGATIVE); UROBILINOGEN,URINE NEGATIVE mg/dL (<2.0)
[2016-10-07 01:10] LABS: URINE BARBITURATES SCREEN NEGATIVE; URINE METHADONE SCREEN NEGATIVE; URINE OPIATES LOW NEGATIVE; URINE PHENCYCLIDINE SCREEN NEGATIVE
[2016-10-07] MEDS ORDERED: ONDANSETRON HCL INJ/PF 4 MG/2 ML SDV ONE ×2 (01:36→11:54)
[2016-10-07] MEDS ORDERED: RINGERS SOLUTION,LACTATED 1,000 ML IV ONE (01:45)
[2016-10-07] MEDS ORDERED: ONDANSETRON HCL INJ/PF 4 MG/2 ML SDV IV ONE (01:45)
[2016-10-07] MEDS ORDERED: TERBUTALINE SULFATE INJ/PF 1 MG/1 ML SDV ONE (02:20)
[2016-10-07] MEDS ORDERED: TERBUTALINE SULFATE INJ/PF 1 MG/1 ML SDV SUBCUT ONE (02:30)
[2016-10-07] MEDS ORDERED: RINGERS SOLUTION,LACTATED 1,000 ML IV PRN (03:42)
[2016-10-07] MEDS ORDERED: NALBUPHINE HCL INJ 10 MG/1 ML AMPULE IV ONE ×2 (03:43→10:26)
[2016-10-07] MEDS ORDERED: NALBUPHINE HCL INJ 10 MG/1 ML AMPULE ONE ×2 (03:49→10:26)
--- NOTE | 2016-10-07 08:01 | L&D Flow Sheet ---
LD Flowsheet Datetime Report Generated by CPN: 10/07/2016 08:00 Datetime: 10/07/2016 07:56 NBP Sys/Nikki/Mean (mmHg): 102 (QS system process) : 52 (QS system process) : 74 (QS system process) Pulse: 88 (QS system process) LaborFlag: Antepartum (QS system process) Datetime: 10/07/2016 07:42 NBP Sys/Nikki/Mean (mmHg): 105 (QS system process) : 51 (QS system process) : 73 (QS system process) Pulse: 89 (QS system process) LaborFlag: Antepartum (QS system process) Datetime: 10/07/2016 07:26 NBP Sys/Nikki/Mean (mmHg): 107 (QS system process) : 53 (QS system process) : 76 (QS system process) Pulse: 88 (QS system process) LaborFlag: Antepartum (QS system process) Datetime: 10/07/2016 07:12 Communication: Report Given to @ H. Abels RN (Sara Underwood RN) Communication Comments: Report given, care relinquished. (Sara Underwood RN) Datetime: 10/07/2016 07:11 NBP Sys/Nikki/Mean (mmHg): 119 (QS system process) : 56 (QS system process) : 80 (QS system process) Pulse: 93 (QS system process) LaborFlag: Antepartum (QS system process) Datetime: 10/07/2016 07:00 Monitor Mode: External; Palpation (Rucsandra Yasmine, RN) Frequency (min): occasional (Rucsandra Yasmine, RN) Quality: Mild (Rucsandra Yasmine, RN) Duration (sec): 40-50 (Rucsandra Yasmine, RN) Resting Tone (Palpate): Relaxed (Rucsandra Yasmine, RN) Contraction Comments: irritability noted (Rucsandra Yasmine, RN) Monitor Mode: External US (Rucsandra Yasmine, RN) FHR Baseline Rate : 140 (Rucsandra Yasmine, RN) Variability: Moderate 6-25 bpm (Rucsandra Yasmine, RN) Accelerations: 15X15 (Rucsandra Yasmine, RN) Decelerations: None (Rucsandra Yasmine, RN) Datetime: 10/07/2016 06:56 NBP Sys/Nikki/Mean (mmHg): 120 (QS system process) : 57 (QS system process) : 81 (QS system process) Pulse: 89 (QS system process) LaborFlag: Antepartum (QS system process) Datetime: 10/07/2016 06:41 NBP Sys/Nikki/Mean (mmHg): 123 (QS system process) : 61 (QS system process) : 85 (QS system process) Pulse: 87 (QS system process) LaborFlag: Antepartum (QS system process) Datetime: 10/07/2016 06:30 Monitor Mode: External; Palpation (Sara Underwood RN) Frequency (min): x2 (Sara Underwood RN) Quality: Mild (Sara Underwood RN) Duration (sec): 40-80 (Sara Underwood RN) Resting Tone (Palpate): Relaxed (Maliandra Yasmine, RN) Monitor Mode: External US (Rukaykay Underwood, RN) FHR Baseline Rate : 135 (Rucsandra Yasmine, RN) Variability: Moderate 6-25 bpm (Rucsandra Yasmine, RN) Accelerations: 15X15 (Rucsandra Yasmine, RN) Decelerations: None (Rucsandra Yasmine, RN) Datetime: 10/07/2016 06:26 NBP Sys/Nikki/Mean (mmHg): 128 (QS system process) : 64 (QS system process) : 89 (QS system process) Pulse: 88 (QS system process) LaborFlag: Antepartum (QS system process) Datetime: 10/07/2016 06:11 NBP Sys/Nikki/Mean (mmHg): 121 (QS system process) : 57 (QS system process) : 82 (QS system process) Pulse: 102 (QS system process) LaborFlag: Antepartum (QS system process) Datetime: 10/07/2016 06:00 Monitor Mode: External; Palpation (Rucsandra Yasmine, RN) Frequency (min): 8-16 (Rucsandra Yasmine, RN) Quality: Mild (Rucsandra Yasmine, RN) Duration (sec): 40-50 (Rucsandra Yasmine, RN) Resting Tone (Palpate): Relaxed (Rucsandra Yasmine, RN) Monitor Mode: External US (Rucsandra Yasmine, RN) FHR Baseline Rate : 130 (Rucsandra Yasmine, RN) Variability: Moderate 6-25 bpm (Rucsandra Yasmine, RN) Accelerations: 15X15 (Rucsandra Yasmine, RN) Decelerations: None (Rucsandra Yasmine, RN) Datetime: 10/07/2016 05:56 NBP Sys/Nikki/Mean (mmHg): 115 (QS system process) : 55 (QS system process) : 78 (QS system process) Pulse: 98 (QS system process) LaborFlag: Antepartum (QS system process) Datetime: 10/07/2016 05:41 NBP Sys/Nikki/Mean (mmHg): 113 (QS system process) : 57 (QS system process) : 79 (QS system process) Pulse: 109 (QS system process) Temperature (F): 98.3 (Sara Underwood RN) Temperature (C): 36.8 (QS system process) Pain Scale: 1 (Sara Underwood RN) Pain Presence: Intermittent (Sara Underwood RN) Pain Type: Cramping (Sara Underwood RN) Pain Location: Abdomen; Back (Sara Underwood RN) Pain Assessment Comments: pt resting in bed with eyes closed, denies needs. (Sara Underwood RN) LaborFlag: Antepartum (QS system process) Datetime: 10/07/2016 05:30 Monitor Mode: External; Palpation (Sara Underwood RN) Frequency (min): 9-17 (Sara Underwood RN) Quality: Mild/Moderate (Sara Underwood RN) Duration (sec): 40-90 (Sara Underwood RN) Resting Tone (Palpate): Relaxed (Sara Underwood RN) Monitor Mode: External US (Sara Underwood RN) FHR Baseline Rate : 130 (Sara Underwood RN) Variability: Moderate 6-25 bpm (Sara Underwood RN) Accelerations: 10X10 (Sara Underwood RN) Decelerations: None (Sara Underwood, RN) Datetime: 10/07/2016 05:26 NBP Sys/Nikki/Mean (mmHg): 122 (QS system process) : 58 (QS system process) : 83 (QS system process) Pulse: 93 (QS system process) LaborFlag: Antepartum (QS system process) Datetime: 10/07/2016 05:11 NBP Sys/Nikki/Mean (mmHg): 119 (QS system process) : 58 (QS system process) : 82 (QS system process) Pulse: 100 (QS system process) LaborFlag: Antepartum (QS system process) Datetime: 10/07/2016 05:00 Monitor Mode: External; Palpation (Rucsandra Yasmine, RN) Frequency (min): x1 (Rucsandra Yasmine, RN) Quality: Mild (Rucsandra Yasmine, RN) Duration (sec): 40 (Rucsandra Yasmine, RN) Resting Tone (Palpate): Relaxed (Rucsandra Yasmine, RN) Monitor Mode: External US (Rucsandra Yasmine, RN) FHR Baseline Rate : 130 (Rucsandra Yasmine, RN) Variability: Moderate 6-25 bpm (Rucsandra Yasmine, RN) Accelerations: 15X15 (Rucsandra Yasmine, RN) Decelerations: None (Rucsandra Yasmine, RN) Datetime: 10/07/2016 04:56 NBP Sys/Nikki/Mean (mmHg): 111 (QS system process) : 54 (QS system process) : 78 (QS system process) Pulse: 105 (QS system process) LaborFlag: Antepartum (QS system process) Datetime: 10/07/2016 04:45 Monitor Mode: External; Palpation (Rucsandra Yasmine, RN) Frequency (min): none (Rucsandra Yasmine, RN) Resting Tone (Palpate): Relaxed (Rucsandra Yasmine, RN) Monitor Mode: External US (Rucsandra Yasmine, RN) FHR Baseline Rate : 135 (Rucsandra Yasmine, RN) Variability: Moderate 6-25 bpm (Rucsandra Yasmine, RN) Accelerations: None (Rucsandra Yasmine, RN) Decelerations: None (Rucsandra Yasmine, RN) Datetime: 10/07/2016 04:41 NBP Sys/Nikki/Mean (mmHg): 126 (QS system process) : 60 (QS system process) : 86 (QS system process) Pulse: 111 (QS system process) LaborFlag: Antepartum (QS system process) Datetime: 10/07/2016 04:39 Pain Scale: 3 (Sara Underwood RN) Pain Presence: Intermittent (Sara Underwood RN) Pain Type: Contraction (Sara Underwood RN) Pain Location: Abdomen; Back (Sara Underwood RN) Pain Relief Measures: Comfort Measures (Sara Underwood RN) Maternal Comments: Pt resting in bed. Reports feeling better with ctx spacing apart and less intense. (Sara Underwood RN) Comfort Measures: Breathing/Relaxation (Sara Undewrood RN) LaborFlag: Antepartum (QS system process) Datetime: 10/07/2016 04:30 Monitor Mode: External; Palpation (Sara Underwood RN) Frequency (min): 4-5 (Sara Underwood RN) Quality: Mild/Moderate (Sara Underwood RN) Duration (sec): 40-60 (Sara Unedrwood RN) Resting Tone (Palpate): Relaxed (Sara Underwood RN) Contraction Comments: irritability noted (Sara Underwood RN) Monitor Mode: External US (Sara Underwood RN) FHR Baseline Rate : 135 (Sara Underwood RN) Variability: Moderate 6-25 bpm (Sara Underwood RN) Accelerations: None (Sara Underwood RN) Decelerations: None (Rucsandra Yasmine, RN) Datetime: 10/07/2016 04:26 NBP Sys/Nikki/Mean (mmHg): 106 (QS system process) : 53 (QS system process) : 76 (QS system process) Pulse: 108 (QS system process) LaborFlag: Antepartum (QS system process) Datetime: 10/07/2016 04:15 Monitor Mode: External; Palpation (Rucsandra Underwood, RN) Frequency (min): 3-4 (Rucsandra Yasmine, RN) Quality: Mild/Moderate (Rucsandra Yasmine, RN) Duration (sec): 40-50 (Rucsandra Yasmine, RN) Resting Tone (Palpate): Relaxed (Rucsandra Yasmine, RN) Monitor Mode: External US (Jasoncsandra Yasmine, RN) FHR Baseline Rate : 145 (Rucsandra Yasmine, RN) Variability: Moderate 6-25 bpm (Rucsandra Yasmine, RN) Accelerations: None (Rucsandra Yasmine, RN) Decelerations: None (Rucsandra Yasmine, RN) Datetime: 10/07/2016 04:11 NBP Sys/Nikki/Mean (mmHg): 130 (QS system process) : 61 (QS system process) : 88 (QS system process) Pulse: 110 (QS system process) LaborFlag: Antepartum (QS system process) Datetime: 10/07/2016 04:06 Pain Scale: 4 (Sara Underwood RN) Pain Presence: Intermittent (Sara Underwood RN) Pain Type: Contraction (Sara Underwood RN) Pain Location: Abdomen; Back (Sara Underwood RN) Pain Goal: 2 (Sara Underwood RN) Pain Relief Measures: Pain Medication Given (Sara Underwood RN) Analgesics/Sedatives: Nubain (mg) @ 10 mg IV (Sara Underwood RN) Medication Comments: Intended effects and possible side effects explained to pt. Pt agrees and V/U. (Sara Underwood RN) LaborFlag: Antepartum (QS system process) Datetime: 10/07/2016 04:02 Maternal Comments: pt back to bed without incident (Rucsandra Yasmine, RN) Datetime: 10/07/2016 04:00 Monitor Mode: External; Palpation (Rucsandra Yasmine, RN) Frequency (min): 2-2.5 (Rucsandra Yasmine, RN) Quality: Mild/Moderate (Rucsandra Yasmine, RN) Duration (sec): 40-60 (Rucsandra Yasmine, RN) Resting Tone (Palpate): Relaxed (Rucsandra Yasmine, RN) Monitor Mode: External US (Rucsandra Yasmine, RN) FHR Baseline Rate : 155 (Rucsandra Yasmine, RN) Variability: Moderate 6-25 bpm (Rucsandra Yasmine, RN) Accelerations: 15X15 (Rucsandra Yasmine, RN) Decelerations: None (Rucsandra Yasmine, RN) Datetime: 10/07/2016 03:58 I/O Interventions: Up to BR (Sara Underwood RN) Datetime: 10/07/2016 03:57 NBP Sys/Nikki/Mean (mmHg): 135 (QS system process) : 63 (QS system process) : 88 (QS system process) Pulse: 109 (QS system process) Maternal Comments: consent forms signed and witnessed. (Sara Underwood RN) LaborFlag: Antepartum (QS system process) Datetime: 10/07/2016 03:50 Maternal Comments: pt reviewing and signing consent forms (Sara Underwood RN) IV/Blood Work: IV Infusing per Order; New IV Bag Hung (Rucsandra Yasmine, RN) Patient Care Comments: LR infusing at 125ml/hr (Maliandra Underwood, RN) Datetime: 10/07/2016 03:45 Monitor Mode: External; Palpation (Sara Underwood, RN) Frequency (min): 2-6 (Rukaykay Underwood, RN) Quality: Mild/Moderate (Rucsandra Underwood, RN) Duration (sec): 40-80 (Rucsdejuan Underwood, RN) Resting Tone (Palpate): Relaxed (Maliandra Underwood, RN) Monitor Mode: External US (Maliandra Underwood, RN) FHR Baseline Rate : 160 (Rucsandra Yasmine, RN) Variability: Moderate 6-25 bpm (Rucsandra Yasmine, RN) Accelerations: 15X15 (Rucsandra Yasmine, RN) Decelerations: None (Rucsandra Yasmine, RN) Datetime: 10/07/2016 03:44 Communication Comments: Discussed POC with pt and family, all agree and V/U. (Rucsandra Yasmine, RN) Datetime: 10/07/2016 03:42 NBP Sys/Nikki/Mean (mmHg): 135 (QS system process) : 66 (QS system process) : 93 (QS system process) Pulse: 113 (QS system process) LaborFlag: Antepartum (QS system process) Datetime: 10/07/2016 03:40 Communication: Call/Page Placed to Provider (Sara Underwood RN) Provider Notified (Name): Dr Hines (Sara Underwood RN) Notification Reason: Status Update (Sara Underwood RN) Communication Comments: Called Dr Hines. Advised of FHTs, CTX, SVE, VS, pt pain. Orders recieved to change pt status to 24 hour OBS, LR at 125ml/hr and give 10mg IV Nubain x1 dose now. (Sara Underwood RN) Datetime: 10/07/2016 03:35 Dilatation (cm): 0.0 (Sara Underwood RN) Effacement (%): 50 (Sara Underwood RN) Station: -3 (Sara Underwood RN) Exam by: Sahra Underwood RN (Sara Underwood, YUNG) Vaginal Bleeding: None (Sara Underwood RN) Datetime: 10/07/2016 03:33 Pain Scale: 4 (Sara Underwood RN) Pain Presence: Intermittent (Sara Underwood RN) Pain Type: Contraction (Sara Underwood RN) Pain Location: Abdomen; Back (Sara Underwood RN) Pain Relief Measures: Comfort Measures (Sara Underwood RN) LaborFlag: Antepartum (QS system process) Datetime: 10/07/2016 03:30 Monitor Mode: External; Palpation (Rucsandra Yasmine, RN) Frequency (min): 2-2.5 (Rucsandra Yasmine, RN) Quality: Mild/Moderate (Rucsandra Yasmine, RN) Duration (sec): 40-60 (Rucsandra Yasmine, RN) Resting Tone (Palpate): Relaxed (Rucsandra Yasmine, RN) Monitor Mode: External US (Rucsandra Yasmine, RN) FHR Baseline Rate : 160 (Rucsandra Yasmine, RN) Variability: Moderate 6-25 bpm (Rucsandra Yasmine, RN) Accelerations: 15X15 (Rucsandra Yasmine, RN) Decelerations: None (Rucsandra Yasmine, RN) Datetime: 10/07/2016 03:26 NBP Sys/Nikki/Mean (mmHg): 131 (QS system process) : 62 (QS system process) : 89 (QS system process) Pulse: 118 (QS system process) LaborFlag: Antepartum (QS system process) Datetime: 10/07/2016 03:15 Monitor Mode: External; Palpation (Rucsandra Yasmine, RN) Frequency (min): 2-4.5 (Rucsandra Yasmine, RN) Quality: Mild/Moderate (Rucsandra Yasmine, RN) Duration (sec): 40-50 (Rucsandra Yasmine, RN) Resting Tone (Palpate): Relaxed (Rucsandra Yasmine, RN) Contraction Comments: irritability noted (Rucsandra Yasmine, RN) Monitor Mode: External US (Rucsandra Yasmine, RN) FHR Baseline Rate : 155 (Rucsandra Yasmine, RN) Variability: Moderate 6-25 bpm (Rucsandra Yasmine, RN) Accelerations: 15X15 (Rucsandra Yasmine, RN) Decelerations: None (Rucsandra Yasmine, RN) Datetime: 10/07/2016 03:11 NBP Sys/Nikki/Mean (mmHg): 139 (QS system process) : 67 (QS system process) : 95 (QS system process) Pulse: 127 (QS system process) LaborFlag: Antepartum (QS system process) Datetime: 10/07/2016 03:00 Monitor Mode: External; Palpation (Rucsandra Yasmine, RN) Frequency (min): x2 (Rucsandra Yasmine, RN) Quality: Mild/Moderate (Rucsandra Yasmine, RN) Duration (sec): 40-50 (Rucsandra Yasmine, RN) Resting Tone (Palpate): Relaxed (Rucsandra Yasmine, RN) Monitor Mode: External US (Rucsandra Yasmine, RN) FHR Baseline Rate : 150 (Rucsandra Yasmine, RN) Variability: Moderate 6-25 bpm (Rucsandra Yasmine, RN) Accelerations: None (Rucsandra Yasmine, RN) Decelerations: None (Rucsandra Yasmine, RN) Datetime: 10/07/2016 02:56 NBP Sys/Nikki/Mean (mmHg): 142 (QS system process) : 64 (QS system process) : 92 (QS system process) Pulse: 133 (QS system process) Maternal Comments: cold wash cloth provided. (Rucsandra Underwood, RN) LaborFlag: Antepartum (QS system process) Datetime: 10/07/2016 02:55 Patient Position/Activity: Right Tilt; Semi-Fowlers (Rucsandra Yasmine, RN) Datetime: 10/07/2016 02:54 Maternal Comments: pt back to bed without incident (Rucsandra Yasmine, RN) Datetime: 10/07/2016 02:47 Maternal Comments: pt emesis while up to BR (Rucsandra Yasmine, RN) Datetime: 10/07/2016 02:45 Monitor Mode: External; Palpation (Rucsandra Yasmine, RN) Frequency (min): 2.5-4 (Rucsandra Yasmine, RN) Quality: Moderate (Rucsandra Yasmine, RN) Duration (sec): 40-50 (Rucsandra Yasmine, RN) Resting Tone (Palpate): Relaxed (Rucsandra Yasmine, RN) Monitor Mode: External US (Rucsandra Yasmine, RN) FHR Baseline Rate : 150 (Rucsandra Yasmine, RN) Variability: Moderate 6-25 bpm (Rucsandra Yasmine, RN) Accelerations: 15X15 (Rucsandra Yasmine, RN) Decelerations: None (Rucsandra Yasmine, RN) Datetime: 10/07/2016 02:40 I/O Interventions: Up to BR (Rucsandra Yasmine, RN) Datetime: 10/07/2016 02:39 Temperature (F): 98.3 (Sara Underwood, RN) Temperature (C): 36.8 (QS system process) LaborFlag: Antepartum (QS system process) Datetime: 10/07/2016 02:38 Maternal Comments: 1000ml LR bolus completed (Sara Underwood, RN) Datetime: 10/07/2016 02:37 NBP Sys/Nikki/Mean (mmHg): 127 (QS system process) : 57 (QS system process) : 82 (QS system process) Pulse: 137 (QS system process) LaborFlag: Antepartum (QS system process) Datetime: 10/07/2016 02:30 Monitor Mode: External; Palpation (Rucsandra Yasmine, RN) Frequency (min): 3-4 (Rucsandra Yasmine, RN) Quality: Mild/Moderate (Rucsandra Yasmine, RN) Duration (sec): 40-50 (Rucsandra Yasmine, RN) Resting Tone (Palpate): Relaxed (Rucsandra Yasmine, RN) Monitor Mode: External US (Rucsandra Yasmine, RN) FHR Baseline Rate : 145 (Rucsandra Yasmine, RN) Variability: Moderate 6-25 bpm (Rucsandra Yasmine, RN) Accelerations: 15X15 (Rucsandra Yasmine, RN) Decelerations: None (Rucsandra Yasmine, RN) Datetime: 10/07/2016 02:26 NBP Sys/Nikki/Mean (mmHg): 137 (QS system process) : 73 (QS system process) : 98 (QS system process) Pulse: 100 (QS system process) LaborFlag: Antepartum (QS system process) Datetime: 10/07/2016 02:24 Tocolytics: Terbutaline 0.25mg Subcutaneous-Pulse Less than 120 (Annotations: left arm) (Sara Underwood, YUNG) Datetime: 10/07/2016 02:22 Maternal Comments: pt back to bed without incident (Sara Underwood, RN) Datetime: 10/07/2016 02:15 Monitor Mode: External; Palpation (Sara Underwood RN) Frequency (min): 3-3.5 (Sara Underwood RN) Quality: Mild/Moderate (Sara Underwood RN) Duration (sec): 40-60 (Sara Underwood RN) Resting Tone (Palpate): Relaxed (Sara Underwood RN) Monitor Mode: External US (Sara Underwood RN) FHR Baseline Rate : 145 (Sara Underwood RN) Variability: Moderate 6-25 bpm (Sara Underwood RN) Accelerations: 15X15 (Sara Underwood RN) Decelerations: None (Sara Underwood, YUNG) Datetime: 10/07/2016 02:12 I/O Interventions: Up to BR (Sara Underwood, YUNG) Datetime: 10/07/2016 02:08 Communication: Call/Page Placed to Provider (Sara Underwood RN) Provider Notified (Name): Dr Hines (Sara Underwood RN) Notification Reason: Status Update (Sara Underwood RN) Communication Comments: Called Dr Hines. Advised of FHTs, CTX, SVE, pt reporting feeling ctx intensifying. Orders received for Terbutaline 0.25mg subcutaneous x1 dose now. (Sara Underwood RN) Datetime: 10/07/2016 02:01 Maternal Comments: audible movement (Sara Underwood RN) Datetime: 10/07/2016 02:00 NBP Sys/Nikki/Mean (mmHg): 119 (QS system process) : 59 (QS system process) : 82 (QS system process) Pulse: 100 (QS system process) Monitor Mode: External; Palpation (Sara Underwood RN) Monitor Interventions for UA: [place] Adjusted (Sara Underwood RN) Frequency (min): 1.5-3 (Sara Underwood RN) Quality: Mild/Moderate (Sara Underwood RN) Duration (sec): 60-80 (Sara Underwood RN) Resting Tone (Palpate): Relaxed (Sara Underwood RN) Monitor Mode: External US (Sara Underwood RN) FHR Baseline Rate : 140 (Sara Underwood RN) Variability: Moderate 6-25 bpm (Sara Underwood RN) Accelerations: 15X15 (Sara Underwood RN) Decelerations: None (Sara Underwood RN) Patient Position/Activity: Right Lateral (Sara Underwood RN) LaborFlag: Antepartum (QS system process) Datetime: 10/07/2016 01:56 Maternal Comments: audible movement. (Rucsandra Yasmine, RN) Datetime: 10/07/2016 01:53 Antiemetics/Antacids: Zofran IV (mg) @ 8mg IV (Rucsandra Yasmine, RN) Datetime: 10/07/2016 01:50 IV/Blood Work: IV Started; IV Bolus Started; IV Infusing per Order; New IV Bag Hung; IV Bag Number @ 1 (Rucsandra Yasmine, RN) Datetime: 10/07/2016 01:46 Dilatation (cm): 0.0 (Sara Underwood RN) Effacement (%): 50 (Sara Underwood RN) Station: -3 (Sara Underwood RN) Exam by: Sahra Underwood RN (Sara Underwood RN) Vaginal Bleeding: None (Sara Underwood RN) Datetime: 10/07/2016 01:45 Monitor Mode: External; Palpation (Sara Underwood RN) Frequency (min): 1.5-3 (Sara Underwood RN) Quality: Moderate (Sara Underwood RN) Duration (sec): 40-60 (Sara Underwood RN) Resting Tone (Palpate): Relaxed (Sara Underwood RN) Monitor Mode: External US (Sara Underwood RN) FHR Baseline Rate : 145 (Sara Underwood RN) Variability: Moderate 6-25 bpm (Sara Underwood RN) Accelerations: None (Rucsandra Yasmine, RN) Decelerations: None (Maliandra Underwood, RN) Maternal Comments: pt back to bed without incident (Maliandra Underwood, RN) Datetime: 10/07/2016 01:40 I/O Interventions: Up to BR (Sara Underwood, RN) Datetime: 10/07/2016 01:36 NBP Sys/Nikki/Mean (mmHg): 137 (QS system process) : 75 (QS system process) : 99 (QS system process) Pulse: 105 (QS system process) LaborFlag: Antepartum (QS system process) Datetime: 10/07/2016 01:30 Monitor Mode: External; Palpation (Sara Underwood RN) Frequency (min): 2-2.5 (Sara Underwood RN) Quality: Mild/Moderate (Sara Underwood RN) Duration (sec): 40-60 (Sara Underwood RN) Resting Tone (Palpate): Relaxed (Sara Underwood RN) Monitor Mode: External US (Sara Underwood RN) FHR Baseline Rate : 140 (Sara Underwood RN) Variability: Moderate 6-25 bpm (Sara Underwood RN) Accelerations: None (Sara Underwood RN) Decelerations: None (Sara Underwood RN) Communication: Call/Page Placed to Provider (Sara Underwood RN) Provider Notified (Name): Dr Hines (Sara Underwood RN) Notification Reason: Status Update (Sara Underwood RN) Communication Comments: Called Dr. Donny MD advised of Gs_Ps, EDC, pt complaints and medical history reviewed with . advised of FTHs, CTX, SVE, VS, assessment findings, and urine results. Orders received to start IV and bolus 1L LR, give 8mg Zofran IV x1 dose now. (Sara Underwood RN) Datetime: 10/07/2016 01:26 Maternal Comments: pt sitting up, maternal heart rate tracing (Sara Underwood RN) Datetime: 10/07/2016 01:20 NBP Sys/Nikki/Mean (mmHg): 141 (QS system process) : 69 (QS system process) : 97 (QS system process) Pulse: 105 (QS system process) LaborFlag: Antepartum (QS system process) Datetime: 10/07/2016 01:15 Monitor Mode: External; Palpation (Rucsandra Yasmine, RN) Frequency (min): 2-3 (Rucsandra Yasmine, RN) Quality: Mild/Moderate (Rucsandra Yasmine, RN) Duration (sec): 40-60 (Rucsandra Yasmine, RN) Resting Tone (Palpate): Relaxed (Rucsandra Yasmine, RN) Monitor Mode: External US (Rucsandra Yasmine, RN) FHR Baseline Rate : 135 (Rucsandra Yasmine, RN) Variability: Moderate 6-25 bpm (Rucsandra Yasmine, RN) Accelerations: None (Rucsandra Yasmine, RN) Decelerations: None (Rucsandra Yasmine, RN) Datetime: 10/07/2016 01:07 Maternal Comments: pt vomitting (Sara Underwood, RN) Datetime: 10/07/2016 01:04 NBP Sys/Nikki/Mean (mmHg): 134 (QS system process) : 83 (QS system process) : 102 (QS system process) Pulse: 105 (QS system process) LaborFlag: Antepartum (QS system process) Datetime: 10/07/2016 01:00 Monitor Mode: External; Palpation (Sara Underwood RN) Frequency (min): 2-3 (Sara Underwood RN) Quality: Mild/Moderate (Zulemara Underwood, RN) Duration (sec): 40-60 (Sara Underwood, RN) Resting Tone (Palpate): Relaxed (Sara Underwood RN) Monitor Mode: External US (Sara Underwood RN) FHR Baseline Rate : 135 (Sara Underwood, RN) Variability: Moderate 6-25 bpm (Maliandra Underwood, RN) Accelerations: None (Sara Underwood, RN) Decelerations: None (Rucsandra Underwood, RN) Datetime: 10/07/2016 00:59 Bedside Blood Glucose: 109 (QS system process) Bedside Blood Glucose: 109 (Sara Underwood RN) LaborFlag: Antepartum (QS system process) Datetime: 10/07/2016 00:56 Maternal Comments: pt sitting up, maternal heart rate palpated and tracing (Sara Underwood, RN) Datetime: 10/07/2016 00:54 Maternal Comments: pt sitting up vomitting (Sara Underwood, RN) Datetime: 10/07/2016 00:50 NBP Sys/Nikki/Mean (mmHg): 129 (QS system process) : 80 (QS system process) : 99 (QS system process) Pulse: 112 (QS system process) LaborFlag: Antepartum (QS system process) Datetime: 10/07/2016 00:45 Monitor Mode: External; Palpation (Sara Underwood RN) Frequency (min): 2-3 (Sara Underwood RN) Quality: Mild/Moderate (Sara Underwood RN) Duration (sec): 50-60 (Sara Underwood RN) Resting Tone (Palpate): Relaxed (Sara Underwood RN) Monitor Mode: External US (Sara Underwood RN) FHR Baseline Rate : 135 (Sara Underwood RN) Variability: Moderate 6-25 bpm (Sara Underwood, RN) Accelerations: None (Sara Underwood, YUNG) Decelerations: None (Sara Underwood, RN) Datetime: 10/07/2016 00:42 Maternal Comments: pt vomitting (Sara Underwood, RN) Datetime: 10/07/2016 00:40 Temperature (F): 98.0 (Sara Underwood RN) Temperature (C): 36.7 (QS system process) Pain Scale: 4 (Sara Underwood RN) Pain Presence: Intermittent (Sara Underwood RN) Pain Type: Contraction (Sara Underwood RN) Pain Location: Abdomen; Back (Sara Underwood RN) Pain Goal: 2 (Sara Underwood RN) Pain Coping: Breathing Through Contractions (Sara Underwood RN) Membrane Status: Intact (Sara Underwood RN) Vaginal Bleeding: None (Sara Underwood RN) Level of Consciousness: Fully Conscious (Sara Underwood RN) DTR's/Clonus: DTRs 2+; No Clonus (Sara Underwood RN) Headache: Denies (Sara Underwood RN) Breath Sounds, Left: Clear and Equal (Sara Underwood RN) Breath Sounds, Right: Clear and Equal (Sara Underwood RN) Nausea/Vomiting: Present (Sara Underwood RN) RUQ Epigastric Pain: Denies (Sara Underwood RN) LaborFlag: Antepartum (QS system process) Datetime: 10/07/2016 00:39 Dilatation (cm): 0.0 (Sara Underwood RN) Effacement (%): 0 (Sara Underwood RN) Station: -3 (Sara Underwood RN) Exam by: Sahra Underwood RN (Sara Underwood RN) Vaginal Bleeding: None (Sara Underwood RN) Datetime: 10/07/2016 00:34 NBP Sys/Nikki/Mean (mmHg): 140 (QS system process) : 81 (QS system process) : 105 (QS system process) Pulse: 100 (QS system process) LaborFlag: Antepartum (QS system process) Datetime: 10/07/2016 00:32 Stage of : Antepartum (Sara Underwood RN) Patient Position/Activity: Left Tilt (Sara Underwood RN) Instructional Method: Verbal; Patient Instructed; Family/Support Person Instructed; Verbalized Understanding (Sara Underwood RN) Plan of Care: Plan of Care Discussed (Sara Underwood RN) Unit Routine: [place] to Room; Call Wilde; Bed; Visiting Policy; Waiting Areas; Unit Personnel; Handwashing; Monitoring; Safety/Fall Risk Prevention; Bathroom Privileges (Sara Underwood RN)
[2016-10-07] MEDS ORDERED: NIFEDIPINE 30 MG TAB.ER.24 PO ONE (10:09)
[2016-10-07] MEDS ORDERED: NIFEDIPINE 10 MG CAPSULE ONE ×2 (10:12→10:18)
[2016-10-07] MEDS ORDERED: PROMETHAZINE HCL INJ 25 MG/1 ML VIAL IV PRN (10:27)
[2016-10-07] MEDS ORDERED: PROCHLORPERAZINE MALEATE 5 MG TABLET PO ONE (10:30)
[2016-10-07] MEDS ORDERED: PROCHLORPERAZINE MALEATE 10 MG TABLET PO ONE (10:31)
[2016-10-07] MEDS ORDERED: PROCHLORPERAZINE MALEATE 10 MG TABLET ONE (10:32)
[2016-10-07 10:38] LABS: AMNISURE (ROM) NEGATIVE (NEGATIVE)
--- NOTE | 2016-10-17 22:59 | PDOC H&P ---
History of Present Illness Admission Date/PCP: 10/07/16 04:47 THOMAS BECKHAM DO Patient complains of: uterine contractions History of Present Illness: IAN STEVE is a 21 year old female at 34 + weeks who presents with regular uterine contractions. Patient has fetus with spina bifida and is scheduled to deliver at [place]. Past Medical History Medical History: None Social History Smoking Status: Never Smoker Frequency of Alcohol Use: None Hx Recreational Drug Use: No Family History Family History: Reviewed & Not Pertinent Parental Family History Reviewed: Yes Children Family History Reviewed: Yes Sibling(s) Family History Reviewed.: Yes Medication/Allergy Home Medications: Glyburide [Diabeta 2.5 mg Tablet] 1 tab PO QHS 09/25/16 Glyburide [Diabeta 2.5 mg Tablet] 2.5 mg PO QAM 10/13/16 Ondansetron [Zofran Odt 4 mg Tablet] 8 mg PO Q8HP PRN #30 tab.rapdis 10/15/16 Oxycodone HCl/Acetaminophen [Percocet 5-325 mg Tablet] 1 tab PO Q6HP PRN #30 tablet 10/15/16 Allergies/Adverse Reactions: No Known Allergies Allergy (Verified 10/13/16 16:08) Review of Systems Constitutional: PRESENT: as per HPI Physical Exam - Physical Exam General appearance: PRESENT: no acute distress, cooperative Respiratory exam: PRESENT: clear to auscultation chastity Cardiovascular exam: PRESENT: RRR GI/Abdominal exam: PRESENT: normal bowel sounds, soft. ABSENT: distended, guarding, mass, organolmegaly, rebound, tenderness Extremities exam: PRESENT: full ROM. ABSENT: calf tenderness, clubbing, pedal edema Assessment & Plan - Diagnosis (1) uterine contractions in third trimester, antepartum Is this a current diagnosis for this admission?: Yes - Plan Summary Plan Summary: observation in hospital to further evaluate for labor. Transfer to [place] if evidence early labor. IVF and terbutaline ass well as antiemetics
== END 2016-10-07 11:49 | disposition short-term general hospital (02) ==
LOC: LC 00:17 → LR 04:47
PROVIDERS: ADMIT Obstetrics & Gynecology; ATTEND Obstetrics & Gynecology
PROC: 4A1HXCZ Monitoring of Products of Conception, Cardiac Rate, External Approach (ICD-10-PCS; principal; 2016-10-07)
DX: O60.03 Preterm labor without delivery, third trimester (principal); O35.0XX0 Maternal care for (suspected) central nervous system malformation in fetus, not applicable or unspecified; O36.8930 Maternal care for other specified fetal problems, third trimester, not applicable or unspecified; Z3A.34 34 weeks gestation of pregnancy; Z79.84 Long term (current) use of oral hypoglycemic drugs
CPT/HCPCS: 84112; 82962; 81001; 80307; 59899; G0378; G0379; J2300; J3490; S0183; J3105; J2405

== ENCOUNTER 2016-10-13 14:49 | Inpatient (IN) | payer OTHER ==
[2016-10-13] MEDS ORDERED: NALBUPHINE HCL INJ 10 MG/1 ML AMPULE ONE ×2 (15:44→15:56)
[2016-10-13 15:57] LABS: APPEARANCE,URINE SLIGHTLY-CLOUDY; BILIRUBIN,URINE NEGATIVE (NEGATIVE); GLUCOSE, URINE NEGATIVE (NEGATIVE); KETONES,URINE 80 mg/dL (NEGATIVE); LEUKOCYTE ESTERASE,URINE SMALL (NEGATIVE); NITRITE,URINE NEGATIVE (NEGATIVE); PROTEIN,URINE NEGATIVE (NEGATIVE); URINE SPECIFIC GRAVITY 1.006; UROBILINOGEN,URINE NEGATIVE mg/dL (<2.0)
[2016-10-13 18:01] LABS: URINE BARBITURATES SCREEN NEGATIVE; URINE METHADONE SCREEN NEGATIVE; URINE OPIATES LOW NEGATIVE; URINE PHENCYCLIDINE SCREEN NEGATIVE
[2016-10-13 18:26] LABS: ABSOLUTE EOSINOPHILS # (AUTO) 0.1 10^3/uL (0.0-0.6); ABSOLUTE LYMPHOCYTES (AUTO) 1.9 10^3/uL (0.5-4.7); ABSOLUTE MONOCYTES (AUTO) 0.8 10^3/uL (0.1-1.4); ABSOLUTE NEUT (AUTO) 13.1 10^3/uL (1.7-8.2); BASOPHILS % (AUTO) 0.3 % (0-2); EOSINOPHILS % (AUTO) 0.5 % (0-6); HEMATOCRIT 24.9 % (36.0-47.0); HGB HCT DIFFERENCE -0.9; MEAN CORPUSCULAR HEMOGLOBIN 19.3 pg (27.0-33.4); MEAN CORPUSCULAR HGB CONC 32.1 g/dL (32.0-36.0); RED BLOOD COUNT 4.14 10^6/uL (3.72-5.28); RED CELL DISTRIBUTION WIDTH 13.6 % (11.5-14.0); SEGMENTED NEUTROPHILS % (AUTO) 82.2 % (42-78); WHITE BLOOD COUNT 15.9 10^3/uL (4.0-10.5)
[2016-10-13 18:37] LABS: ANION GAP 10 (5-19); BLOOD UREA NITROGEN 6 mg/dL (7-20); CALCIUM 8.9 mg/dL (8.4-10.2); CARBON DIOXIDE 23 mmol/L (22-30); CHLORIDE 106 mmol/L (98-107); GLUCOSE 99 mg/dL (75-110); POTASSIUM 3.9 mmol/L (3.6-5.0); SODIUM 138.7 mmol/L (137-145)
[2016-10-13 18:44] LABS: HYPOCHROMASIA 3+; MICROCYTOSIS 3+; OVALOCYTES 1+; POIKILOCYTOSIS 1+; POLYCHROMASIA 2+; SCHISTOCYTES SLIGHT; TEAR DROP CELLS SLIGHT
[2016-10-13 18:45] LABS: MEAN CORPUSCULAR VOLUME 60 fl (80-97)
[2016-10-13] MEDS ORDERED: ONDANSETRON 4 MG TAB.RAPDIS PO PRN (18:54)
[2016-10-13] MEDS: ONDANSETRON HCL INJ/PF 4 MG/2 ML SDV IV PRN (20:56)
[2016-10-13] MEDS ORDERED: ZOLPIDEM TARTRATE 5 MG TABLET PO PRN (21:15)
[2016-10-13] MEDS: OXYCODONE-ACETAMINOPHEN 5-325 MG TABLET PO PRN (23:58)
[2016-10-14] MEDS: DEXTROSE 5%-LACTATED RINGERS 1,000 ML IV PRN ×2 (02:06→10:17)
[2016-10-14] MEDS: OXYCODONE-ACETAMINOPHEN 5-325 MG TABLET PO PRN ×2 (07:56→17:22)
--- NOTE | 2016-10-14 09:53 | PDOC PROGRESS REPORT ---
Subjective Progress Note for:: 10/14/16 Subjective:: Pt note tolerating po fluids. Notes kidney stone pain leads to nausea and vomitng. Pain mainly left flank. Good movement. Occasional ctx-not regular. Physical Exam - Physical Exam Vital Signs: Temp Pulse Resp BP Pulse Ox 98.4 F 83 16 132/76 H 98 10/14/16 08:53 10/14/16 08:53 10/14/16 08:53 10/14/16 08:53 10/14/16 08:53 Intake & Output 10/13/16 10/14/16 10/15/16 06:59 06:59 06:59 Intake Total 3000 Output Total 1150 Balance 1850 Weight 80.5 kg General appearance: PRESENT: no acute distress GI/Abdominal exam: PRESENT: soft, other - gravid, nontender points to pain in l flank but no cva tenderness to percussion Result Laboratory Results: 10/13/16 18:09 10/13/16 18:09 10/13/16 10/13/16 10/13/16 15:23 15:23 18:09 WBC 15.9 H RBC 4.14 Hgb 8.0 L Hct 24.9 L MCV 60 L MCH 19.3 L MCHC 32.1 RDW 13.6 Plt Count 304 Seg Neutrophils % 82.2 H Lymphocytes % 12.0 L Monocytes % 5.0 Eosinophils % 0.5 Basophils % 0.3 Absolute Neutrophils 13.1 H Absolute Lymphocytes 1.9 Absolute Monocytes 0.8 Absolute Eosinophils 0.1 Absolute Basophils 0.0 Sodium Potassium Chloride Carbon Dioxide Anion Gap BUN Creatinine Est GFR ( Amer) Est GFR (Non-Af Amer) Glucose Calcium Urine Color YELLOW Cancelled Urine Appearance SLIGHTLY-CLOUDY Cancelled Urine pH 7.0 Cancelled Ur Specific [place] 1.006 Cancelled Urine Protein NEGATIVE Cancelled Urine Glucose (UA) NEGATIVE Cancelled Urine Ketones 80 H Cancelled Urine Blood SMALL H Cancelled Urine Nitrite NEGATIVE Cancelled Ur Leukocyte Esterase SMALL H Cancelled Urine WBC (Auto) 7 Urine RBC (Auto) 8 10/13/16 18:09 WBC RBC Hgb Hct MCV MCH MCHC RDW Plt Count Seg Neutrophils % Lymphocytes % Monocytes % Eosinophils % Basophils % Absolute Neutrophils Absolute Lymphocytes Absolute Monocytes Absolute Eosinophils Absolute Basophils Sodium 138.7 Potassium 3.9 Chloride 106 Carbon Dioxide 23 Anion Gap 10 BUN 6 L Creatinine 0.60 Est GFR ( Amer) > 60 Est GFR (Non-Af Amer) > 60 Glucose 99 Calcium 8.9 Urine Color Urine Appearance Urine pH Ur Specific [place] Urine Protein Urine Glucose (UA) Urine Ketones Urine Blood Urine Nitrite Ur Leukocyte Esterase Urine WBC (Auto) Urine RBC (Auto) Assessment & Plan - Plan Summary Plan Summary: check fs--pt on glyburide when tolerating po will resume encouraged use of antiemetics iv fluids advance diet as tolerated to GDM check fhts dialy
[2016-10-14] MEDS: ONDANSETRON HCL INJ/PF 4 MG/2 ML SDV IV PRN (10:58)
[2016-10-14] MEDS: HYDROMORPHONE HCL INJ/PF 2 MG/ML AMPULE IV PRN ×2 (12:25→22:07)
[2016-10-14] MEDS ORDERED: ONDANSETRON 4 MG TAB.RAPDIS PO PRN (14:05)
[2016-10-14] MEDS ORDERED: PROMETHAZINE HCL INJ 25 MG/1 ML VIAL IV PRN (14:05)
[2016-10-15] MEDS: OXYCODONE-ACETAMINOPHEN 5-325 MG TABLET PO PRN (01:50)
[2016-10-15] MEDS: DEXTROSE 5%-LACTATED RINGERS 1,000 ML IV PRN ×2 (02:18→10:44)
[2016-10-15 10:24] VITALS: BP 129/76
--- NOTE | 2016-10-15 10:44 | PDOC DISCHARGE SUMMARY ---
General - Admit/Disc Date/PCP Admission Date/Primary Care Provider: 10/13/16 17:05 THOMAS BECKHAM DO Discharge Date: 10/15/16 - Discharge Diagnosis (1) with nephrolithiasis in third trimester Is this a current diagnosis for this admission?: Yes - Additional Information Discharge Diet: Regular, Diabetic Discharge Activity: Balance Activity w/Rest Home Medications: Glyburide [Diabeta 2.5 mg Tablet] 1 tab PO QHS 09/25/16 Glyburide [Diabeta 2.5 mg Tablet] 2.5 mg PO QAM 10/13/16 Ondansetron [Zofran Odt 4 mg Tablet] 8 mg PO Q8HP PRN #30 tab.rapdis 10/15/16 Oxycodone HCl/Acetaminophen [Percocet 5-325 mg Tablet] 1 tab PO Q6HP PRN #30 tablet 10/15/16 History of Present Illness Patient complains of: Ms. Rose was admitted with pain from kidney stones. She also had nausea and vomiting. She is much better today and wishes to go home. She will be sent home with some nausea medication as well as pain medication. She is to follow-up as planned previously. History of Present Illness: IAN ROSE is a 21 year old female Hospital Course Hospital Course: Throughout her hospitalization she improved and was able to take a regular diet. She still has pain from her kidney stones and requests medication for pain and nausea to go home with. Physical Exam - Physical Exam Vital Signs: Temp Pulse Resp BP Pulse Ox 98.1 F 77 16 129/76 H 96 10/15/16 08:45 10/15/16 08:45 10/15/16 08:45 10/15/16 08:45 10/15/16 08:45 Intake & Output 10/14/16 10/15/16 10/16/16 06:59 06:59 06:59 Intake Total 3000 2200 Output Total 1150 2800 Balance 1850 -600 Weight 80.5 kg General appearance: PRESENT: no acute distress Head exam: PRESENT: atraumatic Respiratory exam: PRESENT: unlabored Psychiatric exam: PRESENT: normal mood Result Laboratory Results: 10/13/16 18:09 10/13/16 18:09 Impressions: Much improved pain and nausea. Plan Discharge Plan: Home to rest. Medications for nausea and pain and been written. She is to follow up as planned. Time Spent: Less than 30 Minutes
[2016-10-16 17:48] LABS: PATH REVIEW PATHOLOGIST REVIEWED
--- NOTE | 2016-10-17 12:15 | Admission Physical ---
Datetime Report Generated by CPN: 10/17/2016 12:15 CURRENT ADMISSION Hx Assessment: The History has been Reviewed and is Current Chief Complaint: Other Chief Complaint: Uterine Contractions Chief Complaint Other: kidney stone pain Admit Impression- Other: Pain control ALLERGIES Medication Allergies: No Medication Allergies: No Known Allergies (10/13/2016) Medication Allergies: No Known Allergies (10/02/2016) Medication Allergies: No Known Allergies (09/28/2016) Medication Allergies: No Known Allergies (08/13/2016) Latex: No Latex Allergies Food Allergies: n/a Environmental Allergies: n/a OBSTETRICAL HISTORY EDC: 11/17/2016 00:00 : 1 Para: 0 Para: 0 Term: 0 : 0 SAB: 0 IAB: 0 Ectopic: 0 Livin Cesareans: 0 VBACs: 0 Multiple Births: 0 Gestational Diabetes: No Rh Sensitization: No Incompetent Cervix: No ROSIO: No Infertility: No ART Treatment: No Uterine Anomaly: No IUGR: No Hx Previous C/S: No Macrosomia: No Hx Loss/Stillborn: No PIH: No Hx : No Placenta Previa/Abruption: No Depression/PP Depression: No PTL/PROM: No Post Hemorrhage: No Current Procedures: Ultrasound; NST Obstetrical History Comments: G1 current will have to deliver at [place] via c/s due to 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 Heart Disease: No Hosp/Surgery: No Autoimmune Disorder: No Anesthetic Complications: No Kidney Disease: No Abnormal Pap Smear: No Neuro/Epilepsy: No Psychiatric Disorders: No Other Medical Diseases: No Hepatitis/Liver Disease: No Significant Family History: No Varicosities/Phlebitis: No Trauma/Violence : No Thyroid Dysfunction: No Medical History Comments: beta thal minor INFECTIOUS HISTORY Gonorrhea: No Genital Herpes: No Chlamydia: No Tuberculosis: No Syphilis: No Hepatitis: No HIV/AIDS Exposure: No Rash or Viral Illness: No HPV: No PHYSICAL EXAM General: Normal General: Normal HEENT: Normal HEENT: Normal Neurologic: Normal Neurologic: Normal Thyroid: Normal Thyroid: Normal Heart: Normal Heart: Normal Lungs: Normal Lungs: Normal Breast: Normal Breast: Normal Back: Abnormal Back: Normal Abdomen: Normal Abdomen: Normal Genitourinary Exam: Normal Genitourinary Exam: Normal Extremities: Normal Extremities: Normal DTRs: Normal DTRs: Normal Pelvic Type: Adequate Pelvic Type: Adequate Physical Exam Comments: Pt appears to be in pain. She has left flank pain. Physical Exam Comments: fetus with myelocel at L5/S1 and Chiari II malformation-plan to deliver at [place] via . Pt also with GDMA2 on glyburide 2.5 bid. FS this am 107. Vital Signs: Reviewed VAGINAL EXAM Dilatation: 1 Effacement: 70 Station: -2 FETUS A Monitoring: External US FHR Category: Category I Admit Comment: Pt came in last night with ctxs with closed cervix and treated with 1 dose of terb and therapeutic rest. Contratctions had decreased in force and frequency until recently...now painful. Cervix now 1-2/50/-2 soft. Will give procardia 20 mg po now. Case d/w Dr. Pelletier at [place] and she accepts pt in transfer. [facility] contacted for transport. PLANS FOR LABOR AND DELIVERY Labor and Delivery: None Pain Management: Spinal Other Pain Management Plans: scheduled for csection Feeding Preference: Breast Benefit of Breast Feed Discussed: Yes Circumcision: N/A INFORMED CONSENT Signature: with User ID: [email or web address]
--- NOTE | 2016-10-17 12:17 | Admission Physical ---
Datetime Report Generated by CPN: 10/17/2016 12:17 CURRENT ADMISSION Hx Assessment: The History has been Reviewed and is Current Chief Complaint: Other Chief Complaint: Uterine Contractions Chief Complaint Other: kidney stone pain Admit Impression- Other: Pain control ALLERGIES Medication Allergies: No Medication Allergies: No Known Allergies (10/13/2016) Medication Allergies: No Known Allergies (10/02/2016) Medication Allergies: No Known Allergies (09/28/2016) Medication Allergies: No Known Allergies (08/13/2016) Latex: No Latex Allergies Food Allergies: n/a Environmental Allergies: n/a OBSTETRICAL HISTORY EDC: 11/17/2016 00:00 : 1 Para: 0 Para: 0 Term: 0 : 0 SAB: 0 IAB: 0 Ectopic: 0 Livin Cesareans: 0 VBACs: 0 Multiple Births: 0 Gestational Diabetes: No Rh Sensitization: No Incompetent Cervix: No ROSIO: No Infertility: No ART Treatment: No Uterine Anomaly: No IUGR: No Hx Previous C/S: No Macrosomia: No Hx Loss/Stillborn: No PIH: No Hx : No Placenta Previa/Abruption: No Depression/PP Depression: No PTL/PROM: No Post Hemorrhage: No Current Procedures: Ultrasound; NST Obstetrical History Comments: G1 current will have to deliver at [place] via c/s due to 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 Heart Disease: No Hosp/Surgery: No Autoimmune Disorder: No Anesthetic Complications: No Kidney Disease: No Abnormal Pap Smear: No Neuro/Epilepsy: No Psychiatric Disorders: No Other Medical Diseases: No Hepatitis/Liver Disease: No Significant Family History: No Varicosities/Phlebitis: No Trauma/Violence : No Thyroid Dysfunction: No Medical History Comments: beta thal minor INFECTIOUS HISTORY Gonorrhea: No Genital Herpes: No Chlamydia: No Tuberculosis: No Syphilis: No Hepatitis: No HIV/AIDS Exposure: No Rash or Viral Illness: No HPV: No PHYSICAL EXAM General: Normal General: Normal HEENT: Normal HEENT: Normal Neurologic: Normal Neurologic: Normal Thyroid: Normal Thyroid: Normal Heart: Normal Heart: Normal Lungs: Normal Lungs: Normal Breast: Normal Breast: Normal Back: Abnormal Back: Normal Abdomen: Normal Abdomen: Normal Genitourinary Exam: Normal Genitourinary Exam: Normal Extremities: Normal Extremities: Normal DTRs: Normal DTRs: Normal Pelvic Type: Adequate Pelvic Type: Adequate Physical Exam Comments: Pt appears to be in pain. She has left flank pain. Physical Exam Comments: fetus with myelocel at L5/S1 and Chiari II malformation-plan to deliver at [place] via . Pt also with GDMA2 on glyburide 2.5 bid. FS this am 107. Vital Signs: Reviewed VAGINAL EXAM Dilatation: 1 Effacement: 70 Station: -2 MEMBRANES Pooling: Negative Membranes: Intact FETUS A Monitoring: External US Monitoring: External US FHR- Baseline: 140 Variability: Moderate 6-25bpm FHR Category: Category I FHR Category: Category I Admit Comment: Pt came in last night with ctxs with closed cervix and treated with 1 dose of terb and therapeutic rest. Contratctions had decreased in force and frequency until recently...now painful. Cervix now 1-2/50/-2 soft. Will give procardia 20 mg po now. Case d/w Dr. Pelletier at [place] and she accepts pt in transfer. [facility] contacted for transport. PLANS FOR LABOR AND DELIVERY Labor and Delivery: None Pain Management: Spinal Other Pain Management Plans: scheduled for csection Feeding Preference: Breast Benefit of Breast Feed Discussed: Yes Circumcision: N/A INFORMED CONSENT Signature: with User ID: [email or web address] Signature: with User ID: [email or web address] : with User ID: [email or web address]
--- NOTE | 2016-10-17 12:20 | Admission Physical ---
Datetime Report Generated by Patti: 10/17/2016 12:20 Chief Complaint: Other Chief Complaint Other: kidney stone pain Admit Impression- Other: Pain control General: Normal HEENT: Normal Neurologic: Normal Thyroid: Normal Heart: Normal Lungs: Normal Breast: Normal Back: Abnormal Abdomen: Normal Genitourinary Exam: Normal Extremities: Normal DTRs: Normal Pelvic Type: Adequate Physical Exam Comments: Pt appears to be in pain. She has left flank pain. Vital Signs: Reviewed Dilatation: 1 Effacement: 70 Station: -2 Pooling: Negative Membranes: Intact Monitoring: External US FHR- Baseline: 140 Variability: Moderate 6-25bpm FHR Category: Category I Signature: with User ID: [email or web address]
== END 2016-10-15 11:50 | disposition home or self-care (01) | DRG 781 ==
LOC: LC 14:49 → OBSVTOIN 17:05 → LR 17:05 → INTOOBSV 17:25 → LR 17:25 → UNDOADMOB 17:25 → 2S 18:30 → LR 18:30
PROVIDERS: ADMIT Obstetrics & Gynecology; ATTEND Obstetrics & Gynecology
PROC: 4A1HXCZ Monitoring of Products of Conception, Cardiac Rate, External Approach (ICD-10-PCS; principal; 2016-10-13)
DX: O26.833 Pregnancy related renal disease, third trimester (principal); N20.0 Calculus of kidney; O24.415 Gestational diabetes mellitus in pregnancy, controlled by oral hypoglycemic drugs; Z3A.35 35 weeks gestation of pregnancy
CPT/HCPCS: 36415; 59025; 80048; 80307; 81001; 82962; 85025; G0378; G0379; J1170; J2300; J2405; S0119

== ENCOUNTER 2016-10-16 12:31 | Emergency (ER) | payer OTHER ==
--- NOTE | 2016-10-16 13:21 | ER Document Report ---
ED Medical Screen (RME) - General Stated Complaint: BACK PAIN Time seen by provider: 13:17 Mode of Arrival: Ambulatory Information source: Patient Notes: 21 yo female 36 weeks scheduled for c section 5-16. Sent to [facility] they ([facility])thought it was labor, turned out to be 8mm ;eft kidney , 6mm in the right.left kidney. Was d/c'd , returnt to [facility] and was admitted intractable vomiting, left flank pain, released yesterday-sunday by dr. sarabia. Today here because she can't geep water or food down, vomiting since she got home. No diarrhea. LLQ lower abd. pain that is not timeable. Urine 4-28 showed 3+ no culture done at [facility], [facility], no antibiotic pills but taking zofran, took 5mg percocet for the pain at 11:00. TRAVEL OUTSIDE OF THE [place] IN LAST 30 DAYS: No - Related Data Allergies/Adverse Reactions: No Known Allergies Allergy (Verified 10/13/16 16:08) Past Medical History Psychiatric Medical History: Denies: Hx Depression Physical Exam - Vital signs Vitals: Temp Pulse BP Pulse Ox 98.0 F 84 122/71 98 10/16/16 13:21 10/16/16 13:21 10/16/16 13:21 10/16/16 13:21 Course - Vital Signs Vital signs: Temp Pulse Resp BP Pulse Ox 98.0 F 84 122/71 98 10/16/16 13:21 10/16/16 13:21 10/16/16 13:21 10/16/16 13:21
[2016-10-16] MEDS ORDERED: NORMAL SALINE 1000 ML 1,000 ML IV ONE (13:23)
[2016-10-16 13:24] VITALS: BP 122/71
[2016-10-16 14:21] LABS: ABSOLUTE BASOPHILS # (AUTO) 0.1 10^3/uL (0.0-0.2); ABSOLUTE EOSINOPHILS # (AUTO) 0.1 10^3/uL (0.0-0.6); ABSOLUTE LYMPHOCYTES (AUTO) 2.2 10^3/uL (0.5-4.7); ABSOLUTE MONOCYTES (AUTO) 0.9 10^3/uL (0.1-1.4); ABSOLUTE NEUT (AUTO) 12.2 10^3/uL (1.7-8.2); BASOPHILS % (AUTO) 0.4 % (0-2); EOSINOPHILS % (AUTO) 0.9 % (0-6); HEMATOCRIT 27.2 % (36.0-47.0); HEMOGLOBIN 8.6 g/dL (12.0-15.5); HGB HCT DIFFERENCE -1.4; LYMPHOCYTES % (AUTO) 14.2 % (13-45); MEAN CORPUSCULAR HGB CONC 31.8 g/dL (32.0-36.0); MEAN CORPUSCULAR VOLUME 60 fl (80-97); MONOCYTES % (AUTO) 5.7 % (3-13); RED BLOOD COUNT 4.55 10^6/uL (3.72-5.28); RED CELL DISTRIBUTION WIDTH 14.1 % (11.5-14.0); SEGMENTED NEUTROPHILS % (AUTO) 78.8 % (42-78); WHITE BLOOD COUNT 15.5 10^3/uL (4.0-10.5)
[2016-10-16 14:23] LABS: APPEARANCE,URINE CLEAR; BILIRUBIN,URINE NEGATIVE (NEGATIVE); GLUCOSE, URINE NEGATIVE (NEGATIVE); KETONES,URINE NEGATIVE (NEGATIVE); LEUKOCYTE ESTERASE,URINE SMALL (NEGATIVE); NITRITE,URINE NEGATIVE (NEGATIVE); PROTEIN,URINE NEGATIVE (NEGATIVE); URINE SPECIFIC GRAVITY 1.002; UROBILINOGEN,URINE NEGATIVE mg/dL (<2.0)
[2016-10-16 14:45] LABS: ALANINE AMINOTRANSFERASE 19 U/L (9-52); ALBUMIN 3.1 g/dL (3.5-5.0); ALKALINE PHOSPHATASE 98 U/L (38-126); ANION GAP 8 (5-19); ASPARTATE AMINO TRANSFERASE 17 U/L (14-36); BILIRUBIN,DIRECT 0.1 mg/dL (0.0-0.4); BILIRUBIN,TOTAL 0.6 mg/dL (0.2-1.3); BLOOD UREA NITROGEN 3 mg/dL (7-20); CALCIUM 9.1 mg/dL (8.4-10.2); CARBON DIOXIDE 27 mmol/L (22-30); CHLORIDE 104 mmol/L (98-107); CREATININE RESULT 0.63 mg/dL (0.52-1.25); GLUCOSE 77 mg/dL (75-110); POTASSIUM 4.3 mmol/L (3.6-5.0); TOTAL PROTEIN 5.9 g/dL (6.3-8.2)
[2016-10-16 14:49] LABS: ANISOCYTOSIS SLIGHT; HYPOCHROMASIA 3+; MICROCYTOSIS 3+; OVALOCYTES 1+; POIKILOCYTOSIS 1+; POLYCHROMASIA 1+; SCHISTOCYTES 1+
== END 2016-10-16 22:50 | disposition left against medical advice (07) ==
LOC: ER 12:31
DX: O21.2 Late vomiting of pregnancy (principal); O26.893 Other specified pregnancy related conditions, third trimester; R10.32 Left lower quadrant pain; Z3A.36 36 weeks gestation of pregnancy; Z53.20 Procedure and treatment not carried out because of patient's decision for unspecified reasons
CPT/HCPCS: 36415; 80053; 81001; 85025; 87086; 99281

== ENCOUNTER 2016-12-02 16:06 | Emergency (ER) | payer OTHER ==
[2016-12-02] MEDS ORDERED: KETOROLAC TROMETHAMINE INJ/PF 30 MG/1 ML SDV IV ONE (16:36)
[2016-12-02] MEDS ORDERED: NORMAL SALINE 1000 ML 1,000 ML IV PRN (16:36)
[2016-12-02] MEDS ORDERED: ONDANSETRON HCL INJ/PF 4 MG/2 ML SDV IV ONE (16:36)
--- NOTE | 2016-12-02 16:38 | ER Document Report ---
ED Medical Screen (RME) - General Chief Complaint: Flank Pain Stated Complaint: ABDOMINAL PAIN Time Seen by Provider: 12/02/16 16:31 Mode of Arrival: Ambulatory Information source: Patient TRAVEL OUTSIDE OF THE [place] IN LAST 30 DAYS: No - HPI Patient complains to provider of: Right Flank pain Onset: Last week Onset/Duration: Persistent Quality of pain: Sharp, Stabbing Severity: Severe Pain Level: 5 Associated Symptoms: Dysuria, Nausea Notes: 12/02/16 16:37 Is a 21-year-old female presenting to the emergency room complaining of right flank pain is been going on for the past week or so, she was diagnosed with a 6 mm kidney stone on the right back in August when she was , she also had an 8 mm stone in the left which she passed, however continues to have flank pain on the right, it is associated with dysuria and nausea at times - Related Data Allergies/Adverse Reactions: No Known Allergies Allergy (Verified 12/02/16 16:32) Past Medical History Renal/ Medical History: Denies: Hx Peritoneal Dialysis Psychiatric Medical History: Denies: Hx Depression Physical Exam - Vital signs Vitals: Temp Pulse Resp BP Pulse Ox 98.3 F 92 20 121/70 99 12/02/16 16:20 12/02/16 16:20 12/02/16 16:20 12/02/16 16:20 12/02/16 16:20 Course - Vital Signs Vital signs: Temp Pulse Resp BP Pulse Ox 98.3 F 92 20 121/70 99 12/02/16 16:20 12/02/16 16:20 12/02/16 16:20 12/02/16 16:20 12/02/16 16:20
[2016-12-02 17:12] LABS: ABSOLUTE BASOPHILS # (AUTO) 0.2 10^3/uL (0.0-0.2); ABSOLUTE EOSINOPHILS # (AUTO) 0.2 10^3/uL (0.0-0.6); ABSOLUTE LYMPHOCYTES (AUTO) 2.6 10^3/uL (0.5-4.7); ABSOLUTE MONOCYTES (AUTO) 0.9 10^3/uL (0.1-1.4); ABSOLUTE NEUT (AUTO) 8.1 10^3/uL (1.7-8.2); BASOPHILS % (AUTO) 1.3 % (0-2); EOSINOPHILS % (AUTO) 1.6 % (0-6); HEMATOCRIT 35.4 % (36.0-47.0); HEMOGLOBIN 10.6 g/dL (12.0-15.5); HGB HCT DIFFERENCE -3.6; LYMPHOCYTES % (AUTO) 21.7 % (13-45); MEAN CORPUSCULAR HEMOGLOBIN 17.4 pg (27.0-33.4); MEAN CORPUSCULAR HGB CONC 29.9 g/dL (32.0-36.0); MONOCYTES % (AUTO) 7.8 % (3-13); RED BLOOD COUNT 6.07 10^6/uL (3.72-5.28); RED CELL DISTRIBUTION WIDTH 16.1 % (11.5-14.0); SEGMENTED NEUTROPHILS % (AUTO) 67.6 % (42-78)
--- NOTE | 2016-12-02 17:16 | RADIOLOGY REPORT (SQ) ---
EXAM DESCRIPTION: CT LTD RENAL STONE PROTOCOL ON COMPLETED DATE/TIME: 12/02/2016 5:00 pm REASON FOR STUDY: flank pain COMPARISON: None. TECHNIQUE: CT scan of the abdomen and pelvis performed without intravenous or oral contrast. Images reviewed with lung, soft tissue, and bone windows. Reconstructed coronal and sagittal MPR images revi ewed. All images stored on PACS. All CT scanners at this facility use dose modulation, iterative reconstruction, and/or weight based d osing when appropriate to reduce radiation dose to as low as reasonably achievable (ALARA). [facility]: Dose Right [facility]: CareDose [facility]: Dose Right [facility]: Teradose 4D [facility]: Hamstersoft RADIATION DOSE: 6.41mGy. LIMITATIONS: None. FINDINGS: LOWER CHEST: No significant findings. No nodules or infiltrates. NON-CONTRASTED LIVER, SPLEEN, ADRENALS: Evaluation limited by lack of IV contrast. No identified sign ificant masses. PANCREAS: No masses. No peripancreatic inflammatory changes. GALLBLADDER: No identified stones by CT criteria. No inflammatory changes to suggest cholecystitis. RIGHT KIDNEY AND URETER: No suspicious masses. Assessment limited by lack of IV contrast. Few punct ate nonobstructing calcifications are seen. No hydronephrosis or hydroureter. LEFT KIDNEY AND URETER: No suspicious masses. Assessment limited by lack of IV contrast. Few puncta te nonobstructing calcifications are seen. No hydronephrosis or hydroureter. AORTA AND RETROPERITONEUM: No aneurysm. No retroperitoneal masses or adenopathy. BOWEL AND PERITONEAL CAVITY: No obvious masses or inflammatory changes. No free fluid. APPENDIX: Normal. PELVIS, BLADDER, AND ABDOMINAL WALL:No abnormal masses. No free fluid. Bladder normal. BONES: No significant findings. OTHER: No other significant finding. IMPRESSION: Punctate nonobstructing nephroliths bilaterally. No hydronephrosis or ureterolithiasis. TECHNICAL DOCUMENTATION: JOB ID: [id number] Quality ID # [id number]: Final reports with documentation of one or more dose reduction techniques (e.g., Au tomated exposure control, adjustment of the mA and/or kV according to patient size, use of iterative reconstruction technique) 2010 [employer]- All Rights Reserved
[2016-12-02 17:20] LABS: ALANINE AMINOTRANSFERASE 21 U/L (9-52); ALBUMIN 4.3 g/dL (3.5-5.0); ALKALINE PHOSPHATASE 97 U/L (38-126); ANION GAP 13 (5-19); ASPARTATE AMINO TRANSFERASE 15 U/L (14-36); BILIRUBIN,DIRECT 0.3 mg/dL (0.0-0.4); BILIRUBIN,TOTAL 0.5 mg/dL (0.2-1.3); BLOOD UREA NITROGEN 14 mg/dL (7-20); CALCIUM 9.8 mg/dL (8.4-10.2); CARBON DIOXIDE 27 mmol/L (22-30); CHLORIDE 103 mmol/L (98-107); CREATININE RESULT 0.74 mg/dL (0.52-1.25); GLUCOSE 97 mg/dL (75-110); LIPASE 72.2 U/L (23-300); POTASSIUM 4.3 mmol/L (3.6-5.0); SODIUM 142.8 mmol/L (137-145); TOTAL PROTEIN 7.9 g/dL (6.3-8.2)
[2016-12-02 17:32] LABS: BURR CELLS SLIGHT; MICROCYTOSIS 3+; OVALOCYTES 1+; POIKILOCYTOSIS 2+; TEAR DROP CELLS SLIGHT
[2016-12-02 17:33] LABS: ANISOCYTOSIS 1+
[2016-12-02 17:34] LABS: MEAN CORPUSCULAR VOLUME 58 fl (80-97)
[2016-12-02 17:40] LABS: APPEARANCE,URINE CLOUDY; BILIRUBIN,URINE NEGATIVE (NEGATIVE); GLUCOSE, URINE NEGATIVE (NEGATIVE); KETONES,URINE NEGATIVE (NEGATIVE); LEUKOCYTE ESTERASE,URINE LARGE (NEGATIVE); NITRITE,URINE POSITIVE (NEGATIVE); PROTEIN,URINE >=500 mg/dL (NEGATIVE); URINE SPECIFIC GRAVITY 1.014; UROBILINOGEN,URINE NEGATIVE mg/dL (<2.0)
[2016-12-02] MEDS ORDERED: CEFTRIAXONE 1 GM/D5W RTU 50 ML IV ONE (17:47)
--- NOTE | 2016-12-02 18:09 | ER Document Report ---
ED GI/ - General Mode of Arrival: Ambulatory TRAVEL OUTSIDE OF THE [place] IN LAST 30 DAYS: No - HPI Onset: Other - Refer to HPI notes Location: Right flank Associated symptoms: Nausea, Urinary frequency, Urinary urgency Similar symptoms previously: Yes Recently seen / treated by doctor: Yes <DREA FAIRBANKS - Last Filed: 12/02/16 19:11> <MARIBEL ROGERS - Last Filed: 12/02/16 19:51> - General Chief Complaint: Flank Pain Stated Complaint: ABDOMINAL PAIN Time Seen by Provider: 12/02/16 16:31 Notes: Patient is a 21-year-old female presenting to the emergency department for right flank pain and frequency. Patient states that she was diagnosed with kidney stones when she was and believes that she passed a kidney stone from the left. Patient was diagnosed with a 6 mm kidney stone on the right in August as well as an 8 mm stone on the left side. Patient states she has frequency with some retention, as well as some intermittent nausea. Patient has no known drug allergies. (DREA FAIRBANKS) - Related Data Allergies/Adverse Reactions: No Known Allergies Allergy (Verified 12/02/16 16:32) Past Medical History - General Information source: Patient - Social History Smoking Status: Never Smoker Cigarette use (# per day): No Chew tobacco use (# tins/day): No Frequency of alcohol use: None Drug Abuse: None Family History: None Patient has suicidal ideation: No Patient has homicidal ideation: No Renal/ Medical History: Reports: Hx Kidney Stones Surgical Hx: Negative - Immunizations Hx Diphtheria, Pertussis, Tetanus Vaccination: Yes <DREA FAIRBANKS - Last Filed: 12/02/16 19:11> Review of Systems - Review of Systems Constitutional: No symptoms reported EENT: No symptoms reported Cardiovascular: No symptoms reported Respiratory: No symptoms reported Gastrointestinal: No symptoms reported Genitourinary: See HPI, Frequency, Flank pain, Retention Female Genitourinary: No symptoms reported Musculoskeletal: No symptoms reported Skin: No symptoms reported Hematologic/Lymphatic: No symptoms reported Neurological/Psychological: No symptoms reported -: Yes All other systems reviewed and negative <DREA FAIRBANKS - Last Filed: 12/02/16 19:11> Physical Exam - Vital signs Interpretation: Normal - General General appearance: Appears well, Alert In distress: Mild - HEENT Head: Normocephalic, Atraumatic Eyes: Normal Pupils: PERRL Mucous membranes: Moist - Respiratory Respiratory status: No respiratory distress Chest status: Nontender Breath sounds: Normal Chest palpation: Normal - Cardiovascular Rhythm: Regular Heart sounds: Normal auscultation Murmur: No - Abdominal Inspection: Normal Distension: No distension Bowel sounds: Normal Tenderness: Nontender Organomegaly: No organomegaly - Back Back: Tender - Tenderness to palpation over the right lateral rib cage - Extremities General upper extremity: Normal inspection, Normal ROM, Normal strength General lower extremity: Normal inspection, Normal ROM, Normal strength - Neurological Neuro grossly intact: Yes Cognition: Normal Orientation: AAOx4 [place] Coma Scale Eye Opening: Spontaneous [place] Coma Scale Verbal: Oriented Luis Coma Scale Motor: Obeys Commands Luis Coma Scale Total: 15 Speech: Normal - Psychological Associated symptoms: Normal affect, Normal mood - Skin Skin Temperature: Warm Skin Moisture: Dry <DREA FAIRBANKS - Last Filed: 12/02/16 19:11> - Back Back: CVA tenderness - R <MARIBEL ROGERS - Last Filed: 12/02/16 19:51> - Vital signs Vitals: Temp Pulse Resp BP Pulse Ox 98.3 F 92 20 121/70 99 12/02/16 16:20 12/02/16 16:20 12/02/16 16:20 12/02/16 16:20 12/02/16 16:20 Course - Laboratory Result Diagrams: 12/02/16 16:55 12/02/16 16:55 <DREA FAIRBANKS - Last Filed: 12/02/16 19:11> - Laboratory Result Diagrams: 12/02/16 16:55 12/02/16 16:55 - Diagnostic Test Radiology reviewed: Reports reviewed <MARIBEL ROGERS - Last Filed: 12/02/16 19:51> - Re-evaluation Re-evalutation: 12/02/16 18:28 Re-evaluated patient at this time. Discussed lab results with patient and answered all questions. Patient is stable, tolerating PO and is comfortable with being discharged at this time. (DREA FAIRBANKS) Patient is a 21-year-old female who comes in complaining of side pain. Patient has kidney stones but they are nonobstructing on CT. Urine with a lot of bacteria, consistent with UTI and pyelonephritis. Patient's pain is controlled at this time. She is able to eat and drink without difficulty. Urine culture has been sent. Patient has been given a dose of Rocephin here in the emergency department. She is going to be discharged home with Keflex and is to follow-up with her doctor this week. Patient is to return immediately if she has any worsening pain, fever, nausea vomiting, or any other concerns. (MARIBEL ROGERS) - Vital Signs Vital signs: Temp Pulse Resp BP Pulse Ox 98.0 F 80 18 119/53 L 100 12/02/16 18:39 12/02/16 18:39 12/02/16 18:39 12/02/16 18:39 12/02/16 18:39 - Laboratory Laboratory results interpreted by me: 12/02/16 12/02/16 16:55 16:55 WBC 12.0 H RBC 6.07 H Hgb 10.6 L Hct 35.4 L MCV 58 L MCH 17.4 L MCHC 29.9 L RDW 16.1 H Urine Protein >=500 H Urine Blood MODERATE H Urine Nitrite POSITIVE H Ur Leukocyte Esterase LARGE H Discharge <DREA FAIRBANKS - Last Filed: 12/02/16 19:11> <MARIBEL ROGERS - Last Filed: 12/02/16 19:51> - Discharge Clinical Impression: Pyelonephritis Condition: Stable Disposition: HOME, SELF-CARE Instructions: Pyelonephritis ([facility]), Urinary Tract Infection ([facility]), Rocephin ( [facility]) Prescriptions: Cephalexin Monohydrate [Keflex 500 mg Capsule] 500 mg PO QID #40 capsule Referrals: JOSTIN DAMON MD [Primary Care Provider] - Follow up in 3-5 days Scribe Attestation: 12/02/16 19:50 I personally performed the services described in the documentation, reviewed and edited the documentation which was dictated to the scribe in my presence, and it accurately records my words and actions. (MARIBEL ROGERS) Scribe Documentation - Scribe Written by [place]:: Teo Herman, 12/02/16 19:14 acting as scribe for :: Charla <DREA FAIRBANKS - Last Filed: 12/02/16 19:11>
[2016-12-02 18:43] VITALS: BP 119/53
[2016-12-04 16:02] LABS: PATH REVIEW PATHOLOGIST REVIEWED
== END 2016-12-02 18:43 | disposition home or self-care (01) ==
LOC: ER 16:06
DX: N12 Tubulo-interstitial nephritis, not specified as acute or chronic (principal); R10.9 Unspecified abdominal pain; R35.0 Frequency of micturition
CPT/HCPCS: 99284; 96361; 96375; 96365; 36415; 87086; 83690; 85025; 87088; 80053; 81001; 87186; 76380; J1885; J2405; J7030; J0696

== ENCOUNTER 2018-02-11 10:54 | Emergency (ER) | payer OTHER ==
[2018-02-11 11:07] VITALS: BP 121/67
[2018-02-11] MEDS ORDERED: LIDOCAINE 2% VISCOUS SOLN 20 ML UDCUP PO ONE (11:25)
[2018-02-11] MEDS ORDERED: ACETAMINOPHEN 325 MG TABLET PO ONE (11:25)
[2018-02-11] MEDS ORDERED: IBUPROFEN 800 MG TABLET PO ONE (11:25)
--- NOTE | 2018-02-11 11:27 | ER Document Report ---
HPI - HPI Patient complains to provider of: Persistent sore throat Onset: Other - 2 days Quality of pain: Throbbing Pain Level: 4 Context: 22-year-old female was diagnosed with mononucleosis 2 days ago at [facility]. The rapid strep was negative. They did not give her anything for pain. She is able to swallow but it still hurts. No abdominal pain. No chest pain or shortness of breath. No fever or chills today. Associated Symptoms: None Exacerbated by: Denies Relieved by: Denies Similar symptoms previously: No Recently seen / treated by doctor: Yes - ROS ROS below otherwise negative: Yes Systems Reviewed and Negative: Yes All other systems reviewed and negative - EENT EENT: REPORTS: Sore Throat - REPRODUCTIVE Reproductive: REPORTS: : Past Medical History - General Information source: Patient - Social History Smoking Status: Unknown if Ever Smoked Lives with: Family Family History: None Patient has suicidal ideation: No Patient has homicidal ideation: No - Medical History Medical History: Negative Renal/ Medical History: Reports: Hx Kidney Stones. Denies: Hx Peritoneal Dialysis Psychiatric Medical History: Denies: Hx Depression Surgical Hx: Negative - Immunizations Hx Diphtheria, Pertussis, Tetanus Vaccination: Yes Vertical Provider Document - CONSTITUTIONAL Agree With Documented VS: Yes Exam Limitations: No Limitations - INFECTION CONTROL TRAVEL OUTSIDE OF THE [place] IN LAST 30 DAYS: No - HEENT HEENT: Pharyngeal Erythema - Uvula is midline and not swollen there is large tonsils but there is no peritonsillar abscess. She is swallowing normally - NECK Neck: Supple, Lymphadenopathy-Left - Anterior and posterior, Lymphadenopathy- Right - Anterior posterior - RESPIRATORY Respiratory: Breath Sounds Normal, No Respiratory Distress - CARDIOVASCULAR Cardiovascular: Regular Rate, Regular Rhythm - GI/ABDOMEN Gastrointestinal: Abdomen Soft, Abdomen Non-Tender, No Organomegaly Course - Vital Signs Vital signs: Temp Pulse Resp BP Pulse Ox 98.8 F 95 18 121/67 98 02/11/18 11:05 02/11/18 11:05 02/11/18 11:05 02/11/18 11:05 02/11/18 11:05 Discharge - Discharge Clinical Impression: Sore throat, Mononucleosis Condition: Good Disposition: HOME, SELF-CARE Instructions: Acetaminophen, Ibuprofen (General) ([facility]), Sore Throat ([facility]), Topical Lidocaine ([facility]) Additional Instructions: Lidocaine to help numb the sore throat No sports or activities that could injure your liver on your right upper quadrant or spleen in the left upper quadrant Sleep as much as possible Plenty of fluids Motrin 800 mg up to 3 times a day Tylenol up to 4000 mg per day for the pain return to your primary care doctor or the emergency department for any worsening of the symptoms Prescriptions: Ibuprofen [Motrin 800 mg Tablet] 800 mg PO Q8HP PRN #30 tablet PRN Reason: Forms: Return to School
== END 2018-02-11 11:40 | disposition home or self-care (01) ==
LOC: ER 10:54
DX: J02.9 Acute pharyngitis, unspecified (principal); B27.90 Infectious mononucleosis, unspecified without complication; Z87.442 Personal history of urinary calculi
CPT/HCPCS: 99282; J3490

== ENCOUNTER 2019-01-15 06:40 | Emergency (ER) | payer OTHER ==
--- NOTE | 2019-01-15 07:16 | ER Document Report ---
HPI - HPI Pain Level: 5 Context: Patient is a 23-year-old female who presents the emergency department with a chief complaint of dysuria. She states that she has had her symptoms for the past 2 to 3 days. She has a past medical history of renal calculus in the past. She states that she has some vaginal discharge. She states that it is white. She does have some pelvic pain, which is in her mid pelvic area. - ROS Notes: REVIEW OF SYSTEMS: CONSTITUTIONAL : Denies recent illness. Denies recent unintentional weight loss. Denies fever, chills, or sweats. EENT: Denies eye, ear, throat, or mouth pain, discharge, or symptoms. Denies nasal or sinus congestion. CARDIOVASCULAR: Denies chest pain. RESPIRATORY: Denies shortness of breath, cough, congestion, difficulty breathing, or wheezing. GASTROINTESTINAL: See HPI GENITOURINARY: See HPI MUSCULOSKELETAL: Denies neck and back pain. See HPI SKIN: Denies rash, itchiness, or lesions HEMATOLOGIC : Denies easy bruising or bleeding. LYMPHATIC: Denies swollen, painful, enlarged glands. NEUROLOGICAL: Denies no numbness or tingling denies weakness. Denies headache. Denies altered mental status. Denies alteration in speech. PSYCHIATRIC: Denies stress, anxiety, alteration in sleep patterns, or depression. All other systems reviewed and negative. - REPRODUCTIVE Reproductive: DENIES: : <ALLYSSA CALDERON - Last Filed: 01/15/19 09:12> <MESHA SWEENEY - Last Filed: 01/15/19 10:41> - HPI Time Seen by Provider: 01/15/19 06:52 Past Medical History - Social History Family History: None Renal/ Medical History: Reports: Hx Kidney Stones. Denies: Hx Peritoneal Dialysis Psychiatric Medical History: Denies: Hx Depression - Immunizations Hx Diphtheria, Pertussis, Tetanus Vaccination: Yes <ALLYSSA CALDERON - Last Filed: 01/15/19 09:12> - General Information source: Patient - Social History Smoking Status: Current Every Day Smoker Patient has suicidal ideation: No Patient has homicidal ideation: No Renal/ Medical History: Reports: Hx Kidney Stones Surgical Hx: Negative <MESHA SWEENEY - Last Filed: 01/15/19 10:41> Vertical Provider Document - CONSTITUTIONAL Agree With Documented VS: Yes Exam Limitations: No Limitations General Appearance: No Apparent Distress Notes: PHYSICAL EXAMINATION: GENERAL: Appears well, healthy, well-nourished, no acute distress. HEAD: Normocephalic, atraumatic. EYES: PERRL, conjunctiva normal, all extraocular movements intact, sclera nonicteric ENT: Moist mucous membranes. NECK: Supple, no noticeable swelling, redness, rash. Normal range of motion. LUNGS: Equal breath sounds bilaterally and clear to auscultation. No wheezes rales or rhonchi. CARDIOVASCULAR: S1-S2, regular rate, regular rhythm. Radial pulses 2+, normal. ABDOMEN: Normoactive bowel sounds. Soft, nontender, no guarding, no rebound tenderness, and no masses palpated. EXTREMITIES: Normal strength and range of motion, no pitting or edema. No cyanosis. NEUROLOGICAL: Moves all extremities upon command. Strength 5/5 in all extremities. PSYCH: Normal mood, normal affect. SKIN: Warm, dry. No rash, lesions, ulcerations noted. Normal skin turgor. WORKFORCE ADVISOR: White discharge noted. Cervical motion tenderness. BACK: CVA tenderness on the right side. - INFECTION CONTROL TRAVEL OUTSIDE OF THE [place] IN LAST 30 DAYS: No <ALLYSSA CALDERON - Last Filed: 01/15/19 09:12> Course - Re-evaluation Re-evalutation: 01/15/19 07:16 Pelvic exam done with YUNG Cortes at bedside. Cervical motion tenderness noted. Patient will be started on doxycycline for PID. 01/15/19 08:12 Patient also has a urinary tract infection. Urine will be sent for culture. Since the patient has right CVA tenderness, she will be sent for a renal ultrasound. Bedside report was given to ASHU August. She will follow up with the patient's other labs and ultrasound results. - Vital Signs Vital signs: Temp Pulse Resp BP Pulse Ox 98.1 F 88 14 125/75 98 01/15/19 06:45 01/15/19 06:45 01/15/19 06:45 01/15/19 06:45 01/15/19 06:45 - Laboratory Result Diagrams: 01/15/19 08:09 01/15/19 08:09 <ALLYSSA CALDERON - Last Filed: 01/15/19 09:12> - Re-evaluation Re-evalutation: 01/15/19 08:12 Used to patient. She is calm no complaints of pain. Understands we are waiting for the ultrasound. 01/15/19 10:31 Patient instructed on negative ultrasound. Discharge instructions are already completed by Allyssa. Discharged home. Renal Ultrasound 01/15/19 08:09 IMPRESSION: NORMAL RENAL AND BLADDER ULTRASOUND. - Vital Signs Vital signs: Temp Pulse Resp BP Pulse Ox 98.1 F 88 14 125/75 98 01/15/19 06:45 01/15/19 06:45 01/15/19 06:45 01/15/19 06:45 01/15/19 06:45 - Laboratory Result Diagrams: 01/15/19 08:09 01/15/19 08:09 Laboratory results interpreted by me: 01/15/19 01/15/19 01/15/19 06:57 08:09 08:09 RBC 6.26 H MCV 59 L MCH 19.3 L RDW 14.8 H Basophils % 2.3 H Glucose 113 H Urine Protein 30 H Urine Blood MODERATE H Urine Urobilinogen 2.0 H Ur Leukocyte Esterase LARGE H <MESHA SWEENEY - Last Filed: 01/15/19 10:41> Discharge <ALLYSSA CALDERON - Last Filed: 01/15/19 09:12> <MESHA SWEENEY - Last Filed: 01/15/19 10:41> - Discharge Clinical Impression: Dysuria, Right flank pain, Pelvic inflammatory disease Urinary tract infection Qualifiers: Urinary tract infection type: acute cystitis Hematuria presence: with hematuria Qualified Code(s): N30.01 - Acute cystitis with hematuria Condition: Stable Disposition: HOME, SELF-CARE Instructions: Urinary Tract Infection ([facility]) Additional Instructions: Your are being treated for pelvic inflammatory disease. You are being started on 2 different antibiotics and you need to take these until you finish them. Please return if you have worsening pain, persistent vomiting, spike a fever greater than 101F, or have any other symptoms that are concerning to you. Please follow closely with you primary care physician or your FOREST PATHOLOGY PROFESSOR at your earliest ability. Your urine shows findings consistent with a urinary tract infection. Please take all the antibiotics as directed even if your symptoms have improved. Please follow-up with your primary care physician as needed. Return to emergency room if you develop fever >101F, persistent vomiting, become lethargic, have severe pain in your sides, or any other symptoms that are concerning to you. Prescriptions: Doxycycline Hyclate 100 mg PO BID #28 capsule Metronidazole [Flagyl 500 mg Tablet] 500 mg PO Q6H #28 tablet Referrals: [facility] [Provider Group] - Follow up as needed
[2019-01-15 07:17] LABS: APPEARANCE,URINE CLOUDY; BILIRUBIN,URINE NEGATIVE (NEGATIVE); COLOR,URINE YELLOW; GLUCOSE, URINE NEGATIVE (NEGATIVE); KETONES,URINE NEGATIVE (NEGATIVE); LEUKOCYTE ESTERASE,URINE LARGE (NEGATIVE); NITRITE,URINE NEGATIVE (NEGATIVE); PROTEIN,URINE 30 mg/dL (NEGATIVE); URINE SPECIFIC GRAVITY 1.022
[2019-01-15 07:18] LABS: ADD MANUAL MICROSCOPIC YES
[2019-01-15] MEDS ORDERED: ONDANSETRON HCL INJ/PF 4 MG/2 ML SDV IV ONE (07:26)
[2019-01-15] MEDS ORDERED: NORMAL SALINE 1000 ML 1,000 ML IV ONE (07:26)
[2019-01-15 07:28] LABS: BACTERIA (WET MOUNT) 4+ BACTERIA SEEN; T.VAGINALIS (WET MOUNT) NO TRICHOMONAS SEEN; WBCS (WET MOUNT) 3+ WBCS SEEN; YEAST (WET MOUNT) NO YEAST SEEN
[2019-01-15] MEDS ORDERED: AZITHROMYCIN 250 MG TABLET PO ONE (08:17)
[2019-01-15] MEDS ORDERED: CEFTRIAXONE INJ 1000 MG VIAL IV ONE (08:18)
[2019-01-15 08:22] LABS: ABSOLUTE BASOPHILS # (AUTO) 0.2 10^3/uL (0.0-0.2); ABSOLUTE EOSINOPHILS # (AUTO) 0.2 10^3/uL (0.0-0.6); ABSOLUTE LYMPHOCYTES (AUTO) 2.3 10^3/uL (0.5-4.7); ABSOLUTE MONOCYTES (AUTO) 0.5 10^3/uL (0.1-1.4); ABSOLUTE NEUT (AUTO) 5.7 10^3/uL (1.7-8.2); BASOPHILS % (AUTO) 2.3 % (0-2); EOSINOPHILS % (AUTO) 2.3 % (0-6); HEMATOCRIT 37.1 % (36.0-47.0); HEMOGLOBIN 12.1 g/dL (12.0-15.5); LYMPHOCYTES % (AUTO) 25.9 % (13-45); MEAN CORPUSCULAR HEMOGLOBIN 19.3 pg (27.0-33.4); MEAN CORPUSCULAR HGB CONC 32.6 g/dL (32.0-36.0); MEAN CORPUSCULAR VOLUME 59 fl (80-97); MONOCYTES % (AUTO) 5.4 % (3-13); PLATELET COUNT 350 10^3/uL (150-450); RED BLOOD COUNT 6.26 10^6/uL (3.72-5.28); RED CELL DISTRIBUTION WIDTH 14.8 % (11.5-14.0); SEGMENTED NEUTROPHILS % (AUTO) 64.1 % (42-78); TOTAL CELLS COUNTED % (AUTO) 100 %; WHITE BLOOD COUNT 8.9 10^3/uL (4.0-10.5)
[2019-01-15 08:42] LABS: ANISOCYTOSIS SLIGHT; HYPOCHROMASIA 1+; OVALOCYTES 1+; POIKILOCYTOSIS 1+; POLYCHROMASIA 1+; TEAR DROP CELLS SLIGHT
[2019-01-15 08:43] LABS: PLATELET COMMENT ADEQUATE
[2019-01-15 08:45] LABS: ALANINE AMINOTRANSFERASE 14 U/L (9-52); ALBUMIN 4.5 g/dL (3.5-5.0); ALKALINE PHOSPHATASE 61 U/L (38-126); ANION GAP 10 (5-19); ASPARTATE AMINO TRANSFERASE 23 U/L (14-36); BILIRUBIN,DIRECT 0.2 mg/dL (0.0-0.4); BILIRUBIN,TOTAL 1.1 mg/dL (0.2-1.3); BLOOD UREA NITROGEN 14 mg/dL (7-20); CALCIUM 9.7 mg/dL (8.4-10.2); CARBON DIOXIDE 23 mmol/L (22-30); CHLORIDE 107 mmol/L (98-107); GLUCOSE 113 mg/dL (75-110); POTASSIUM 4.8 mmol/L (3.6-5.0); TOTAL PROTEIN 7.8 g/dL (6.3-8.2)
[2019-01-15 09:09] LABS: CHLAM PCR NOT DETECTED (NOT DETECT)
--- NOTE | 2019-01-15 10:19 | RADIOLOGY REPORT (SQ) ---
EXAM DESCRIPTION: U/S RETROPERITON (RENAL/AORTA) COMPLETED DATE/TIME: 01/15/2019 10:02 am REASON FOR STUDY: right flank pain COMPARISON: Noncontrast CT dated 12/02/2016 TECHNIQUE: Dynamic and static grayscale images acquired of the kidneys and bladder and recorded on P ACS. Additional selected color Doppler and spectral images recorded. LIMITATIONS: None. FINDINGS: RIGHT KIDNEY: Normal size. Normal echogenicity. No solid or suspicious masses. No h ydronephrosis. No calcifications. LEFT KIDNEY: Normal size. Normal echogenicity. No solid or suspicious masses. No hydronephrosi s. No calcifications. BLADDER: No masses. OTHER FINDINGS: No other significant finding. IMPRESSION: NORMAL RENAL AND BLADDER ULTRASOUND. TECHNICAL DOCUMENTATION: JOB ID: [id number] [employer]- All Rights Reserved Reading location - IP/workstation name: [email or web address]
[2019-01-15 10:42] VITALS: BP 137/66
== END 2019-01-15 10:53 | disposition home or self-care (01) ==
LOC: ER 06:40
DX: N30.01 Acute cystitis with hematuria (principal); N73.9 Female pelvic inflammatory disease, unspecified; R30.0 Dysuria; R10.9 Unspecified abdominal pain; R10.2 Pelvic and perineal pain; F17.200 Nicotine dependence, unspecified, uncomplicated; Z87.442 Personal history of urinary calculi
CPT/HCPCS: 99283; 96361; 96375; 96365; 36415; 87210; 84703; 85025; 80053; 81001; 87491; 87591; 76770; J0696; J2405; J7030

== ENCOUNTER 2019-07-13 11:15 | Emergency (ER) | payer SELFPAY ==
[2019-07-13 11:35] VITALS: BP 132/65
== END 2019-07-13 12:13 | disposition left against medical advice (07) ==
LOC: ER 11:15
DX: Z53.21 Procedure and treatment not carried out due to patient leaving prior to being seen by health care provider (principal)

== ENCOUNTER 2019-07-13 17:00 | Emergency (ER) | payer SELFPAY | END 2019-07-13 18:00 | disposition left against medical advice (07) | LOC: ER 17:00 | DX: Z53.21 Procedure and treatment not carried out due to patient leaving prior to being seen by health care provider (principal) ==

== ENCOUNTER 2019-08-29 07:33 | Inpatient (IN) | payer SELFPAY ==
[2019-08-29 08:27] LABS: ABSOLUTE EOSINOPHILS # (AUTO) 0.3 10^3/uL (0.0-0.6); ABSOLUTE LYMPHOCYTES (AUTO) 2.8 10^3/uL (0.5-4.7); ABSOLUTE MONOCYTES (AUTO) 0.5 10^3/uL (0.1-1.4); ABSOLUTE NEUT (AUTO) 4.7 10^3/uL (1.7-8.2); BASOPHILS % (AUTO) 0.5 % (0-2); EOSINOPHILS % (AUTO) 4.1 % (0-6); HEMATOCRIT 37.7 % (36.0-47.0); HEMOGLOBIN 12.5 g/dL (12.0-15.5); LYMPHOCYTES % (AUTO) 33.5 % (13-45); MEAN CORPUSCULAR HEMOGLOBIN 19.9 pg (27.0-33.4); MEAN CORPUSCULAR HGB CONC 33.1 g/dL (32.0-36.0); MONOCYTES % (AUTO) 5.5 % (3-13); PLATELET COUNT 338 10^3/uL (150-450); RED BLOOD COUNT 6.27 10^6/uL (3.72-5.28); RED CELL DISTRIBUTION WIDTH 15.1 % (11.5-14.0); SEGMENTED NEUTROPHILS % (AUTO) 56.4 % (42-78); TOTAL CELLS COUNTED % (AUTO) 100 %; WHITE BLOOD COUNT 8.4 10^3/uL (4.0-10.5)
[2019-08-29 08:31] LABS: APPEARANCE,URINE SLIGHTLY-CLOUDY; BILIRUBIN,URINE NEGATIVE (NEGATIVE); COLOR,URINE YELLOW; GLUCOSE, URINE NEGATIVE (NEGATIVE); KETONES,URINE NEGATIVE (NEGATIVE); LEUKOCYTE ESTERASE,URINE NEGATIVE (NEGATIVE); NITRITE,URINE NEGATIVE (NEGATIVE); PROTEIN,URINE NEGATIVE (NEGATIVE); URINE SPECIFIC GRAVITY 1.016; UROBILINOGEN,URINE NEGATIVE mg/dL (<2.0)
[2019-08-29] MEDS ORDERED: NORMAL SALINE 1000 ML 1,000 ML IV ONE (08:43)
[2019-08-29] MEDS ORDERED: ONDANSETRON HCL INJ/PF 4 MG/2 ML SDV IV ONE (08:43)
[2019-08-29 08:44] LABS: ALBUMIN 4.4 g/dL (3.5-5.0); ALKALINE PHOSPHATASE 50 U/L (38-126); ANION GAP 13 (5-19); ASPARTATE AMINO TRANSFERASE 19 U/L (14-36); BILIRUBIN,DIRECT 0.2 mg/dL (0.0-0.4); BILIRUBIN,TOTAL 0.8 mg/dL (0.2-1.3); BLOOD UREA NITROGEN 14 mg/dL (7-20); CALCIUM 9.7 mg/dL (8.4-10.2); CARBON DIOXIDE 23 mmol/L (22-30); CHLORIDE 104 mmol/L (98-107); GLUCOSE 131 mg/dL (75-110); POTASSIUM 4.2 mmol/L (3.6-5.0); TOTAL PROTEIN 8.1 g/dL (6.3-8.2)
[2019-08-29] MEDS ORDERED: KETOROLAC TROMETHAMINE INJ/PF 30 MG/1 ML SDV IV ONE (08:44)
--- NOTE | 2019-08-29 08:50 | ER Document Report ---
ED General - General Chief Complaint: Abdominal Pain Stated Complaint: LOWER RIGHT ABDOMINAL PAIN Time Seen by Provider: 08/29/19 08:12 TRAVEL OUTSIDE OF THE [place] IN LAST 30 DAYS: No - HPI Notes: Chief complaint: Right side abdominal pain, flank pain and vomiting 24-year-old 1 para 1 with history of past and several prior ED visits for abdominal pain and flank pain related to renal stones and ovarian cysts presents now after awakening several hours ago with severe pain in her right flank area radiating to right lower quadrant abdomen. Several episodes of vomiting. No fever. Normal menses started today. as noted previously with no other surgery. No chronic medications. No known allergies. - Related Data Allergies/Adverse Reactions: No Known Allergies Allergy (Verified 02/11/18 10:55) Past Medical History - General Information source: Patient, Relative, [facility] Records - Social History Smoking Status: Never Smoker Frequency of alcohol use: None Drug Abuse: None Family History: None Patient has suicidal ideation: No Patient has homicidal ideation: No Renal/ Medical History: Reports: Hx Kidney Stones. Denies: Hx Peritoneal Dialysis Psychiatric Medical History: Denies: Hx Depression Past Surgical History: Reports: Hx Section - Immunizations Hx Diphtheria, Pertussis, Tetanus Vaccination: Yes Review of Systems - Review of Systems Notes: Constitutional: Negative for fever. HENT: Negative for sore throat. Eyes: Negative for visual changes. Cardiovascular: Negative for chest pain. Respiratory: Negative for shortness of breath. Gastrointestinal: As per HPI. Genitourinary: Negative for dysuria. Musculoskeletal: As per HPI. Skin: Negative for rash. Neurological: Negative for headaches, weakness or numbness. 10 point ROS negative except as marked above and in HPI. Physical Exam - Vital signs Vitals: Temp Pulse Resp BP Pulse Ox 97.4 F 104 H 22 H 124/95 H 99 08/29/19 07:36 08/29/19 07:36 08/29/19 07:36 08/29/19 07:36 08/29/19 07:36 - Notes Notes: GENERAL: White female appearing stated age who is in severe pain crying and holding right flank area. SKIN: Good turgor no rashes. HEAD: Normocephalic atraumatic. EYES: PERRLA. EOMI. Conjunctivae and sclerae clear. EARS: CANALS AND TMS CLEAR. NOSE: CLEAR. MOUTH: Moist mucosa. Good dentition. No stridor or edema. No drooling. NECK: Supple. No masses or thyromegaly. No adenopathy. Carotids 2+ without bruits. No JVD. BACK: Symmetrical with mild right CVA tenderness. CHEST: Respirations unlabored. Breath sounds clear and symmetrical. HEART: Regular rhythm. No murmur gallop or rub. ABDOMEN: Moderate tenderness of right upper and right lower quadrant. Soft without masses, organomegaly or rebound. Bowel sounds normally active. No bruits. Pelvic: Currently menstruating. Mild cervical motion tenderness. No obvious purulent drainage at cervical loss. Uterus is normal in size position. No tenderness of left ovary or tube. Moderately tender right adnexa with no defin ite mass palpated. EXTREMITIES: No edema. No calf tenderness. Cap refill less than 1.5 seconds. Dorsalis pedis and posterior tibial pulses 3+ and symmetrical. NEUROLOGICAL: GCS 15. Alert and oriented x3. Normal gait. Fluent speech. Cranial nerves II through XII intact. Sensorimotor and cerebellar normal. Normal tone. PSYCHIATRIC: Anxious and crying. Course - Re-evaluation Re-evalutation: 08/29/19 08:50 We will keep the patient n.p.o. and give her IV normal saline along with IV Toradol and Zofran. I requested CT scan abdomen and pelvis. 08/29/19 12:20 CT abdomen/pelvis with IV contrast suggests patient has a hydrosalpinx on the right. Pelvic exam shows mild cervical motion tenderness and she is definitely tender over the right adnexa but not the left. Pelvic ultrasound has been requested and we await results of chlamydia/GC screen. 08/29/19 14:[address] indicate right side hydrosalpinx with no evidence of obstructing renal stone or appendicitis. Pain is a bit better now and patient is no longer vomiting. We started her on some IV Mefoxin and doxycycline. Case has been discussed with Dr. Kimball the on-call TRAFFIC CONTROL OPERATOR physician who will admit. - Vital Signs Vital signs: Temp Pulse Resp BP Pulse Ox 97.4 F 104 H 22 H 124/95 H 99 08/29/19 07:36 08/29/19 07:36 08/29/19 07:36 08/29/19 07:36 08/29/19 07:36 - Laboratory Result Diagrams: 08/29/19 07:54 08/29/19 07:54 Laboratory results interpreted by me: 08/29/19 08/29/19 08/29/19 07:54 07:54 07:54 RBC 6.27 H MCV 60 L MCH 19.9 L RDW 15.1 H Glucose 131 H Urine Blood SMALL H - Diagnostic Test Radiology reviewed: Reports reviewed - CT and ultrasound both indicate right hydrosalpinx per radiologist. There is no evidence of obstructing renal stone and no evidence of appendicitis. Discharge - Discharge Clinical Impression: Hydrosalpinx right Condition: Good Disposition: ADMITTED INPATIENT Admitting Provider: [place] [facility] Admitted: Post
[2019-08-29 08:56] LABS: MEAN CORPUSCULAR VOLUME 60 fl (80-97)
[2019-08-29 08:58] LABS: ANISOCYTOSIS SLIGHT; POLYCHROMASIA SLIGHT; TEAR DROP CELLS SLIGHT
[2019-08-29 08:59] LABS: HYPOCHROMASIA 1+; OVALOCYTES SLIGHT; PLATELET COMMENT ADEQUATE
[2019-08-29] MEDS ORDERED: FENTANYL CITRATE INJ/PF 100 MCG/2 ML AMPUL IV ONE ×3 (09:48→13:18)
--- NOTE | 2019-08-29 10:00 | RADIOLOGY REPORT (SQ) ---
EXAM DESCRIPTION: CT ABD/PELVIS WITH IV ONLY COMPLETED DATE/TIME: 08/29/2019 9:23 am REASON FOR STUDY: RLQ pain COMPARISON: None. TECHNIQUE: CT scan of the abdomen and pelvis performed using helical scanning technique with dynamic intravenous contrast injection. No oral contrast. Images reviewed with lung, soft tissue, and bone windows. Reconstructed coronal and sagittal MPR images reviewed. Delayed images for evaluation of the urinary system also acquired. All images stored on PACS. All CT scanners at this facility use dose modulation, iterative reconstruction, and/or weight based d osing when appropriate to reduce radiation dose to as low as reasonably achievable (ALARA). [facility]: Dose Right [facility]: CareDose [facility]: Dose Right [facility]: Teradose 4D [facility]: Adhysteria CONTRAST TYPE AND DOSE: contrast/concentration: Isovue 350.00 mg/ml; Total Contrast Delivered: 79.0 ml; Total Saline Delivered: 68.0 ml RENAL FUNCTION: None required. The patient is less than 50 years old. RADIATION DOSE: CT Rad equipment meets quality standard of care and radiation dose reduction techniq ues were employed. CTDIvol: 8.8 - 11.2 mGy. DLP: 1019 mGy-cm.. LIMITATIONS: None. FINDINGS: LOWER CHEST: No significant findings. No nodules or infiltrates. LIVER: Normal size. No masses. No dilated ducts. SPLEEN: Normal size. No focal lesions. PANCREAS: No masses. No significant calcifications. No adjacent inflammation or peripancreatic fluid collections. Pancreatic duct not dilated. GALLBLADDER: No identified stones by CT criteria. No inflammatory changes to suggest cholecystitis. ADRENAL GLANDS: No significant masses or asymmetry. RIGHT KIDNEY AND URETER: No solid masses. No significant calcifications. No hydronephrosis or hyd roureter. LEFT KIDNEY AND URETER: No solid masses. A 6 mm nonobstructing stone within the left renal pelvis. No additional stones identified. No hydronephrosis or hydroureter. AORTA AND VESSELS: No aneurysm. No dissection. Renal arteries, SMA, celiac without stenosis. RETROPERITONEUM: No retroperitoneal adenopathy, hemorrhage or masses. BOWEL AND PERITONEAL CAVITY: No masses or inflammatory changes. No free fluid or peritoneal masses. APPENDIX: Normal appendix (Image 65, series 3). PELVIS: Unremarkable urinary bladder. There is a serpiginous dilated fluid-filled tubular structure within the pelvis, likely dilated fallopian tube. Largest dilated loop measures up to 2.6 cm. There is low intermediate Hounsfield attenuation of approximately 20. ABDOMINAL WALL: No masses. No hernias. BONES: No significant or acute findings. OTHER: No other significant finding. IMPRESSION: 1. Serpiginous dilated fluid-filled tubular structure within the pelvis, likely dilated fallopian tube and representing hydro or pyosalpinx. Recommend correlation for cervical motion tend erness and clinical evidence of PID. 2. Normal appendix. TECHNICAL DOCUMENTATION: JOB ID: [id number] Quality ID # [id number]: Final reports with documentation of one or more dose reduction techniques (e.g., Au tomated exposure control, adjustment of the mA and/or kV according to patient size, use of iterative reconstruction technique) 2010 [employer]- All Rights Reserved Reading location - IP/workstation name: [email or web address]
[2019-08-29 10:20] LABS: URINE AMPHETAMINES SCREEN NEGATIVE; URINE BARBITURATES SCREEN NEGATIVE; URINE BENZODIAZEPINES SCREEN NEGATIVE; URINE COCAINE SCREEN NEGATIVE; URINE MARIJUANA (THC) SCREEN NEGATIVE; URINE METHADONE SCREEN NEGATIVE; URINE PHENCYCLIDINE SCREEN NEGATIVE
[2019-08-29 12:25] LABS: T.VAGINALIS (WET MOUNT) NO TRICHOMONAS SEEN
[2019-08-29 12:26] LABS: RBCS (WET MOUNT) 4+ RBCS SEEN; WBCS (WET MOUNT) 2+ WBCS SEEN; YEAST (WET MOUNT) NO YEAST SEEN
[2019-08-29] MEDS ORDERED: METOCLOPRAMIDE HCL INJ/PF 10 MG/2 ML SDV IV ONE (13:17)
[2019-08-29 13:56] LABS: CHLAM PCR NOT DETECTED (NOT DETECT)
--- NOTE | 2019-08-29 14:33 | RADIOLOGY REPORT (SQ) ---
EXAM DESCRIPTION: U/S NON-OB PELVIS TV W/O DOP COMPLETED DATE/TIME: 08/29/2019 2:10 pm REASON FOR STUDY: right adnexal pain/tenderness COMPARISON: None. TECHNIQUE: Dynamic and static grayscale images acquired of the pelvis via transvaginal approach and recorded on PACS. LIMITATIONS: None. FINDINGS: UTERUS: Contour normal. No mass. ENDOMETRIAL STRIPE: No focal or generalized thickening. No masses. CERVIX: No nabothian cysts. RIGHT adnexa: The right ovary is not visualized. Anechoic tubular structure in the right adnexa, onl y partially visualized on this examination, is seen to advantage on prior CT. There is some free flu id within the right adnexal LEFT adnexa: The left ovary is significantly enlarged with multiple cysts, the largest measuring 3.7 cm. There is free fluid present within the left adnexa. FREE FLUID: There is a small amount of free fluid present within the pelvis MEASUREMENTS: UTERUS: 7.8 x 3.2 x 4.2 cm ENDOMETRIAL STRIPE: 8.4 mm RIGHT OVARY: Not visualized. LEFT OVARY: 7.1 x 3.8 x 7.8 cm IMPRESSION: 1. Anechoic tubular structure in the right adnexa, seen to advantage on prior CT, is mo st consistent with a hydrosalpinx. 2. Enlarged left ovary with multiple cysts. TECHNICAL DOCUMENTATION: JOB ID: [id number] 2010 [employer]- All Rights Reserved Rev Reading location - IP/workstation name: [email or web address]
[2019-08-29] MEDS ORDERED: CEFOXITIN 1 GM/D5W RTU 1 GM/50 ML RTUPB IV ONE (14:52)
[2019-08-29] MEDS ORDERED: DOXYCYCLINE HYCLATE INJ 100 MG VIAL IV ONE (14:53)
[2019-08-29] MEDS ORDERED: DOXYCYCLINE HYCLATE INJ 100 MG VIAL IV SCH (15:15)
[2019-08-29] MEDS ORDERED: CEFOXITIN INJ 1 GM VIAL IV SCH (15:15)
[2019-08-29] MEDS ORDERED: PROMETHAZINE HCL INJ 25 MG/1 ML VIAL IV PRN (15:17)
[2019-08-29] MEDS ORDERED: OXYCODONE-ACETAMINOPHEN 5-325 MG TABLET PO PRN (15:17)
[2019-08-29] MEDS ORDERED: ACETAMINOPHEN 325 MG TABLET PO PRN (15:17)
[2019-08-29] MEDS ORDERED: SIMETHICONE 80 MG TAB.CHEW PO PRN (15:17)
--- NOTE | 2019-08-29 15:29 | PDOC H&P ---
History of Present Illness Patient complains of: Right lower quadrant pain. History of Present Illness: IAN STEVE is a 24 year old female She presents with a history of right lower quadrant pain presenting with her menses. Ct in ER shows a normal appendix and right hydrosalpinx. She also presents with cervical motion tenderness. Her pain, nausea and emesis could not be controlled in the ER show she is being admitted for inpatient treatment of PID with IV antibiotics. Past Medical History LMP: 08/29/19 Gynecological Infection: No Psychiatric Medical History: Denies: Depression Past Surgical History Past Surgical History: Reports: Section Social History Smoking Status: Never Smoker Frequency of Alcohol Use: None Hx Recreational Drug Use: No Hx Prescription Drug Abuse: No Family History Family History: None Parental Family History Reviewed: Yes Children Family History Reviewed: Yes Sibling(s) Family History Reviewed.: Yes Medication/Allergy Home Medications: Glyburide [Diabeta 2.5 mg Tablet] 1 tab PO QHS 09/25/16 Glyburide [Diabeta 2.5 mg Tablet] 2.5 mg PO QAM 10/13/16 Ondansetron [Zofran Odt 4 mg Tablet] 8 mg PO Q8HP PRN #30 tab.rapdis 10/15/16 Oxycodone HCl/Acetaminophen [Percocet 5-325 mg Tablet] 1 tab PO Q6HP PRN #30 tablet 10/15/16 Cephalexin Monohydrate [Keflex 500 mg Capsule] 500 mg PO QID #40 capsule 12/02/16 Ibuprofen [Motrin 800 mg Tablet] 800 mg PO Q8HP PRN #30 tablet 02/11/18 Doxycycline Hyclate 100 mg PO BID #28 capsule 01/15/19 Metronidazole [Flagyl 500 mg Tablet] 500 mg PO Q6H #28 tablet 01/15/19 Allergies/Adverse Reactions: No Known Allergies Allergy (Verified 02/11/18 10:55) Physical Exam - Physical Exam Vital Signs: Temp Pulse Resp BP Pulse Ox 97.4 F 104 H 22 H 124/95 H 99 08/29/19 07:36 08/29/19 07:36 08/29/19 07:36 08/29/19 07:36 08/29/19 07:36 Intake & Output 08/28/19 08/29/19 08/30/19 06:59 06:59 06:59 Intake Total 1000 Balance 1000 Weight 69.4 kg General appearance: PRESENT: mild distress Head exam: PRESENT: atraumatic Eye exam: PRESENT: conjunctiva pink, EOMI, PERRLA. ABSENT: scleral icterus Cardiovascular exam: PRESENT: RRR. ABSENT: diastolic murmur, rubs, systolic murmur Pulses: PRESENT: normal dorsalis pedis pul, +2 pedal pulses bilateral Vascular exam: PRESENT: normal capillary refill GI/Abdominal exam: PRESENT: other - tender RLQ, no guard or rebound Gentrourinary exam: PRESENT: other - ER exam reports cervical motion tenderness. Extremities exam: PRESENT: full ROM. ABSENT: calf tenderness, clubbing, pedal edema Neurological exam: PRESENT: alert, awake, oriented to person, oriented to place, oriented to time, oriented to situation, CN II-XII grossly intact. ABSENT: motor sensory deficit Result Laboratory Results: 08/29/19 07:54 08/29/19 07:54 08/29/19 08/29/19 08/29/19 07:54 07:54 07:54 WBC 8.4 RBC 6.27 H Hgb 12.5 Hct 37.7 MCV 60 L MCH 19.9 L MCHC 33.1 RDW 15.1 H Plt Count 338 Seg Neutrophils % 56.4 Sodium 140.3 Potassium 4.2 Chloride 104 Carbon Dioxide 23 Anion Gap 13 BUN 14 Creatinine 0.54 Est GFR ( Amer) > 60 Glucose 131 H Calcium 9.7 Total Bilirubin 0.8 AST 19 Alkaline Phosphatase 50 Total Protein 8.1 Albumin 4.4 Lipase 117.6 Serum HCG, Qual Urine Color YELLOW Urine Appearance SLIGHTLY-CLOUDY Urine pH 6.0 Ur Specific [place] 1.016 Urine Protein NEGATIVE Urine Glucose (UA) NEGATIVE Urine Ketones NEGATIVE Urine Blood SMALL H Urine Nitrite NEGATIVE Ur Leukocyte Esterase NEGATIVE Urine WBC (Auto) 5 Urine RBC (Auto) 4 08/29/19 07:54 WBC RBC Hgb Hct MCV MCH MCHC RDW Plt Count Seg Neutrophils % Sodium Potassium Chloride Carbon Dioxide Anion Gap BUN Creatinine Est GFR ( Amer) Glucose Calcium Total Bilirubin AST Alkaline Phosphatase Total Protein Albumin Lipase Serum HCG, Qual NEGATIVE Urine Color Urine Appearance Urine pH Ur Specific [place] Urine Protein Urine Glucose (UA) Urine Ketones Urine Blood Urine Nitrite Ur Leukocyte Esterase Urine WBC (Auto) Urine RBC (Auto) Impressions: Abdomen/Pelvis CT 08/29/19 08:44 IMPRESSION: 1. Serpiginous dilated fluid-filled tubular structure within the pelvis, likely dilated fallopian tube and representing hydro or pyosalpinx. Recommend correlation for cervical motion tenderness and clinical evidence of PID. 2. Normal appendix. Transvaginal US 08/29/19 12:17 IMPRESSION: 1. Anechoic tubular structure in the right adnexa, seen to advantage on prior CT, is most consistent with a hydrosalpinx. 2. Enlarged left ovary with multiple cysts. Assessment & Plan - Diagnosis (1) Pelvic inflammation in female Is this a current diagnosis for this admission?: Yes - Time Time Spent: 30 to 50 Minutes Medications reviewed and adjusted accordingly: Yes Anticipated discharge: Home Within: within 48 hours - Plan Summary Plan Summary: Plan to admit for IV antibiotics for PID
[2019-08-29] MEDS: HYDROMORPHONE HCL INJ/PF 2 MG/ML AMPULE IV PRN (15:41)
[2019-08-29] MEDS: IBUPROFEN 800 MG TABLET PO SCH ×2 (17:41→23:26)
[2019-08-29] MEDS: DOCUSATE SODIUM 100 MG CAPSULE PO SCH (17:41)
[2019-08-29] MEDS: OXYCODONE-ACETAMINOPHEN 5-325 MG TABLET PO PRN ×2 (18:09→22:15)
[2019-08-29] MEDS: RINGERS SOLUTION,LACTATED 1,000 ML IV PRN (18:09)
[2019-08-29] MEDS ORDERED: INFLUENZA QUAD (6MOS+) 2019-20 VAC 0.5 ML SYR IM ONE (18:52)
[2019-08-29] MEDS: DOXYCYCLINE HYCLATE 100 MG in DEXTROSE 5%-WATER 250 ML IV SCH (22:14)
[2019-08-30] MEDS ORDERED: CEFOXITIN INJ 1 GM VIAL ONE (02:56)
[2019-08-30] MEDS: CEFOXITIN 1 GM/D5W RTU 1 GM/50 ML RTUPB IV SCH ×2 (03:15→14:48)
[2019-08-30] MEDS: RINGERS SOLUTION,LACTATED 1,000 ML IV PRN (03:16)
[2019-08-30] MEDS: IBUPROFEN 800 MG TABLET PO SCH ×3 (06:49→17:12)
[2019-08-30] MEDS: HYDROMORPHONE HCL INJ/PF 2 MG/ML AMPULE IV PRN (06:53)
[2019-08-30] MEDS: DOXYCYCLINE HYCLATE 100 MG in DEXTROSE 5%-WATER 250 ML IV SCH (09:12)
[2019-08-30] MEDS: DOCUSATE SODIUM 100 MG CAPSULE PO SCH ×2 (09:12→17:12)
[2019-08-30] MEDS ORDERED: PRENATAL VITAMIN W DHA CAPSULE PO SCH (10:00)
[2019-08-30] MEDS: OXYCODONE-ACETAMINOPHEN 5-325 MG TABLET PO PRN ×2 (12:24→16:18)
[2019-08-30 19:44] VITALS: BP 110/62
--- NOTE | 2019-09-03 20:08 | PDOC DISCHARGE SUMMARY ---
Impression - Admit/DC Date/PCP Admission Date/Primary Care Provider: 08/29/19 15:31 MARLENE SORIANO MD Discharge Date: 08/30/19 - Discharge Diagnosis (1) Hydrosalpinx Is this a current diagnosis for this admission?: Yes (2) Acute pelvic pain, female Is this a current diagnosis for this admission?: Yes (3) Pelvic inflammation in female Is this a current diagnosis for this admission?: Yes - Additional Information Resuscitation Status: Full Code - S/p evaluation and treatment for lower abdominal/pelvic pain with antibiotics. Imaging studies showed: Abdomen/Pelvis CT 08/29/19 08:44 IMPRESSION: 1. Serpiginous dilated fluid- filled tubular structure within the pelvis, likely dilated fallopian tube and representing hydro or pyosalpinx. Recommend correlation for cervical motion tenderness and clinical evidence of PID. 2. Normal appendix. Transvaginal US 08/29/19 12:17 IMPRESSION: 1. Anechoic tubular structure in the right adnexa, seen to advantage on prior CT, is most consistent with a hydrosalpinx. 2. Enlarged left ovary with multiple cysts. SHe will continue antibiotics outpatient and then will be re-evaluationed in our office with in 1-2 wks. She was given precautions and is to call for worsening condition, fever, chills, inability to tolerate antibiotics or other issues Stable on D/c No pain. No fever, VSS Discharge Diet: As Tolerated Discharge Activity: Activity As Tolerated, No Driving, Pelvic Rest Prescriptions: Ibuprofen [Motrin 800 mg Tablet] 800 mg PO Q8H 10 Days #30 tablet Oxycodone HCl/Acetaminophen [Percocet 5-325 mg Tablet] 1 tab PO Q4HP PRN 3 Days #15 tablet PRN Reason: Doxycycline Hyclate [Vibramycin 100 mg Tablet] 100 mg PO BID 14 Days #28 tablet Home Medications: Doxycycline Hyclate [Vibramycin 100 mg Tablet] 100 mg PO BID 14 Days #28 tablet 08/30/19 Ibuprofen [Motrin 800 mg Tablet] 800 mg PO Q8H 10 Days #30 tablet 08/30/19 Oxycodone HCl/Acetaminophen [Percocet 5-325 mg Tablet] 1 tab PO Q4HP PRN 3 Days #15 tablet 08/30/19 Ibuprofen [Motrin 600 Mg Tablet] 600 mg PO Q6H #15 tablet 03/15/20 Metronidazole [Flagyl 500 mg Tablet] 500 mg PO BID #28 tablet 08/31/19 Metoclopramide HCl [Reglan 10 mg Tablet] 1 - 2 tab PO ASDIR PRN #25 tablet 09/01/19 Promethazine HCl [Phenergan 25 mg Supp.rect] 25 mg FL Q4HP PRN #20 supp.rect 09/01/19 History of Present Illiness History of Present Illness: IAN STEVE is a 24 year old female Physical Exam - Physical Exam Vital Signs: Temp Pulse Resp BP Pulse Ox 98.1 F 76 18 110/62 100 08/30/19 19:38 08/30/19 19:38 08/30/19 19:38 08/30/19 19:38 08/30/19 19:38 Results Laboratory Results: WBC 8.4 10^3/uL (4.0-10.5) 08/29/19 07:54 RBC 6.27 10^6/uL (3.72-5.28) H 08/29/19 07:54 Hgb 12.5 g/dL (12.0-15.5) 08/29/19 07:54 Hct 37.7 % (36.0-47.0) 08/29/19 07:54 MCV 60 fl (80-97) L 08/29/19 07:54 MCH 19.9 pg (27.0-33.4) L 08/29/19 07:54 MCHC 33.1 g/dL (32.0-36.0) 08/29/19 07:54 RDW 15.1 % (11.5-14.0) H 08/29/19 07:54 Plt Count 338 10^3/uL (150-450) 08/29/19 07:54 Lymph % (Auto) 33.5 % (13-45) 08/29/19 07:54 [place] % (Auto) 5.5 % (3-13) 08/29/19 07:54 Eos % (Auto) 4.1 % (0-6) 08/29/19 07:54 Baso % (Auto) 0.5 % (0-2) 08/29/19 07:54 Absolute Neuts (auto) 4.7 10^3/uL (1.7-8.2) 08/29/19 07:54 Absolute Lymphs (auto) 2.8 10^3/uL (0.5-4.7) 08/29/19 07:54 Absolute Monos (auto) 0.5 10^3/uL (0.1-1.4) 08/29/19 07:54 Absolute Eos (auto) 0.3 10^3/uL (0.0-0.6) 08/29/19 07:54 Absolute Basos (auto) 0.0 10^3/uL (0.0-0.2) 08/29/19 07:54 Seg Neutrophils % 56.4 % (42-78) 08/29/19 07:54 Platelet Comment ADEQUATE 08/29/19 07:54 Polychromasia SLIGHT 08/29/19 07:54 Hypochromasia 1+ 08/29/19 07:54 Basophilic Stippling PRESENT 08/29/19 07:54 Anisocytosis SLIGHT 08/29/19 07:54 Microcytosis 3+ 08/29/19 07:54 Tear Drop Cells SLIGHT 08/29/19 07:54 Ovalocytes SLIGHT 08/29/19 07:54 Sodium 140.3 mmol/L (137-145) 08/29/19 07:54 Potassium 4.2 mmol/L (3.6-5.0) 08/29/19 07:54 Chloride 104 mmol/L (98-107) 08/29/19 07:54 Carbon Dioxide 23 mmol/L (22-30) 08/29/19 07:54 Anion Gap 13 (5-19) 08/29/19 07:54 BUN 14 mg/dL (7-20) 08/29/19 07:54 Creatinine 0.54 mg/dL (0.52-1.25) 08/29/19 07:54 Est GFR ( Amer) > 60 (>60) 08/29/19 07:54 Est GFR (MDRD) Non-Af > 60 (>60) 08/29/19 07:54 Glucose 131 mg/dL (75-110) H 08/29/19 07:54 Calcium 9.7 mg/dL (8.4-10.2) 08/29/19 07:54 Total Bilirubin 0.8 mg/dL (0.2-1.3) 08/29/19 07:54 Direct Bilirubin 0.2 mg/dL (0.0-0.4) 08/29/19 07:54 Neonat Total Bilirubin Not Reportable 08/29/19 07:54 Neonat Direct Bilirubin Not Reportable 08/29/19 07:54 Neonat Indirect Bili Not Reportable 08/29/19 07:54 AST 19 U/L (14-36) 08/29/19 07:54 ALT 12 U/L (<35) 08/29/19 07:54 Alkaline Phosphatase 50 U/L (38-126) 08/29/19 07:54 Total Protein 8.1 g/dL (6.3-8.2) 08/29/19 07:54 Albumin 4.4 g/dL (3.5-5.0) 08/29/19 07:54 Lipase 117.6 U/L (23-300) 08/29/19 07:54 Serum HCG, Qual NEGATIVE (NEGATIVE) 08/29/19 07:54 Urine Color YELLOW 08/29/19 07:54 Urine Appearance SLIGHTLY-CLOUDY 08/29/19 07:54 Urine pH 6.0 (5.0-9.0) 08/29/19 07:54 Ur Specific [place] 1.016 08/29/19 07:54 Urine Protein NEGATIVE mg/dL (NEGATIVE) 08/29/19 07:54 Urine Glucose (UA) NEGATIVE mg/dL (NEGATIVE) 08/29/19 07:54 Urine Ketones NEGATIVE mg/dL (NEGATIVE) 08/29/19 07:54 Urine Blood SMALL (NEGATIVE) H 08/29/19 07:54 Urine Nitrite NEGATIVE (NEGATIVE) 08/29/19 07:54 Urine Bilirubin NEGATIVE (NEGATIVE) 08/29/19 07:54 Urine Urobilinogen NEGATIVE mg/dL (<2.0) 08/29/19 07:54 Ur Leukocyte Esterase NEGATIVE (NEGATIVE) 08/29/19 07:54 Urine WBC (Auto) 5 /HPF 08/29/19 07:54 Urine RBC (Auto) 4 /HPF 08/29/19 07:54 Squamous Epi Cells Auto <1 /HPF 08/29/19 07:54 Urine Mucus (Auto) RARE /LPF 08/29/19 07:54 Urine Ascorbic Acid NEGATIVE (NEGATIVE) 08/29/19 07:54 Urine HCG, Qual NEGATIVE (NEGATIVE) 08/29/19 07:54 Trichomonas (Wet Prep) NO TRICHOMONAS SEEN 08/29/19 12:11 Vaginal WBC 2+ WBCS SEEN 08/29/19 12:11 Vaginal RBC 4+ RBCS SEEN 08/29/19 12:11 Vaginal Yeast NO YEAST SEEN 08/29/19 12:11 Urine Opiates Screen NEGATIVE 08/29/19 07:54 Urine Methadone Screen NEGATIVE 08/29/19 07:54 Ur Barbiturates Screen NEGATIVE 08/29/19 07:54 Ur Phencyclidine Scrn NEGATIVE 08/29/19 07:54 Ur Amphetamines Screen NEGATIVE 08/29/19 07:54 U Benzodiazepines Scrn NEGATIVE 08/29/19 07:54 Urine Cocaine Screen NEGATIVE 08/29/19 07:54 U Marijuana (THC) Screen NEGATIVE 08/29/19 07:54 Chlamydia DNA (PCR) NOT DETECTED (NOT DETECT) 08/29/19 12:11 N.gonorrhoeae DNA (PCR) NOT DETECTED (NOT DETECT) 08/29/19 12:11 Slides for Path Review SEE COMMENT 08/29/19 07:54 Impressions: Abdomen/Pelvis CT 08/29/19 08:44 IMPRESSION: 1. Serpiginous dilated fluid-filled tubular structure within the pelvis, likely dilated fallopian tube and representing hydro or pyosalpinx. Recommend correlation for cervical motion tenderness and clinical evidence of PID. 2. Normal appendix. Transvaginal US 08/29/19 12:17 IMPRESSION: 1. Anechoic tubular structure in the right adnexa, seen to advantage on prior CT, is most consistent with a hydrosalpinx. 2. Enlarged left ovary with multiple cysts. Stroke Is this a Stroke Patient?: No Acute Heart Failure - Is this a Heart Failure Patient?: No
== END 2019-08-30 20:22 | disposition home or self-care (01) | DRG 759 ==
LOC: ER 07:33 → EH 15:31 → 2N 17:29
PROVIDERS: ADMIT Obstetrics & Gynecology; ATTEND Obstetrics & Gynecology
DX: N73.9 Female pelvic inflammatory disease, unspecified (principal); N70.11 Chronic salpingitis; N83.202 Unspecified ovarian cyst, left side; Z87.442 Personal history of urinary calculi; Z98.891 History of uterine scar from previous surgery
CPT/HCPCS: 36415; 74177; 76830; 80053; 80307; 81001; 81025; 83690; 84703; 85025; 87040; 87210; 87491; 87591; 90686; 96361; 96365; 96375; 96376; 99285; J0694; J1170; J1885; J2405; J2550; J2765; J3010; J3490; J7030; J7060; J7120

== ENCOUNTER 2019-08-31 07:08 | Emergency (ER) | payer OTHER ==
[2019-08-31 08:06] LABS: ABSOLUTE BASOPHILS # (AUTO) 0.1 10^3/uL (0.0-0.2); ABSOLUTE EOSINOPHILS # (AUTO) 0.1 10^3/uL (0.0-0.6); ABSOLUTE LYMPHOCYTES (AUTO) 1.1 10^3/uL (0.5-4.7); ABSOLUTE MONOCYTES (AUTO) 0.7 10^3/uL (0.1-1.4); ABSOLUTE NEUT (AUTO) 10.6 10^3/uL (1.7-8.2); HEMATOCRIT 37.1 % (36.0-47.0); HEMOGLOBIN 11.9 g/dL (12.0-15.5); LYMPHOCYTES % (AUTO) 8.5 % (13-45); MEAN CORPUSCULAR HEMOGLOBIN 19.5 pg (27.0-33.4); MEAN CORPUSCULAR HGB CONC 32.1 g/dL (32.0-36.0); MEAN CORPUSCULAR VOLUME 61 fl (80-97); MONOCYTES % (AUTO) 5.7 % (3-13); PLATELET COUNT 334 10^3/uL (150-450); RED CELL DISTRIBUTION WIDTH 15.5 % (11.5-14.0); SEGMENTED NEUTROPHILS % (AUTO) 83.8 % (42-78); TOTAL CELLS COUNTED % (AUTO) 100 %; WHITE BLOOD COUNT 12.7 10^3/uL (4.0-10.5)
[2019-08-31 08:15] LABS: ALBUMIN 4.1 g/dL (3.5-5.0); ALKALINE PHOSPHATASE 55 U/L (38-126); ANION GAP 9 (5-19); ASPARTATE AMINO TRANSFERASE 15 U/L (14-36); BILIRUBIN,DIRECT 0.2 mg/dL (0.0-0.4); BILIRUBIN,TOTAL 0.8 mg/dL (0.2-1.3); BLOOD UREA NITROGEN 9 mg/dL (7-20); CARBON DIOXIDE 30 mmol/L (22-30); CHLORIDE 103 mmol/L (98-107); GLUCOSE 113 mg/dL (75-110); POTASSIUM 4.1 mmol/L (3.6-5.0); TOTAL PROTEIN 7.5 g/dL (6.3-8.2)
[2019-08-31] MEDS ORDERED: MORPHINE SULFATE 10 MG/ML INJ IV ONE (08:35)
[2019-08-31] MEDS ORDERED: NORMAL SALINE 1000 ML 1,000 ML IV ONE (08:36)
[2019-08-31] MEDS ORDERED: METOCLOPRAMIDE HCL INJ/PF 10 MG/2 ML SDV IV ONE (08:36)
[2019-08-31] MEDS ORDERED: METRONIDAZOLE 500 MG TABLET PO ONE (08:38)
[2019-08-31] MEDS ORDERED: DOXYCYCLINE HYCLATE 100 MG TABLET PO ONE (08:38)
--- NOTE | 2019-08-31 08:40 | ER Document Report ---
ED GI/ - General Chief Complaint: Abdominal Pain Stated Complaint: ABDOMINAL PAIN Time Seen by Provider: 08/31/19 08:30 Notes: CHIEF COMPLAINT: Worsening right abdominal pain HPI: 24-year-old female presenting to the emergency department complaining of worsening right abdominal pain with vomiting. Patient states she was admitted to the hospital 2 days ago for hydrosalpinx and PID. Patient states she was discharged on doxycycline and Percocet but her pharmacy was closed and she was not able to fill the prescription. Has not started the pain medication or the antibiotics. No fever. Had worsening pain overnight with several episodes of vomiting. Did not call the PROTECTIVE SIGNAL OPERATOR service prior to coming back to the emergency department. ROS: See HPI - all other systems were reviewed and are otherwise negative Constitutional: no fever Eyes: no drainage, no blurred vision ENT: no runny nose, no sore throat Cardiovascular: no chest pain Resp: no SOB, no cough GI: Positive vomiting, no diarrhea, positive abdominal pain : no dysuria Integumentary: no rash Allergy: no hives Musculoskeletal: no extremity pain or swelling Neurological: no numbness/tingling, no weakness MEDICATIONS: I agree with the patient medications as charted by the RN. ALLERGIES: I agree with the allergies as charted by the RN. PAST MEDICAL HISTORY/PAST SURGICAL HISTORY: Reviewed and agree as charted by RN. SOCIAL HISTORY: Reviewed and agree as charted by RN. FAMILY HISTORY: No significant familial comorbid conditions directly related to patient complaint EXAM: Reviewed vital signs as charted by RN. CONSTITUTIONAL: Alert and oriented and responds appropriately to questions. Well-appearing; well-nourished, moderate distress secondary to pain HEAD: Normocephalic; atraumatic EYES: PERRL; Conjunctivae clear, sclerae non-icteric ENT: normal nose; no rhinorrhea; moist mucous membranes; pharynx without lesions noted, no uvula edema or deviation, no tonsillar hypertrophy, phonation normal NECK: Supple without meningismus; non-tender; no cervical lymphadenopathy, no masses CARD: RRR; no murmurs, no clicks, no rubs, no gallops; symmetric distal pulses RESP: Normal chest excursion without splinting or tachypnea; breath sounds clear and equal bilaterally; no wheezes, no rhonchi, no rales, pulse oximetry ABD/GI: Normal bowel sounds; non-distended; soft, moderate tenderness to the right lower quadrant right abdomen on palpation, no rebound, no guarding; no palpable organomegaly or masses. BACK: The back appears normal and is non-tender to palpation, there is no CVA tenderness EXT: Normal ROM in all joints; non-tender to palpation; no cyanosis, no effusions, no edema SKIN: Normal color for age and race; warm; dry; good turgor; no acute lesions noted NEURO: Moves all extremities equally; Motor and sensory function intact PSYCH: The patient's mood and manner are appropriate. Grooming and personal hygiene are appropriate. MDM: 24-year-old female admitted for hydrosalpinx possible PID. Unable to find a definitive discharge note but patient indicates she was to be on Percocet and doxycycline. Patient is moderately uncomfortable at this time. Will give patient pain medication, IV fluids, will start antibiotics. Plan to discuss with PROTECTIVE SIGNAL OPERATOR regarding management plan TRAVEL OUTSIDE OF THE [place] IN LAST 30 DAYS: No - Related Data Allergies/Adverse Reactions: No Known Allergies Allergy (Verified 08/31/19 07:20) Past Medical History - Social History Smoking Status: Current Every Day Smoker Chew tobacco use (# tins/day): No Frequency of alcohol use: None Drug Abuse: None Family History: None Patient has suicidal ideation: No Patient has homicidal ideation: No Renal/ Medical History: Reports: Hx Kidney Stones. Denies: Hx Peritoneal Dialysis Psychiatric Medical History: Denies: Hx Depression Past Surgical History: Reports: Hx Section - Immunizations Hx Diphtheria, Pertussis, Tetanus Vaccination: Yes Physical Exam - Vital signs Vitals: Temp Pulse Resp BP Pulse Ox 99.0 F 108 H 18 129/84 H 99 08/31/19 07:12 08/31/19 07:12 08/31/19 07:12 08/31/19 07:12 08/31/19 07:12 Course - Re-evaluation Re-evalutation: 08/31/19 09:[address] Ada Talley PROTECTIVE SIGNAL OPERATOR. She does recall the patient. We discussed the patient's return in case. She requests I add Flagyl 500 mg twice daily for 14 days as well as ibuprofen. I discussed this at length with the patient. She states that her prescription for doxycycline and Percocet should be at her pharmacy and she should be able to fill it today. I will give her prescriptions for the Flagyl and the ibuprofen, can be discharged when comfortable - Vital Signs Vital signs: Temp Pulse Resp BP Pulse Ox 99.0 F 108 H 18 129/84 H 99 08/31/19 07:12 08/31/19 07:12 08/31/19 07:12 08/31/19 07:12 08/31/19 07:12 - Laboratory Result Diagrams: 08/31/19 07:45 08/31/19 07:45 Laboratory results interpreted by me: 08/31/19 08/31/19 07:45 07:45 WBC 12.7 H RBC 6.10 H Hgb 11.9 L MCV 61 L MCH 19.5 L RDW 15.5 H Lymph % (Auto) 8.5 L Absolute Neuts (auto) 10.6 H Seg Neutrophils % 83.8 H Glucose 113 H Discharge - Discharge Clinical Impression: Acute pelvic pain, female Vomiting Qualifiers: Vomiting type: unspecified Vomiting Intractability: non-intractable Nausea presence: with nausea Qualified Code(s): R11.2 - Nausea with vomiting, unspecified Condition: Stable Disposition: HOME, SELF-CARE Additional Instructions: Fill your prescriptions for doxycycline and Percocet from your pharmacy. Also start the Flagyl and ibuprofen. Follow-up with PROTECTIVE SIGNAL OPERATOR for further evaluation and treatment call for appointment Prescriptions: Metronidazole [Flagyl 500 mg Tablet] 500 mg PO BID #28 tablet Ibuprofen [Motrin 600 Mg Tablet] 600 mg PO Q6H #15 tablet Referrals: ADA TALLEY MD [ACTIVE PROVISIONAL STAFF] - Follow up as needed
[2019-08-31 08:44] LABS: ANISOCYTOSIS SLIGHT; HYPOCHROMASIA 2+; OVALOCYTES 1+; PLATELET CLUMPS PRESENT; PLATELET COMMENT ADEQUATE; PLATELET LARGE PRESENT; POIKILOCYTOSIS 1+
[2019-08-31] MEDS ORDERED: OXYCODONE-ACETAMINOPHEN 5-325 MG TABLET PO ONE (09:34)
[2019-08-31 10:22] VITALS: BP 148/83
[2019-08-31] MEDS ORDERED: KETOROLAC TROMETHAMINE INJ/PF 30 MG/1 ML SDV IV ONE (10:25)
== END 2019-08-31 11:05 | disposition home or self-care (01) ==
LOC: ER 07:08
DX: R10.2 Pelvic and perineal pain (principal); R10.9 Unspecified abdominal pain; R11.2 Nausea with vomiting, unspecified; F17.200 Nicotine dependence, unspecified, uncomplicated; Z87.442 Personal history of urinary calculi
CPT/HCPCS: 99284; 96361; 96374; 96375; 36415; 83690; 85025; 80053; J1885; J2765; J2270; J7030

== ENCOUNTER 2019-09-01 10:34 | Emergency (ER) | payer OTHER ==
[2019-09-01] MEDS ORDERED: NORMAL SALINE 1000 ML 1,000 ML IV ONE (11:00)
[2019-09-01] MEDS ORDERED: ONDANSETRON HCL INJ/PF 4 MG/2 ML SDV IV ONE (11:01)
[2019-09-01] MEDS ORDERED: KETOROLAC TROMETHAMINE INJ/PF 30 MG/1 ML SDV IV ONE (11:01)
--- NOTE | 2019-09-01 11:02 | ER Document Report ---
ED Medical Screen (RME) - General Chief Complaint: Lower Abdominal Pain Stated Complaint: LOWER ABDOMINAL PAIN/VOMITING Time Seen by Provider: 09/01/19 10:57 Mode of Arrival: Ambulatory Information source: Patient Notes: Patient is an otherwise healthy 24-year-old female presenting to the emergency department chief complaint of right lower quadrant abdominal pain. Patient reports she was admitted to this hospital a few days ago for an infection of her fallopian tube. Patient reports she is unable to hold down any antibiotics or pain medications due to persistent vomiting. Patient reports continued pain in the right lower quadrant worsening over the last few days. Exam: Tenderness to palpation in the right lower quadrant. I have greeted and performed a rapid initial assessment of this patient. A comprehensive ED assessment and evaluation of the patient, analysis of test results and completion of the medical decision making process will be conducted by additional ED providers. I have specifically instructed the patient or family members with the patient to immediately return to any nursing staff should anything change in the patient's condition or with their chief complaint. TRAVEL OUTSIDE OF THE [place] IN LAST 30 DAYS: No - Related Data Allergies/Adverse Reactions: No Known Allergies Allergy (Verified 08/31/19 07:20) Past Medical History - Social History Frequency of alcohol use: None Drug Abuse: None Renal/ Medical History: Reports: Hx Kidney Stones. Denies: Hx Peritoneal Dialysis Psychiatric Medical History: Denies: Hx Depression Past Surgical History: Reports: Hx Section - Immunizations Hx Diphtheria, Pertussis, Tetanus Vaccination: Yes Physical Exam - Vital signs Vitals: Temp Pulse Resp BP Pulse Ox 98.1 F 99 18 116/63 98 09/01/19 10:53 09/01/19 10:53 09/01/19 10:53 09/01/19 10:53 09/01/19 10:53 Course - Vital Signs Vital signs: Temp Pulse Resp BP Pulse Ox 98.1 F 99 18 116/63 98 09/01/19 10:53 09/01/19 10:53 09/01/19 10:53 09/01/19 10:53 09/01/19 10:53
[2019-09-01 11:41] LABS: APPEARANCE,URINE SLIGHTLY-CLOUDY; BILIRUBIN,URINE NEGATIVE (NEGATIVE); COLOR,URINE YELLOW; GLUCOSE, URINE NEGATIVE (NEGATIVE); KETONES,URINE TRACE mg/dL (NEGATIVE); LEUKOCYTE ESTERASE,URINE SMALL (NEGATIVE); NITRITE,URINE NEGATIVE (NEGATIVE); PROTEIN,URINE NEGATIVE (NEGATIVE)
[2019-09-01 12:03] LABS: ABSOLUTE BASOPHILS # (AUTO) 0.1 10^3/uL (0.0-0.2); ABSOLUTE MONOCYTES (AUTO) 0.7 10^3/uL (0.1-1.4); ABSOLUTE NEUT (AUTO) 10.8 10^3/uL (1.7-8.2); BASOPHILS % (AUTO) 0.6 % (0-2); EOSINOPHILS % (AUTO) 0.1 % (0-6); HEMATOCRIT 33.1 % (36.0-47.0); HEMOGLOBIN 10.8 g/dL (12.0-15.5); LYMPHOCYTES % (AUTO) 7.6 % (13-45); MEAN CORPUSCULAR HEMOGLOBIN 19.6 pg (27.0-33.4); MEAN CORPUSCULAR HGB CONC 32.6 g/dL (32.0-36.0); MEAN CORPUSCULAR VOLUME 60 fl (80-97); MONOCYTES % (AUTO) 5.8 % (3-13); PLATELET COUNT 314 10^3/uL (150-450); RED BLOOD COUNT 5.49 10^6/uL (3.72-5.28); RED CELL DISTRIBUTION WIDTH 15.3 % (11.5-14.0); SEGMENTED NEUTROPHILS % (AUTO) 85.9 % (42-78); TOTAL CELLS COUNTED % (AUTO) 100 %; WHITE BLOOD COUNT 12.5 10^3/uL (4.0-10.5)
[2019-09-01 12:35] LABS: HYPOCHROMASIA 1+
[2019-09-01 12:36] LABS: ANISOCYTOSIS SLIGHT; OVALOCYTES 1+; PLATELET COMMENT ADEQUATE; POIKILOCYTOSIS SLIGHT; POLYCHROMASIA SLIGHT; TEAR DROP CELLS SLIGHT
[2019-09-01 13:04] LABS: ALBUMIN 3.7 g/dL (3.5-5.0); ALKALINE PHOSPHATASE 65 U/L (38-126); ANION GAP 7 (5-19); ASPARTATE AMINO TRANSFERASE 16 U/L (14-36); BILIRUBIN,DIRECT 0.3 mg/dL (0.0-0.4); BLOOD UREA NITROGEN 9 mg/dL (7-20); CARBON DIOXIDE 29 mmol/L (22-30); CHLORIDE 102 mmol/L (98-107); GLUCOSE 107 mg/dL (75-110); POTASSIUM 4.1 mmol/L (3.6-5.0); TOTAL PROTEIN 7.1 g/dL (6.3-8.2)
--- NOTE | 2019-09-01 13:13 | ER Document Report ---
ED GI/ - General Chief Complaint: Lower Abdominal Pain Stated Complaint: LOWER ABDOMINAL PAIN/VOMITING Time Seen by Provider: 09/01/19 10:57 Primary Care Provider: MU PEREZ MD [ACTIVE STAFF] - Follow up in 3-5 days Mode of Arrival: Ambulatory Notes: Patient is a 24-year-old female who presents to the emergency department with a chief complaint of vomiting and abdominal pain. Patient was recently admitted to the [facility] unit for pelvic inflammatory disease with hydronephrosis phalanx. She was sent home on doxycycline and Flagyl, but states that she continues to vomit up her medications. She also states that she has not had a bowel movement in the past 5 days. She was on her menstrual cycle when she was admitted in the emergency department. TRAVEL OUTSIDE OF THE [place] IN LAST 30 DAYS: No - Related Data Allergies/Adverse Reactions: No Known Allergies Allergy (Verified 08/31/19 07:20) Past Medical History - General Information source: Patient - Social History Smoking Status: Never Smoker Frequency of alcohol use: None Drug Abuse: None Family History: None Patient has suicidal ideation: No Patient has homicidal ideation: No Renal/ Medical History: Reports: Hx Kidney Stones. Denies: Hx Peritoneal Dialysis Psychiatric Medical History: Denies: Hx Depression Past Surgical History: Reports: Hx Section - Immunizations Hx Diphtheria, Pertussis, Tetanus Vaccination: Yes Review of Systems - Review of Systems Notes: REVIEW OF SYSTEMS: CONSTITUTIONAL : Denies recent illness. Denies recent unintentional weight loss. Denies fever, chills, or sweats. EENT: Denies eye, ear, throat, or mouth pain, discharge, or symptoms. Denies nasal or sinus congestion. CARDIOVASCULAR: Denies chest pain. RESPIRATORY: Denies shortness of breath, cough, congestion, difficulty igna thing, or wheezing. GASTROINTESTINAL: Denies nausea, vomiting, and diarrhea. Denies abdominal pain. Denies constipation. Last BM: 5 days ago. GENITOURINARY: Denies difficulty urinating, burning, blood in urine, urgency or frequency. FEMALE GENITOURINARY: See HPI. MUSCULOSKELETAL: Denies neck and back pain. Denies joint pain or swelling. SKIN: Denies rash, itchiness, or lesions HEMATOLOGIC : Denies easy bruising or bleeding. LYMPHATIC: Denies swollen, painful, enlarged glands. NEUROLOGICAL: Denies no numbness or tingling denies weakness. Denies headache. Denies altered mental status. Denies alteration in speech. PSYCHIATRIC: Denies stress, anxiety, alteration in sleep patterns, or depression. All other systems reviewed and negative. Physical Exam - Vital signs Vitals: Temp Pulse Resp BP Pulse Ox 98.1 F 99 18 116/63 98 09/01/19 10:53 09/01/19 10:53 09/01/19 10:53 09/01/19 10:53 09/01/19 10:53 - Notes Notes: PHYSICAL EXAMINATION: GENERAL: Appears well, healthy, well-nourished, no acute distress. HEAD: Normocephalic, atraumatic. EYES: PERRL, conjunctiva normal, all extraocular movements intact, sclera nonicteric ENT: Moist mucous membranes. NECK: Supple, no noticeable swelling, redness, rash. Normal range of motion. LUNGS: Equal breath sounds bilaterally and clear to auscultation. No wheezes rales or rhonchi. CARDIOVASCULAR: S1-S2, regular rate, regular rhythm. Radial pulses 2+, normal. ABDOMEN: Normoactive bowel sounds. Soft, very tender right lower quadrant, moderate guarding, no rebound tenderness, and no masses palpated. EXTREMITIES: Normal strength and range of motion, no pitting or edema. No cyanosis. NEUROLOGICAL: Moves all extremities upon command. Strength 5/5 in all extremities. PSYCH: Normal mood, normal affect. SKIN: Warm, dry. No rash, lesions, ulcerations noted. Normal skin turgor. Course - Re-evaluation Re-evalutation: 09/01/19 14:43 Hematology shows a leukocytosis of 12,500, with a left shift. This is not very much different than yesterday's labs. Chemistries are unremarkable. Urinalysis shows a small amount of blood, small amount of leukocytes, and trace ketones. She received IV fluids here in the emergency department and she also received Zofran. Patient was able to tolerate oral fluids.I spoke with Dr. Perez, the ORGANIZATIONAL DEVELOPMENT DIRECTOR on-call. She is recommending the patient be sent home with antiemetics, which I agree with. Ultrasound does not show any difference from previous ultrasound done on . Patient is in agreement with this plan. Follow-up precautions were given. Verbal discharge instructions were given to the patient. They verbalized understanding. They are stable for discharge. - Vital Signs Vital signs: Temp Pulse Resp BP Pulse Ox 98.2 F 68 16 126/78 H 100 09/01/19 15:01 09/01/19 15:01 09/01/19 15:01 09/01/19 15:01 09/01/19 15:01 - Laboratory Result Diagrams: 09/01/19 11:41 09/01/19 11:41 Laboratory results interpreted by me: 09/01/19 09/01/19 09/01/19 11:21 11:41 11:41 WBC 12.5 H RBC 5.49 H Hgb 10.8 L Hct 33.1 L MCV 60 L MCH 19.6 L RDW 15.3 H Lymph % (Auto) 7.6 L Absolute Neuts (auto) 10.8 H Seg Neutrophils % 85.9 H Creatinine 0.47 L Urine Ketones TRACE H Urine Blood SMALL H Urine Urobilinogen 4.0 H Ur Leukocyte Esterase SMALL H Discharge - Discharge Clinical Impression: Pelvic inflammation in female Vomiting Qualifiers: Vomiting type: unspecified Vomiting Intractability: unspecified Nausea presence: with nausea Qualified Code(s): R11.2 - Nausea with vomiting, unspecified Condition: Stable Disposition: HOME, SELF-CARE Instructions: Antinausea Medication ([facility]), Intravenous (IV) Fluids ([facility]), Reglan ([facility]), Vomiting ([facility]) Additional Instructions: You were seen today in the emergency department for vomiting and abdominal pain. Please continue the medications you were given when you were discharged from the emergency department yesterday and when you were discharged from the hospital. You are now being placed on antinausea medication. Please use these as needed for nausea or vomiting. Prescriptions: Promethazine HCl [Phenergan 25 mg Supp.rect] 25 mg [place] Q4HP PRN #20 supp.rect PRN Reason: Metoclopramide HCl [Reglan 10 mg Tablet] 1 - 2 tab PO ASDIR PRN #25 tablet PRN Reason: Forms: Return to Work Referrals: MU PEREZ MD [ACTIVE STAFF] - Follow up in 3-5 days
--- NOTE | 2019-09-01 14:33 | RADIOLOGY REPORT (SQ) ---
EXAM DESCRIPTION: U/S NON OB PEL TV W/DOPPLER COMPLETED DATE/TIME: 09/01/2019 2:15 pm REASON FOR STUDY: continued right lower pelvic pain COMPARISON: CT abdomen pelvis dated 08/29/2019 and pelvic ultrasound dated 08/29/2019 TECHNIQUE: Dynamic and static grayscale images acquired of the pelvis via transvaginal approach and recorded on PACS. Additional selected color Doppler and spectral images recorded. LIMITATIONS: None. FINDINGS: UTERUS: Contour normal. No mass. ENDOMETRIAL STRIPE: No focal or generalized thickening. No masses. CERVIX: No nabothian cysts. RIGHT OVARY AND DOPPLER: Numerous hypo ago occurred lesions in the right adnexa these could represent ovarian cyst. In light of the prior CT hydrosalpinx remains a possibility. Normal flow. LEFT OVARY AND DOPPLER: Numerous left ovarian cysts the largest measures 4.2 x 2.9 x 3.6 cm. Normal flow. FREE FLUID: There is free fluid in the cul-de-sac. OTHER: No other significant finding. MEASUREMENTS: UTERUS: 8.8 x 3.8 x 3.2 cm. ENDOMETRIAL STRIPE: 7.3 mm. RIGHT OVARY: 5.2 x 3.2 x 2.9 cm. LEFT OVARY: 7.7 x 5.1 x 4.5 cm. IMPRESSION: Findings are similar to August 28. Hypoechoic structures bilaterally consistent with o varian cyst. Possible persistent right-sided hydrosalpinx. TECHNICAL DOCUMENTATION: JOB ID: [id number] [employer]- All Rights Reserved Rev-11/02 Reading location - IP/workstation name: [email or web address]
[2019-09-01] MEDS ORDERED: ACETAMINOPHEN 325 MG TABLET PO ONE (14:51)
[2019-09-01 15:02] VITALS: BP 126/78
== END 2019-09-01 15:07 | disposition home or self-care (01) ==
LOC: ER 10:34
DX: N73.9 Female pelvic inflammatory disease, unspecified (principal); R11.2 Nausea with vomiting, unspecified; R19.4 Change in bowel habit; R31.9 Hematuria, unspecified
CPT/HCPCS: 99284; 96361; 96374; 96375; 36415; 87086; 85025; 81025; 80053; 81001; 76830; 93976; J1885; J2405; J7030